=== PATIENT | male | born 1965 | race American Indian/Alaskan Native ===

== ENCOUNTER 2022-07-26 07:23 | Inpatient (IN) | payer MEDICARE ==
[2022-07-26 08:39] LABS: INR 1.25 (0.87-1.13)
[2022-07-26 08:41] LABS: Basophils % (Auto) 0.2 % (0.0-1.8); Eosinophils % (Auto) 0.1 % (0.0-4.3); Hematocrit 45.7 % (35.5-45.6); Hemoglobin 11.9 gm/dl (11.8-15.2); Lymphocytes # (Auto) 1.5 K/mm3 (1.2-5.4); Lymphocytes % (Auto) 11.2 % (13.4-35.0); Mean Corpuscular HGB Conc 26 % (32-34); Mean Corpuscular Volume 113 fl (84-94); Monocytes # (Auto) 1.2 K/mm3 (0.0-0.8); Monocytes % (Auto) 9.1 % (0.0-7.3); Platelet Count 353 K/mm3 (140-440); Red Blood Count 4.06 M/mm3 (3.65-5.03); Red Cell Distribution Width 16.5 % (13.2-15.2)
--- NOTE | 2022-07-26 08:42 | XRay Report ---
CHEST 1 VIEW 07/26/2022 8:07 AM INDICATION / CLINICAL INFORMATION: Altered Mental Status. COMPARISON: None available. FINDINGS: SUPPORT DEVICES: None. HEART / MEDIASTINUM: Heart is upper normal size for AP portable technique. Mild pulmonary venous rah estion. LUNGS / PLEURA: No significant pulmonary or pleural abnormality. No pneumothorax. ADDITIONAL FINDINGS: No significant additional findings. IMPRESSION: 1. Borderline cardiomegaly with mild pulmonary venous congestion. Signer Name: Marcie Giles MD Signed: 07/26/2022 8:38 AM Workstation Name: [id number]
[2022-07-26 08:50] LABS: Albumin 4.1 g/dL (3.9-5); Calcium 9.7 mg/dL (8.4-10.2)
[2022-07-26 08:57] LABS: ABG HCO3 1.5 mmol/L (20.0-26.0); ABG Methemoglobin 0.7 % (0.0-1.5); ABG Oxygen Saturation 98.5 % (95.0-99.0); ABG PCO2 8.7 mm Hg
[2022-07-26] MEDS ORDERED: SODIUM BICARB 8.4% 50 MEQ/50 ML SYRINGE IV ONE ×4 (08:58→17:00)
[2022-07-26] MEDS ORDERED: SODIUM CHLORIDE 0.9% 1000 ML 1,000 ML IV ONE (09:00)
[2022-07-26 09:05] LABS: ABG Base Excess > -30.0 mmol/L (-2.0-3.0); ABG PH 6.863 pH Units (7.350-7.450)
[2022-07-26] MEDS ORDERED: ETOMIDATE 20 MG/10 ML INJ IV ONE (09:38)
[2022-07-26] MEDS ORDERED: ROCURONIUM 50 MG/5 ML INJ IV ONE (09:38)
[2022-07-26] MEDS: INSULIN REGULAR, HUMAN 100 UNITS in SODIUM CHLORIDE 0.9% 99 ML IV SCH ×4 (09:49→20:32)
[2022-07-26] MEDS ORDERED: SODIUM BICARBONATE 150 MEQ in SODIUM CHLORIDE 0.9% 1000 ML 1,000 ML IV SCH (10:00)
[2022-07-26] MEDS ORDERED: cefTRIAXone/NS 1 GM/50 ML 1 GM/50 ML BAG IV ONE (11:25)
[2022-07-26] MEDS: NORepinephrine/NS 8 MG-250 ML 8 MG/250 ML INFUS..BTL IV SCH ×2 (11:52→23:18)
[2022-07-26 11:53] LABS: ABG Base Excess -28.7 mmol/L (-2.0-3.0); ABG HCO3 5.6 mmol/L (20.0-26.0); ABG Methemoglobin 0.6 % (0.0-1.5); ABG Oxygen Saturation 99.6 % (95.0-99.0); ABG PCO2 37.9 mm Hg
[2022-07-26] MEDS ORDERED: HYDROmorphone 0.5 MG/0.5 ML INJ IV PRN ×2 (11:59→12:04)
[2022-07-26] MEDS ORDERED: oxyCODONE /ACETAMINOPHEN 5-325MG TAB PO PRN (11:59)
[2022-07-26] MEDS ORDERED: ACETAMINOPHEN 325 MG TAB PO PRN ×2 (11:59→12:04)
[2022-07-26] MEDS ORDERED: NORepinephrine/NS 8 MG-250 ML 8 MG/250 ML INFUS..BTL IV SCH (12:00)
--- NOTE | 2022-07-26 12:01 | XRay Report ---
CHEST 1 VIEW 07/26/2022 11:23 AM INDICATION / CLINICAL INFORMATION: Dyspnea. COMPARISON: 07/26/22 8:12 AM FINDINGS: SUPPORT DEVICES: Endotracheal tube has been placed with the tip 6.7 cm above the chato. Right jugula r central line is in place with the tip projecting over the SVC. Esophagogastric tube has been placed with the distal tube doubled back on itself in the distal esophagus. HEART / MEDIASTINUM: No significant abnormality. LUNGS / PLEURA: No significant pulmonary or pleural abnormality. No pneumothorax. ADDITIONAL FINDINGS: No significant additional findings. IMPRESSION: 1. Endotracheal tube in expected position. 2. Esophagogastric tube doubled back on itself in the distal esophagus. Tube should be repositioned a nd advanced into the stomach for optimal positioning. 3. Central line in expected position. Signer Name: Marcie Giles MD Signed: 07/26/2022 11:56 AM Workstation Name: [id number]
[2022-07-26] MEDS ORDERED: VANCOMYCIN 0 MG in SODIUM CHLORIDE 0.9% 500 ML 500 ML IV ONE (12:04)
--- NOTE | 2022-07-26 12:06 | History and Physical Report ---
History of Present Illness Chief complaint: He is really sick History of present illness: 57 YO Male with HTN, DM, HLD, CHF, Metabolic Syndrome, Obesity Hypoventilation Syndrome, OA presents to ED for evaluation. Patient is intubated and on ventilatory support at the time my evaluation is unable to provide history. Patient history provided by who is at bedside during exam and interview. As per the patient was found to be unresponsive today. EMS was notified and upon arrival the patient was found to be in distress and subsequent transported to [facility] for further care and evaluation of the aforementioned symptoms. The patient was seen and evaluated in the emergency department. All lab and imaging studies reviewed. Patient was found to have a [place] Coma Score of 7 upon arrival, diabetic ketoacidosis complicated by acute hypoxemic respiratory failure, sepsis and acute kidney injury. Patient intubated urgently and placed on ventilatory support in the emergency department. Patient also initiated on sepsis and DKA protocols respectively. Patient found to have multiple organ system failure and poor prognosis. Patient informed of prognosis. No reports of fever, chills, chest pain, palpitation, productive cough, skin rash, recent contact, known exposure to COVID-19. No prior admiss ion for review. No medication listed at time of admission for reconciliation. Advanced care planning conducted in ED. Critical care team consulted, cardiology team consulted, nephrology team consulted. Past History Past Medical History: arthritis, diabetes, heart failure, hypertension, other (See HPI) Past Surgical History: Other (Reviewed) Social history: , lives with family Family history: diabetes, hypertension Medications and Allergies Allergies Allergy/AdvReac Type Severity Reaction Status Date / Time No Known Allergies Allergy Unverified 07/26/22 07:55 Active Meds: Active Medications Acetaminophen (Acetaminophen 325 Mg Tab) 650 mg PO Q6H PRN PRN Reason: Pain MILD(1-3)/Fever >100.5/CHAVEZ Hydromorphone HCl (Hydromorphone 0.5 Mg/0.5 Ml Inj) 0.5 mg IV Q23H PRN PRN Reason: Pain , Severe (7-10) Sodium Bicarbonate 150 meq/ (Sodium Chloride) 1,150 mls @ 100 mls/hr IV DIRECT MALDONADO Last Admin: 07/26/22 09:55 Dose: 100 mls/hr Insulin Human Regular 100 (units/ Sodium Chloride) 100 mls @ 1 mls/hr IV TITR MALDONADO; Protocol Last Admin: 07/26/22 09:49 Dose: 8 units/hr, 8 mls/hr NORepinephrine/NS 8 MG-250 ML (Norepinephrine/Ns 8 Mg-250 Ml (Double Conc)) 8 mg in 250 mls @ 3.75 mls/hr IV TITRATE MALDONADO; Protocol Last Titration: 07/26/22 11:55 Dose: 8 mcg/min, 15 mls/hr Oxycodone/Acetaminophen (Oxycodone /Acetaminophen 5-325mg Tab) 1 tab PO Q16H PRN PRN Reason: Pain, Moderate (4-6) Sodium Bicarbonate (Sodium Bicarb 8.4% 50 Meq/50 Ml Syringe) 50 meq IV ONCE ONE Stop: 07/26/22 14:04 Sodium Bicarbonate (Sodium Bicarb 8.4% 50 Meq/50 Ml Syringe) 50 meq IV ONCE ONE Stop: 07/26/22 17:01 Sodium Chloride (Sodium Chloride 0.9% 10 Ml Flush Syringe) 10 ml IV BID MALDONADO Sodium Chloride (Sodium Chloride 0.9% 10 Ml Flush Syringe) 10 ml IV PRN PRN PRN Reason: LINE FLUSH Review of Systems ROS unobtainable: due to endotracheal tube, due to mental status Exam - Constitutional Vitals: Temp Pulse Resp BP Pulse Ox 110 H 20 97/56 100 07/26/22 11:59 07/26/22 11:59 07/26/22 11:59 07/26/22 11:59 General appearance: Present: severe distress - EENT Eyes: Present: miosis ENT: hearing decreased - Neck Neck: Present: supple, normal ROM - Respiratory Respiratory effort: labored Respiratory: bilateral: diminished, rhonchi - Cardiovascular Heart Sounds: Present: S1 & S2. Absent: rub, click - Extremities Extremity abnormal: edema Peripheral Pulses: abnormal (Capillary refill greater than 3.5 seconds) - Abdominal General gastrointestinal: Present: soft, non-tender, non-distended - Integumentary Integumentary: Present: dry, clammy, decreased turgor - Musculoskeletal Musculoskeletal: generalized weakness - Psychiatric Psychiatric: no appropriate mood/affect, no intact judgment & insight, no memory intact - Neurologic Neurologic: CNII-XII intact, no focal deficits, moves all extremities, no gait normal HEART Score - HEART Score Troponin: Troponin T 0.027 ng/mL (0.00-0.029) 07/26/22 08:11 Results - Labs CBC & Chem 7: 07/26/22 08:11 07/26/22 11:36 Labs: Abnormal lab results 07/26/22 07/26/22 07/26/22 Range/Units 07:30 08:11 08:11 WBC 13.5 H (4.5-11.0) K/mm3 Hct 45.7 H (35.5-45.6) % MCV 113 H (84-94) fl MCHC 26 L (32-34) % RDW 16.5 H (13.2-15.2) % Lymph % (Auto) 11.2 L (13.4-35.0) % [place] % (Auto) 9.1 H (0.0-7.3) % [place] # (Auto) 1.2 H (0.0-0.8) K/mm3 Seg Neutrophils % 79.4 H (40.0-70.0) % Seg Neutrophils # 10.7 H (1.8-7.7) K/mm3 PT 17.2 H (12.2-14.9) Sec. INR 1.25 H (0.87-1.13) ABG pH (7.350-7.450) pH Units ABG pO2 (80.0-90.0) mm Hg ABG HCO3 (20.0-26.0) mmol/L ABG O2 Saturation (95.0-99.0) % ABG Base Excess (-2.0-3.0) mmol/L ABG Hemoglobin (14.0-18.0) gm/dl Sodium (137-145) mmol/L Potassium (3.6-5.0) mmol/L Chloride (98-107) mmol/L Carbon Dioxide (22-30) mmol/L BUN (9-20) mg/dL Creatinine (0.8-1.3) mg/dL Glucose (75-100) mg/dL POC Glucose > 600 H (70-105) mg/dL Lactic Acid (0.7-2.0) mmol/L Phosphorus (2.5-4.5) mg/dL Magnesium (1.7-2.3) mg/dL ALT (7-56) units/L Total Creatine Kinase (55-170) units/L Salicylates (2.8-20.0) mg/dL Acetaminophen (10.0-30.0) ug/mL 07/26/22 07/26/22 07/26/22 Range/Units 08:11 08:11 08:11 WBC (4.5-11.0) K/mm3 Hct (35.5-45.6) % MCV (84-94) fl MCHC (32-34) % RDW (13.2-15.2) % Lymph % (Auto) (13.4-35.0) % [place] % (Auto) (0.0-7.3) % [place] # (Auto) (0.0-0.8) K/mm3 Seg Neutrophils % (40.0-70.0) % Seg Neutrophils # (1.8-7.7) K/mm3 PT (12.2-14.9) Sec. INR (0.87-1.13) ABG pH (7.350-7.450) pH Units ABG pO2 (80.0-90.0) mm Hg ABG HCO3 (20.0-26.0) mmol/L ABG O2 Saturation (95.0-99.0) % ABG Base Excess (-2.0-3.0) mmol/L ABG Hemoglobin (14.0-18.0) gm/dl Sodium 136 L (137-145) mmol/L Potassium 7.6 H* (3.6-5.0) mmol/L Chloride 95.0 L (98-107) mmol/L Carbon Dioxide 2 L* (22-30) mmol/L BUN 33 H (9-20) mg/dL Creatinine 2.5 H (0.8-1.3) mg/dL Glucose 1037 H* (75-100) mg/dL POC Glucose (70-105) mg/dL Lactic Acid 4.00 H* (0.7-2.0) mmol/L Phosphorus (2.5-4.5) mg/dL Magnesium (1.7-2.3) mg/dL ALT 6 L (7-56) units/L Total Creatine Kinase 233 H (55-170) units/L Salicylates < 0.3 L (2.8-20.0) mg/dL Acetaminophen (10.0-30.0) ug/mL 07/26/22 07/26/22 07/26/22 Range/Units 08:11 08:11 08:48 WBC (4.5-11.0) K/mm3 Hct (35.5-45.6) % MCV (84-94) fl MCHC (32-34) % RDW (13.2-15.2) % Lymph % (Auto) (13.4-35.0) % [place] % (Auto) (0.0-7.3) % [place] # (Auto) (0.0-0.8) K/mm3 Seg Neutrophils % (40.0-70.0) % Seg Neutrophils # (1.8-7.7) K/mm3 PT (12.2-14.9) Sec. INR (0.87-1.13) ABG pH 6.863 L* (7.350-7.450) pH Units ABG pO2 179.0 H (80.0-90.0) mm Hg ABG HCO3 1.5 L (20.0-26.0) mmol/L ABG O2 Saturation (95.0-99.0) % ABG Base Excess > -30.0 L (-2.0-3.0) mmol/L ABG Hemoglobin 11.8 L (14.0-18.0) gm/dl Sodium (137-145) mmol/L Potassium (3.6-5.0) mmol/L Chloride (98-107) mmol/L Carbon Dioxide (22-30) mmol/L BUN (9-20) mg/dL Creatinine (0.8-1.3) mg/dL Glucose (75-100) mg/dL POC Glucose (70-105) mg/dL Lactic Acid (0.7-2.0) mmol/L Phosphorus (2.5-4.5) mg/dL Magnesium (1.7-2.3) mg/dL ALT (7-56) units/L Total Creatine Kinase 222 H (55-170) units/L Salicylates (2.8-20.0) mg/dL Acetaminophen 5.0 L (10.0-30.0) ug/mL 07/26/22 07/26/22 Range/Units 09:27 11:30 WBC (4.5-11.0) K/mm3 Hct (35.5-45.6) % MCV (84-94) fl MCHC (32-34) % RDW (13.2-15.2) % Lymph % (Auto) (13.4-35.0) % [place] % (Auto) (0.0-7.3) % [place] # (Auto) (0.0-0.8) K/mm3 Seg Neutrophils % (40.0-70.0) % Seg Neutrophils # (1.8-7.7) K/mm3 PT (12.2-14.9) Sec. INR (0.87-1.13) ABG pH (7.350-7.450) pH Units ABG pO2 (80.0-90.0) mm Hg ABG HCO3 5.6 L (20.0-26.0) mmol/L ABG O2 Saturation 99.6 H (95.0-99.0) % ABG Base Excess -28.7 L (-2.0-3.0) mmol/L ABG Hemoglobin 12.0 L (14.0-18.0) gm/dl Sodium (137-145) mmol/L Potassium (3.6-5.0) mmol/L Chloride (98-107) mmol/L Carbon Dioxide (22-30) mmol/L BUN (9-20) mg/dL Creatinine (0.8-1.3) mg/dL Glucose (75-100) mg/dL POC Glucose (70-105) mg/dL Lactic Acid (0.7-2.0) mmol/L Phosphorus 12.80 H (2.5-4.5) mg/dL Magnesium 2.80 H (1.7-2.3) mg/dL ALT (7-56) units/L Total Creatine Kinase (55-170) units/L Salicylates (2.8-20.0) mg/dL Acetaminophen (10.0-30.0) ug/mL Assessment and Plan - Patient Problems (1) Septic shock Current Visit: Yes Status: Acute Plan to address problem: Sepsis protocol: Chest x-ray, urinalysis, IV antibiotic therapy, IV fluid resuscitation therapy, maintain mean arterial pressure greater than equal to 65, IV pressor support, monitor urine output every shift, monitor fluid balance, blood culture, The high probability of a clinically significant, sudden or life threatening deterioration of the [cardiac, pulmonary, neuro, renal, infectious disease] system(s) required my full and direct attention, intervention and personal management. The aggregate critical care time was [95] minutes. This time is in addition to time spent performing reported procedures but includes the following: [x] Data Review and interpretation [x] Patient assessment and monitoring of vital signs [x] Documentation [x] Medication orders and management (2) DKA (diabetic ketoacidosis) Current Visit: Yes Status: Acute Qualifiers: Diabetes mellitus type: type 1 Plan to address problem: DKA protocol: IV fluid resuscitation therapy, insulin drip,'s serial BMP, monitor anion gap, potassium repletion as per protocol. (3) Acute hypoxemic respiratory failure Current Visit: Yes Status: Acute Plan to address problem: Patient intubated and ambulatory support, wean vent as tolerated, daily sedation holiday, daily spontaneous breathing trial, daily arterial blood gas, (4) Toxic metabolic encephalopathy Current Visit: Yes Status: Acute Plan to address problem: Treat sepsis, neuro check, IV fluid resuscitation therapy, continue medical management. (5) Metabolic acidosis Current Visit: Yes Status: Acute Plan to address problem: IV fluid resuscitation therapy, BMP, IV bicarbonate therapy, serial BMP, serial lactic acid level. (6) Acute kidney injury (MICK) with acute tubular necrosis (ATN) Current Visit: Yes Status: Acute Plan to address problem: IV fluid resuscitation therapy, monitoring output every shift, monitor fluid balance, BMP, repeat BMP in a.m. (7) Cardiorenal syndrome with renal failure Current Visit: Yes Status: Acute Plan to address problem: IV fluid resuscitation therapy, BMP, repeat BMP in a.m., monitor fluid balance, nephrology team consulted. (8) CHF (congestive heart failure) Current Visit: Yes Status: Acute Qualifiers: Heart failure chronicity: chronic Plan to address problem: Strict I's/O, monitor urine output every shift monitor daily weight, afterload reduction, continue current care. Cardiology team consulted. Echocardiogram ordered and pending at time of admission. (9) DVT prophylaxis Current Visit: Yes Status: Acute Plan to address problem: SCD to bilateral lower extremities while in bed, prophylactic anticoagulation (10) Advance care planning Current Visit: Yes Status: Acute Plan to address problem: Disease education data, care plan discussed, diagnoses discussed, prognosis discussed, patient is full code. Patient at bedside and acknowledges understanding and agreement with care plan. Patient visibly frustrated when given information regarding patient poor prognosis and diagnosis of multiple organ system failure. +30 minutes. (11) Preventative health care Current Visit: Yes Status: Acute Plan to address problem: Patient family counseled regarding patient prognosis, need for close outpatient follow-up and adherence with medication therapy, outpatient follow-up with primary care physician for all age and risk factor appropriate screening test. +30 minutes.
--- NOTE | 2022-07-26 12:22 | Emergency Department Report ---
ED General Adult HPI - General Chief complaint: Hyperglycemia Stated complaint: EVELVATED BS PUI?: No Time Seen by Provider: 07/26/22 07:40 Source: family, EMS Mode of arrival: Stretcher Limitations: Altered Mental Status - History of Present Illness Initial comments: Pt presents with AMS, hyperglycemia, tachycardia and tachypnea stated that they went to wedding yesterday and today he was breathing hard and not acting like himself -: unknown Severity scale (0 -10): 9 Improves with: none Worsens with: none Associated Symptoms: confusion, malaise, shortness of breath, weakness - Related Data Allergies Allergy/AdvReac Type Severity Reaction Status Date / Time No Known Allergies Allergy Unverified 07/26/22 07:55 ED Review of Systems ROS: Stated complaint: EVELVATED BS Other details as noted in HPI Comment: Unobtainable due to pts medical conditions ED Past Medical Hx - Past Medical History Hx Hypertension: Yes Hx Congestive Heart Failure: Yes Hx Diabetes: Yes ED Physical Exam - General Limitations: Altered Mental Status General appearance: obtunded - Head Head exam: Present: atraumatic, normocephalic - Eye Eye exam: Present: normal appearance - ENT ENT exam: Present: mucous membranes dry - Neck Neck exam: Present: normal inspection - Respiratory Respiratory exam: Present: accessory muscle use, decreased breath sounds. Absent: respiratory distress - Cardiovascular Cardiovascular Exam: Present: normal rhythm, tachycardia. Absent: systolic murmur, diastolic murmur, rubs, gallop - GI/Abdominal GI/Abdominal exam: Present: soft, normal bowel sounds - Rectal Rectal exam: Present: deferred - Extremities Exam Extremities exam: Present: normal inspection - Back Exam Back exam: Present: normal inspection - Expanded Neurological Exam Expanded Best Eye Response (Colby): (3) open to voice Best Motor Response ([place]): (3) flexion to pain Best Verbal Response (Shock): (1) no verbal response Colby Total: 7 - Skin Skin exam: Present: warm, dry, intact, normal color. Absent: rash ED Course Vital Signs 07/26/22 07/26/22 10:10 11:59 Pulse Rate 110 H Respiratory 20 Rate Blood Pressure 97/56 [Right] O2 Sat by Pulse 100 100 Oximetry - Central Line Placement Right IJ Consent Obtained: emergent situation Time Out Performed: Yes Patient Placed on Monitor/Pulse Ox: Yes MD Prep: mask, gown, gloves Central Line Prep: Chlorhexidine scrub Ultrasound Used for Placement: Yes Central Line Lumen Inserted: triple Reason for Insertion: Volume Resuscitation Central Line Position: good blood return, all ports aspirated, flus, sutured in place with 2-0 Dressing Applied: Tegaderm Post Procedure X-Ray: tip of catheter in good p Patient Tolerated Procedure: well, no complications - Intubation Time Out Performed: Yes Sedative: Etomidate Mg Given: 20 Paralytic: Rocuronium Mg Given: 40 Laryngoscope: fiberoptic video scope Size: 3 ET Tube Size: 7.5 Tube Secured Depth (cm): 22 Tube Secured Location: teeth Tube Placement Confirmation: visualized tube passing t, equal breath sounds bilat, no breath sounds over epi, confirmation by capnometr Patient Tolerated Procedure: well, no complications Intubation Complications: none ED Medical Decision Making - Lab Data Result diagrams: 07/26/22 08:11 07/26/22 11:36 - EKG Data -: EKG Interpreted by Nv EKG shows normal: sinus rhythm Rate: tachycardia - Radiology Data Radiology results: report reviewed, image reviewed - Medical Decision Making work up showed : - DKA : fluids given , insulin drip and insulin bolus - acidosis : bicarb drip - respiratory failure : intubated with high rate - Sepsis : most liekly seconday to DKA, but will start abx - cental line placed Critical Care Time: Yes Critical care attestation.: If time is entered above; I have spent that time in minutes in the direct care of this critically ill patient, excluding procedure time. Critical Care Time: 120 ED Disposition Clinical Impression: AMS (altered mental status), DKA (diabetic ketoacidosis), Respiratory failure Disposition: ADMITTED INPATIENT Is pt being admited?: Yes Does the pt Need Aspirin: No Condition: Critical Instructions: Diabetic Ketoacidosis (ED) Referrals: PRIMARY CARE, [Primary Care Provider] - 3-5 Days
[2022-07-26] MEDS ORDERED: SODIUM CHLORIDE 0.9% 1000 ML 3,000 ML ONE (12:23)
[2022-07-26 12:52] LABS: ABG PH TNR pH Units (7.350-7.450)
[2022-07-26] MEDS ORDERED: INSULIN REGULAR, HUMAN 100 UNITS/1 ML IV ONE (12:57)
[2022-07-26] MEDS ORDERED: VANCOMYCIN PHARMACY TO DOSE IV SCH (13:00)
[2022-07-26 13:07] LABS: Color,Urine Straw (Yellow); WBC,Urine < 1.0 /HPF (0.0-6.0)
[2022-07-26] MEDS ORDERED: SODIUM CHLORIDE 0.9% 1000 ML 1,000 ML ONE (13:15)
[2022-07-26 13:17] LABS: Amphetamine Screen,Urine Negative; Benzodiazepines Screen,Urine Negative; Cannabinoid Screen,Urine Negative; Cocaine Screen,Urine Negative; Methadone Screen,Urine Negative; Opiate Screen,Urine Negative
--- NOTE | 2022-07-26 13:34 | XRay Report ---
CHEST 1 VIEW 07/26/2022 12:49 PM INDICATION / CLINICAL INFORMATION: Dyspnea. COMPARISON: Earlier same day FINDINGS: SUPPORT DEVICES: Esophogastric tube side-port is in the distal esophagus. The distal portion of the t ube is not well seen. Right IJ central venous catheter and endotracheal tube are in similar position. HEART / MEDIASTINUM: No significant abnormality. LUNGS / PLEURA: No significant pulmonary or pleural abnormality. No pneumothorax. ADDITIONAL FINDINGS: No significant additional findings. IMPRESSION: 1. Esophogastric tube side-port appears to be in the distal esophagus with the tip not clearly seen. Abdominal radiograph may be helpful for better evaluation. 2. Remaining support devices in similar position. Signer Name: Justino Chow MD Signed: 07/26/2022 1:29 PM Workstation Name: [facility]
--- NOTE | 2022-07-26 13:42 | Procedure Note ---
Date of procedure: 07/26/22 Pre-op diagnosis: Septic shock, respiratory failure Post-op diagnosis: same Procedure: Right femoral artery catheter. After informed consent was obtained the patient was prepped and draped in usual sterile fashion. Local anesthesia obtained with 1% lidocaine. An ultrasound was utilized to localize the right femoral artery. The Seldinger technique was utilized to access the right femoral artery under ultrasound guidance with a seeker needle. A guidewire was then advanced into the right femoral artery and the seeker needle removed. A scalpel was used to incise the skin at the insertion site. A femoral artery catheter was advanced over the guidewire and gently into the right femoral artery and the guidewire subsequently removed. A pulsatile blood flow was observed from the right femoral arterial line. The arterial line was subsequently attached to the monitor with good waveform. 3-0 silk suture was utilized to suture the femoral arterial line in place. A sterile dressing was applied over the femoral artery catheter. Estimated blood loss minimal. Complications none. Specimens none. Anesthesia: local Lacquer Sizer: PASQUALE RODRÍGUEZ Estimated blood loss: minimal Condition: critical Disposition: ICU
[2022-07-26] MEDS ORDERED: VANCOMYCIN 2,000 MG in SODIUM CHLORIDE 0.9% 500 ML 500 ML IV ONE (14:00)
--- NOTE | 2022-07-26 15:03 | Cat Scan Report ---
CT HEAD WITHOUT CONTRAST INDICATION / CLINICAL INFORMATION: Altered Mental Status. TECHNIQUE: All CT scans at this location are performed using CT dose reduction for ALARA by means of automated exposure control. COMPARISON: None available. FINDINGS: HEMORRHAGE: None. EXTRA-AXIAL SPACES: Normal in size and morphology for the patient's age. VENTRICULAR SYSTEM: Normal in size and morphology for the patient's age. CEREBRAL PARENCHYMA: No significant abnormality. No acute territorial infarct. MIDLINE SHIFT / HERNIATION: None. CEREBELLUM / BRAINSTEM: No significant abnormality. ORBITS: Normal as visualized. SOFT TISSUES: No significant abnormality. SKULL: No significant abnormality. PARANASAL SINUSES / MASTOID AIR CELLS: Normal as visualized. ADDITIONAL FINDINGS: None. IMPRESSION: 1. No acute intracranial abnormality. Signer Name: Justino Chow MD Signed: 07/26/2022 2:58 PM Workstation Name: [email or web address]
--- NOTE | 2022-07-26 15:36 | XRay Report ---
ABDOMEN 1 VIEW 07/26/2022 3:08 PM INDICATION / CLINICAL INFORMATION: NG tube. COMPARISON: Chest radiograph earlier same day FINDINGS: TUBES / LINES: Esophogastric tube side-port is above the GE junction. BOWEL GAS PATTERN: No significant abnormality. FREE AIR / EXTRALUMINAL GAS: None. ADDITIONAL FINDINGS: No significant additional findings. IMPRESSION: 1. Esophagogastric tube is above the GE junction. Recommend further advancement by approximately 7 cm for more optimal positioning. Signer Name: Justino Chow MD Signed: 07/26/2022 3:32 PM Workstation Name: [employer]
--- NOTE | 2022-07-26 15:47 | Consultation ---
History of Present Illness Consult date: 07/26/22 Requesting physician: PASQUALE RODRÍGUEZ Reason for consult: other (Acute Hypoxemic Respiratory Failure) History of present illness: PULMONARY/CCM CONSULT NOTE (Full dictation # [id number]) Please see dictated notes for full details Past History Past Medical History: arthritis, diabetes, heart failure, hypertension, other (See HPI) Past Surgical History: Other (Reviewed) Social history: , lives with family Family history: diabetes, hypertension Medications and Allergies Allergies Allergy/AdvReac Type Severity Reaction Status Date / Time No Known Allergies Allergy Unverified 07/26/22 07:55 Active Meds: Active Medications Acetaminophen (Acetaminophen 325 Mg Tab) 650 mg PO Q6H PRN PRN Reason: Pain, Mild (1-3) Hydromorphone HCl (Hydromorphone 0.5 Mg/0.5 Ml Inj) 0.5 mg IV Q23H PRN PRN Reason: Pain , Severe (7-10) Hydromorphone HCl (Hydromorphone 0.5 Mg/0.5 Ml Inj) 0.25 mg IV Q4H PRN PRN Reason: Pain, Moderate (4-6) Sodium Bicarbonate 150 meq/ (Sodium Chloride) 1,150 mls @ 100 mls/hr IV DIRECT MALDONADO Last Admin: 07/26/22 09:55 Dose: 100 mls/hr Insulin Human Regular 100 (units/ Sodium Chloride) 100 mls @ 1 mls/hr IV TITR MALDONADO; Protocol Last Admin: 07/26/22 09:49 Dose: 8 units/hr, 8 mls/hr NORepinephrine/NS 8 MG-250 ML (Norepinephrine/Ns 8 Mg-250 Ml (Double Conc)) 8 mg in 250 mls @ 3.75 mls/hr IV TITRATE MALDONADO; Protocol Last Titration: 07/26/22 11:55 Dose: 8 mcg/min, 15 mls/hr Vancomycin HCl 2,000 mg/ (Sodium Chloride) 540 mls @ 250 mls/hr IV ONCE ONE Stop: 07/26/22 16:09 Levothyroxine Sodium (Levothyroxine 100 Mcg Inj) 100 mcg IV DAILY@0600 MALDONADO Oxycodone/Acetaminophen (Oxycodone /Acetaminophen 5-325mg Tab) 1 tab PO Q16H PRN PRN Reason: Pain, Moderate (4-6) Sodium Bicarbonate (Sodium Bicarb 8.4% 50 Meq/50 Ml Syringe) 50 meq IV ONCE ONE Stop: 07/26/22 17:01 Sodium Chloride (Sodium Chloride 0.9% 10 Ml Flush Syringe) 10 ml IV BID MALDONADO Sodium Chloride (Sodium Chloride 0.9% 10 Ml Flush Syringe) 10 ml IV PRN PRN PRN Reason: LINE FLUSH Physical Examination Vital signs: Vital Signs Pulse Resp Pulse Ox 100 H 24 100 07/26/22 10:10 07/26/22 10:10 07/26/22 10:10 Results - Laboratory Findings CBC and BMP: 07/26/22 08:11 07/26/22 11:36 ABG ABG pH TNR 07/26/22 11:30 ABG pCO2 37.9 mm Hg 07/26/22 11:30 ABG pO2 574.0 mm Hg (80.0-90.0) H 07/26/22 11:30 ABG O2 Saturation 99.6 % (95.0-99.0) H 07/26/22 11:30 PT/INR, D-dimer PT 17.2 Sec. (12.2-14.9) H 07/26/22 08:11 INR 1.25 (0.87-1.13) H 07/26/22 08:11 Abnormal lab findings: Abnormal Labs 07/26/22 07/26/22 07/26/22 07:30 08:11 08:11 WBC 13.5 H Hct 45.7 H MCV 113 H MCHC 26 L RDW 16.5 H Lymph % (Auto) 11.2 L Armstrong % (Auto) 9.1 H Armstrong # (Auto) 1.2 H Seg Neutrophils % 79.4 H Seg Neutrophils # 10.7 H PT 17.2 H INR 1.25 H ABG pH ABG pO2 ABG HCO3 ABG O2 Saturation ABG Base Excess ABG Hemoglobin Sodium Potassium Chloride Carbon Dioxide BUN Creatinine Glucose POC Glucose > 600 H Lactic Acid Phosphorus Magnesium ALT Total Creatine Kinase Salicylates Acetaminophen 07/26/22 07/26/22 07/26/22 08:11 08:11 08:11 WBC Hct MCV MCHC RDW Lymph % (Auto) Armstrong % (Auto) Armstrong # (Auto) Seg Neutrophils % Seg Neutrophils # PT INR ABG pH ABG pO2 ABG HCO3 ABG O2 Saturation ABG Base Excess ABG Hemoglobin Sodium 136 L Potassium 7.6 H* Chloride 95.0 L Carbon Dioxide 2 L* BUN 33 H Creatinine 2.5 H Glucose 1037 H* POC Glucose Lactic Acid 4.00 H* Phosphorus Magnesium ALT 6 L Total Creatine Kinase 233 H Salicylates < 0.3 L Acetaminophen 07/26/22 07/26/22 07/26/22 08:11 08:11 08:48 WBC Hct MCV MCHC RDW Lymph % (Auto) Armstrong % (Auto) Armstrong # (Auto) Seg Neutrophils % Seg Neutrophils # PT INR ABG pH 6.863 L* ABG pO2 179.0 H ABG HCO3 1.5 L ABG O2 Saturation ABG Base Excess > -30.0 L ABG Hemoglobin 11.8 L Sodium Potassium Chloride Carbon Dioxide BUN Creatinine Glucose POC Glucose Lactic Acid Phosphorus Magnesium ALT Total Creatine Kinase 222 H Salicylates Acetaminophen 5.0 L 07/26/22 07/26/22 07/26/22 09:27 11:30 11:36 WBC Hct MCV MCHC RDW Lymph % (Auto) Armstrong % (Auto) Armstrong # (Auto) Seg Neutrophils % Seg Neutrophils # PT INR ABG pH ABG pO2 574.0 H ABG HCO3 5.6 L ABG O2 Saturation 99.6 H ABG Base Excess -28.7 L ABG Hemoglobin 12.0 L Sodium Potassium Chloride Carbon Dioxide BUN Creatinine Glucose POC Glucose Lactic Acid 3.30 H* Phosphorus 12.80 H Magnesium 2.80 H ALT Total Creatine Kinase Salicylates Acetaminophen 07/26/22 11:36 WBC Hct MCV MCHC RDW Lymph % (Auto) Armstrong % (Auto) Armstrong # (Auto) Seg Neutrophils % Seg Neutrophils # PT INR ABG pH ABG pO2 ABG HCO3 ABG O2 Saturation ABG Base Excess ABG Hemoglobin Sodium Potassium 7.0 H* Chloride Carbon Dioxide 4 L* BUN 35 H Creatinine 2.8 H Glucose 977 H* POC Glucose Lactic Acid Phosphorus Magnesium ALT Total Creatine Kinase Salicylates Acetaminophen
[2022-07-26] MEDS ORDERED: LIP THERAPY VASELINE TP PRN (16:11)
[2022-07-26] MEDS ORDERED: fentaNYL 100 MCG/2 ML INJ IV PRN (16:11)
[2022-07-26] MEDS ORDERED: MINERAL OIL/PETROLATUM, WHITE OPHTH OINT 3.5 GM OU PRN (16:11)
[2022-07-26] MEDS ORDERED: fentaNYL DRIP Premix 2,000 MCG/100 ML BAG IV SCH (17:00)
--- NOTE | 2022-07-26 18:38 | Event Note ---
Date: 07/26/22 No labs so far. Spoke with nurse to do BMP.
[2022-07-26] MEDS ORDERED: VASOPRESSIN 20 UNIT in SODIUM CHLORIDE 0.9% 100 ML IV SCH (19:00)
[2022-07-26 19:21] LABS: Calcium 8.4 mg/dL (8.4-10.2)
[2022-07-26] MEDS: SENNOSIDES/DOCUSATE SODIUM 8.6/50 MG TAB FEEDTUBE SCH (21:09)
[2022-07-26 21:17] LABS: ABG Base Excess -15.1 mmol/L (-2.0-3.0); ABG HCO3 8.4 mmol/L (20.0-26.0); ABG Methemoglobin 0.5 % (0.0-1.5); ABG Oxygen Saturation 99.4 % (95.0-99.0); ABG PCO2 16.3 mm Hg; ABG PH 7.329 pH Units (7.350-7.450); ABG PO2 258.5 mm Hg (80.0-90.0)
[2022-07-26] MEDS ORDERED: ONDANSETRON 4 MG/2 ML INJ ONE (22:04)
[2022-07-26] MEDS: ONDANSETRON 4 MG/2 ML INJ IV PRN (22:12)
[2022-07-26] MEDS ORDERED: SODIUM BICARBONATE 150 MEQ in DEXTROSE 5% IN WATER 1,000 ML IV SCH (23:45)
[2022-07-27] MEDS: INSULIN REGULAR, HUMAN 100 UNITS in SODIUM CHLORIDE 0.9% 99 ML IV SCH (00:08)
--- NOTE | 2022-07-27 01:02 | Consultation ---
DATE OF CONSULTATION: 07/26/2022 PULMONARY CRITICAL CARE CONSULT NOTE CONSULTING PHYSICIAN: Dr. Hernandez. REASON FOR CONSULTATION: Acute hypoxemic respiratory failure, on mechanical ventilatory support, diabetic ketoacidosis. CHIEF COMPLAINT AND HISTORY OF PRESENT ILLNESS: As follows: The patient is a now 57-year-old male with a past medical history significant amongst other things for a diagnosis of congestive heart failure and diabetes as well as obesity hypoventilation syndrome, who presented to the Emergency Room after he was found unresponsive. Emergency Medical Services were called by the and they brought him to the Emergency Room. His GCS was 7 on arrival. He was diagnosed with diabetic ketoacidosis. He was complicated with an acute hypoxemic respiratory failure, sepsis and acute kidney injury. He was not maintaining his airway oxygenation, so he was emergently intubated in the Emergency Room and ultimately confirmed with multiple organ system failure. ICU admission was requested and offered. When I stopped by to see him in intensive care unit, he had just came from the Emergency Room. He was on the mechanical ventilator with settings of assist control, PRVC mode of ventilation, tidal volumes 500, rate of 18 and PEEP of 5 and 50% FiO2. He was not responsive. The above is as much of the history of presentation as I have. The patient's tobacco use/abuse history is unknown. The history is also according to the records that he was at a green party, a wedding, last night and it is unclear if he was taking his medications as prescribed. PAST MEDICAL HISTORY: Diabetes, congestive heart failure, hypertension, hyperlipidemia, obesity hypoventilation syndrome, osteoarthritis. PAST SURGICAL HISTORY: Unknown. MEDICATIONS: He was on at the time I stopped by to see him, according to the medication administration record included the following: Tylenol 650 mg p.o. q. 6 hours p.r.n. mild pain or fevers, Dilaudid 0.5 mg IV q. 23 hours as well as 0.25 mg IV q. 4 hours p.r.n. moderate pain, insulin drip was going at 8 units per hour, Synthroid 100 mg IV daily, Levophed had been ordered at 2 mcg per minute, Percocet 5/325 one tablet p.o. q. 16 hours p.r.n. moderate pain, bicarbonate drip 150 mEq per liter was going at 100 mL per hour. Vancomycin, he received a 2 gram dose x1. He also received Rocephin earlier in the Emergency Room. ALLERGIES: No known drug allergies. DIET: Obese gentleman. Family denies acute weight loss or gain in the preceding few weeks to months. FAMILY AND SOCIAL HISTORY: Lives in the community. He is . Alcohol, tobacco or illicit drug use or abuse history unknown. Family history otherwise unknown. REVIEW OF SYSTEMS: Unobtainable secondary to the patient's medical and mental condition. Since he has been here, no gross hematochezia or melena, no gross hematuria, no hematemesis, no bloody tracheal secretions, no witnessed seizures. Review of systems otherwise unobtainable or as in the body of history above. PHYSICAL EXAMINATION: VITAL SIGNS: Temperature in the ER according to the RN was 96.2 Fahrenheit, pulse was 100, respiratory rate was 24 and irregular, blood pressure was 96/52 and O2 sats were 100%, inspired oxygen concentration at that time was not recorded. GENERAL: He is a middle-aged, morbidly obese male. Normocephalic, atraumatic, on the mechanical ventilator without significant patient ventilator dyssynchrony. HEAD, EYES, EARS, NOSE AND THROAT: Anicteric. No conjunctival erythema. Oropharynx was moist. Endotracheal tube was taped around 24 cm at the lips. No gross jugular venous distention, no thyromegaly. He does have a large neck circumference. He also has a right internal jugular central line in place without significant bleeding around the stoma. Grossly, there were no palpable lymph nodes in the supraclavicular or submandibular lymph node chains. LUNGS: Auscultation of both lung duron, apart from distant breath sounds, likely due to obesity, revealed scant basilar rhonchi, no active wheezing. HEART: Sounds 1 and 2 are heard at the time of my evaluation, regular rate and rhythm without overt rubs or murmurs. ABDOMEN: Soft, full, bowel sounds are positive. It was protuberant. No palpable hepatosplenomegaly. EXTREMITIES: Without overt digital clubbing or cyanosis. He did have a trace to 1+ pedal edema. Pedal pulses are 2+ bilaterally. NEUROLOGIC: Pupils are equal, round, about 2 mm, sluggishly reactive to light. Extraocular muscle movements could not be assessed. He did have spontaneous movements to his extremities. SKIN: Normal turgor in the areas I examined without overt cellulitis or rash. Please see the wound care nurses' notes for full description of his skin. PSYCHIATRIC: Mood and affect could not be assessed. He was sedated. LABORATORY DATA: From my review are as follows: Admission white cell count 13,500, hemoglobin 11.9, hematocrit 45.7, platelet count was 353. No manual differential. INR was 1.25. Arterial blood gas pre-intubation showed a pH of 6.86, pCO2 was 9, pO2 was 179 on 4 liters nasal cannula. Post-intubation, I do not have the pH, the pCO2 is up to 38, the pO2 was 574 on the 100% FiO2. Serum sodium was 143, potassium 7.0, chloride 101, bicarbonate was 4, BUN was 35, creatinine was 2.8, glucose 977. Lactic acid level was 3.3. Phosphorus and mag were elevated. Troponin within normal limits. Liver function test within normal limits. Urinalysis negative for nitrites and leukocyte esterase, really bland. Urine drug screen was presumptive negative. Aspirin, Tylenol, alcohol levels were within expected limits. Coronavirus PCR test is pending. I do not see any microbiology studies here that have been reported. Chest x-ray shows an endotracheal tube in good position, right IJ central line tip in the distal SVC lumen. No gross pneumothorax. He does have cardiomegaly. No gross bony fracture. Mild interstitial edema at worst. ASSESSMENT: 1. Acute hypoxemic respiratory failure, on mechanical ventilatory support. 2. Acute toxic metabolic encephalopathy due to diabetic ketoacidosis. 3. Diabetic ketoacidosis. 4. Sepsis, etiology unknown, unspecified. 5. Acute hypoxemic respiratory failure, on mechanical ventilatory support if not already mentioned above. 6. Acute kidney injury. 7. History of congestive heart failure. 8. Leukocytosis. 9. Lactic acidosis. 10. Hyperkalemia. PLAN: We are going to keep him on full mechanical ventilator support in the short time. We are going to repeat the arterial blood gas at 9:00 p.m. day[place] and make adjustments from that point, I will see if we can get the pH on the current gas. For now, we will leave the rate at 18. He is breathing a little bit above the rate. I will actually increase that rate to 24 until we know exactly what the pH is and ensure that we were able to compensate for any possible metabolic acidosis, if necessary. Ventilator-associated pneumonia bundle has been introduced. Oxygen will be weaned to keep sats greater than or equal to about 90%. Bronchodilators, routine pulmonary hygiene will be per the respiratory therapist. He has been started on the DKA protocol. He is on IV insulin. Electrolytes are going to be monitored closely and corrected as necessary. Nephrology evaluation will be at the behest of the attending physician. Most likely, a prerenal issue at this point. Volume resuscitation is ongoing. In the short term, there will be replenishment of the serum bicarbonate. Enteral nutrition will be the feeding modality of choice once he is cleared to resume oral meal. Medications, we will continue the empiric vancomycin. I do not see any evidence of the pneumonia or UTI at this point. Random vancomycin level will be followed. Infectious disease consultation will be at the behest of the attending physician. I am going to put him on GI prophylaxis with Pepcid. He is also going to be placed on DVT prophylaxis with heparin. Flu and pneumonia vaccination will be addressed per protocol. Thank you very much for the consult. I should mention vasopressors will be weaned to keep mean arterial pressures greater than or equal to about 65 mmHg. We will follow along and make further recommendations as picture progresses/becomes clearer. I will also be getting a CT scan of his brain actually that has been done thankfully and has been read as negative CT of the brain. He remains critically ill on life-sustaining interventions including the vasopressors, the IV insulin therapy and mechanical ventilation at very high risk of from cardiopulmonary system decompensation and renal system decompensation and endocrine system decompensation. At this time, I spent about 35-40 minutes of critical care time without overlap and excluding any procedural time that may be necessary. TID: [id number] RECEIPT: [id number] GHASSAN/ELISABET/MORENA
[2022-07-27 01:26] LABS: Calcium 8.4 mg/dL (8.4-10.2)
[2022-07-27] MEDS: POTASSIUM CHLORIDE 20 MEQ 20 MEQ/100 ML BAG IV SCH ×2 (02:05→03:08)
--- NOTE | 2022-07-27 02:34 | XRay Report ---
CHEST 1 VIEW 07/27/2022 1:42 AM INDICATION / CLINICAL INFORMATION: follow up respiratory failure. COMPARISON: One view of the chest from 07/26/2022. FINDINGS: SUPPORT DEVICES: Satisfactory positioning of ET tube and right internal jugular CVL. The esophagogast rashard tube is similarly positioned as visualized. HEART / MEDIASTINUM: No significant abnormality. LUNGS / PLEURA: No significant pulmonary abnormality. No significant pleural effusion. No pneumothora x. ADDITIONAL FINDINGS: No significant additional findings. IMPRESSION: 1. No acute abnormality of the chest. No significant interval changes. Signer Name: Randall Quarles MD Signed: 07/27/2022 2:30 AM Workstation Name: [id number]
[2022-07-27] MEDS: LEVOTHYROXINE 100 MCG INJ IV SCH (05:06)
[2022-07-27] MEDS ORDERED: POTASSIUM CHLORIDE 20 MEQ PACKET FEEDTUBE SCH (08:30)
--- NOTE | 2022-07-27 09:13 | Progress Note ---
Assessment and Plan Acute hypoxemic respiratory failure on MVS Acute toxic metabolic encephalopathy Diabetic ketoacidosis Sepsis unspecified Acute kidney injury H/O CHF Leukocytosis Lactic acidosis Hyperkalemia - placed on SBT via PSV with p-supp @ 6 cm H2O and pulling good volumes - repeat ABG after 2 hours - still with lethargy and will tentatively plan to extubate tomorrow if continues to tolerate and passes SBT - hold sedatives - correct electrolytes aggressively re: optimizing respiratory dot - continue to wean supplemental oxygen for target O2 sat's > 90% acutely - continue Daily SAT and SBT assessment as tolerated - VAP bundle addressed - continue lung protective strategies - continue bronchodilators with pulmonary hygiene per RT - wean per pulmonary driven protocols otherwise - avoid nephrotoxins, renally dose all medications - continue accuchecks with glycemic control per SSI (While critically ill target blood glucose of 140-180 mg/dL; avoid hypoglycemia) - sedation prn for target RASS 0 to -1 - continue to avoid benzodiazepine's, reduce the possibility of delirium - complete empiric CAP AB's - prn analgesia per CPOT score - Maintenance of sleep-wake cycle, avoid delirium - continue enteral nutritional support at goal rate as tolerated - G.I. & VTE prophylaxis - PT/OT/ROM exercises - continue mobility protocols for pressure ulcer prophylaxis - Monitor hemodynamics closely - continue other care per attending / other consultants - discharge planning ongoing concurrently COVID SPECIFIC INTERVENTIONS - COVID-19 PCR negative .... Re-evaluate in am & prn CONDITION: CRITICAL PROGNOSIS: GUARDED CODE STATUS: FULL CODE The high probability of a clinically significant, sudden or life-threatening deterioration of the [respiratory, cardiovascular, renal & neurologic] system(s) required my full and direct attention, intervention and personal management. The aggregate critical care time was [36] minutes without overlap. Time includes spent on; [x] Data Review and interpretation [x] Patient assessment and monitoring of vital signs [x] Documentation [x] Medication orders and management Subjective Date of service: 07/27/22 Principal diagnosis: Acute hypoxemic respiratory failure; AMS; DKA; Sepsis; MICK; CHF; Obesity Interval history: Patient is seen today for: Acute hypoxemic respiratory failure on MVS; AMS; DKA; Sepsis; MICK; H/O CHF; Lactic acidosis; Obesity Seen and examined at bedside; 24hour events reviewed; nursing and respiratory care staff consulted; no adverse overnight events reported to me; resting peacefully in bed; remains on MVS but ventilation much better; follows simple commands; remains on IV insulin; no N/V/F/C; tolerated bedside SBT well; azotemia Objective Vital Signs - 12hr 07/26/22 07/26/22 07/26/22 21:11 21:21 21:30 Temperature Pulse Rate 108 H 106 H 106 H Respiratory 26 H 22 25 H Rate Blood Pressure 92/59 105/60 109/59 O2 Sat by Pulse 100 100 100 Oximetry 07/26/22 07/26/22 07/26/22 21:41 21:51 21:56 Temperature Pulse Rate 107 H 104 H Respiratory 22 21 Rate Blood Pressure 109/59 98/60 O2 Sat by Pulse 100 100 100 Oximetry 07/26/22 07/26/22 07/26/22 22:00 22:11 22:14 Temperature 98.4 F Pulse Rate 107 H 111 H 112 H Respiratory 25 H 21 Rate Blood Pressure 96/57 96/57 O2 Sat by Pulse 100 100 Oximetry 07/26/22 07/26/22 07/26/22 22:21 22:30 22:41 Temperature Pulse Rate 112 H 111 H 111 H Respiratory 21 24 21 Rate Blood Pressure 116/56 110/60 110/60 O2 Sat by Pulse 100 100 100 Oximetry 07/26/22 07/26/22 07/26/22 22:51 23:00 23:08 Temperature Pulse Rate 110 H 138 H 109 H Respiratory 22 25 H 25 H Rate Blood Pressure 96/57 102/50 O2 Sat by Pulse 100 100 100 Oximetry 07/26/22 07/26/22 07/26/22 23:10 23:20 23:30 Temperature Pulse Rate 110 H 110 H 107 H Respiratory 22 25 H 24 Rate Blood Pressure 102/50 115/56 117/59 O2 Sat by Pulse 100 100 100 Oximetry 07/26/22 07/26/22 07/26/22 23:36 23:37 23:41 Temperature 99 F Pulse Rate 108 H 108 H Respiratory 23 25 H Rate Blood Pressure 117/59 115/56 O2 Sat by Pulse 100 100 Oximetry 07/26/22 07/26/22 07/27/22 23:49 23:51 00:00 Temperature Pulse Rate 106 H 105 H 104 H Respiratory 25 H 22 Rate Blood Pressure 115/55 126/61 120/60 O2 Sat by Pulse 100 100 100 Oximetry 07/27/22 07/27/22 07/27/22 00:11 00:21 00:30 Temperature Pulse Rate 105 H 105 H 106 H Respiratory 23 21 25 H Rate Blood Pressure 120/60 120/62 122/63 O2 Sat by Pulse 100 100 Oximetry 07/27/22 07/27/22 07/27/22 00:41 00:51 01:00 Temperature Pulse Rate 105 H 102 H 103 H Respiratory 21 25 H 25 H Rate Blood Pressure 122/63 129/61 125/60 O2 Sat by Pulse 100 100 Oximetry 07/27/22 07/27/22 07/27/22 01:11 01:20 01:30 Temperature Pulse Rate 104 H 106 H 105 H Respiratory 25 H 23 23 Rate Blood Pressure 125/60 126/64 126/60 O2 Sat by Pulse 100 100 100 Oximetry 07/27/22 07/27/22 07/27/22 01:40 01:43 01:50 Temperature 98.9 F Pulse Rate 108 H 107 H Respiratory 16 25 H Rate Blood Pressure 126/60 118/59 O2 Sat by Pulse 100 100 Oximetry 07/27/22 07/27/22 07/27/22 02:00 02:11 02:21 Temperature Pulse Rate 109 H 107 H 107 H Respiratory 20 22 18 Rate Blood Pressure 115/62 115/62 124/62 O2 Sat by Pulse 100 100 Oximetry 07/27/22 07/27/22 07/27/22 02:30 02:41 02:51 Temperature Pulse Rate 106 H 110 H 107 H Respiratory 15 19 18 Rate Blood Pressure 126/61 126/61 129/63 O2 Sat by Pulse 100 100 Oximetry 07/27/22 07/27/22 07/27/22 03:00 03:10 03:16 Temperature Pulse Rate 111 H 109 H Respiratory 18 18 Rate Blood Pressure 119/64 119/64 O2 Sat by Pulse 100 100 100 Oximetry 07/27/22 07/27/22 07/27/22 03:20 03:30 03:41 Temperature Pulse Rate 108 H 106 H 104 H Respiratory 15 11 L 10 L Rate Blood Pressure 117/60 124/63 124/63 O2 Sat by Pulse 100 100 100 Oximetry 07/27/22 07/27/22 07/27/22 03:51 04:00 04:07 Temperature Pulse Rate 111 H 104 H 106 H Respiratory 16 24 Rate Blood Pressure 124/63 136/61 121/60 O2 Sat by Pulse 100 100 100 Oximetry 07/27/22 07/27/22 07/27/22 04:10 04:20 04:29 Temperature 98.5 F Pulse Rate 109 H 105 H Respiratory 24 16 Rate Blood Pressure 136/61 133/62 O2 Sat by Pulse 100 100 Oximetry 07/27/22 07/27/22 07/27/22 04:30 04:41 04:51 Temperature Pulse Rate 104 H 108 H 107 H Respiratory 12 25 H 25 H Rate Blood Pressure 130/65 130/65 130/65 O2 Sat by Pulse 100 100 100 Oximetry 07/27/22 07/27/22 07/27/22 05:00 05:10 05:20 Temperature Pulse Rate 101 H 104 H 106 H Respiratory 11 L 25 H 23 Rate Blood Pressure 132/70 132/70 136/66 O2 Sat by Pulse 100 100 100 Oximetry 07/27/22 07/27/22 07/27/22 05:30 05:41 05:51 Temperature Pulse Rate 106 H 106 H 104 H Respiratory 20 11 L 18 Rate Blood Pressure 131/66 131/66 131/66 O2 Sat by Pulse 100 100 100 Oximetry 07/27/22 07/27/22 07/27/22 06:00 07:03 08:11 Temperature 98.8 F Pulse Rate 105 H 105 H Respiratory 16 Rate Blood Pressure 139/68 139/68 O2 Sat by Pulse 100 100 Oximetry Constitutional: no acute distress, other (middle aged obese male with mildly increased respiratory effort at rest on MVS) Eyes: non-icteric ENT: oropharynx moist, other (ETT 24 cm AMANDA) Neck: supple, no lymphadenopathy, no JVD Effort: mildly labored Ascultation: Bilateral: diminished breath sounds, rhonchi (scant) Percussion: Bilateral: not dull Cardiovascular: regular rate and rhythm Gastrointestinal: normoactive bowel sounds, soft, non-tender, non-distended (protuberant) Integumentary: normal Extremities: no cyanosis, no edema, pulses normal, no ischemia or petechiae Neurologic: non-focal exam (grossly), pupils equal and round, CN II-XII normal Psychiatric: mood appropriate, affect normal CBC and BMP: 07/27/22 09:15 07/27/22 09:45 ABG, PT/INR, D-dimer: ABG ABG pH 7.329 pH Units (7.350-7.450) L 07/26/22 21:00 ABG pCO2 16.3 mm Hg 07/26/22 21:00 ABG pO2 258.5 mm Hg (80.0-90.0) H 07/26/22 21:00 ABG O2 Saturation 99.4 % (95.0-99.0) H 07/26/22 21:00 PT/INR, D-dimer PT 17.2 Sec. (12.2-14.9) H 07/26/22 08:11 INR 1.25 (0.87-1.13) H 07/26/22 08:11 Abnormal lab findings: Abnormal Labs 07/26/22 07/26/22 07/26/22 07:30 08:11 08:11 WBC 13.5 H Hct 45.7 H MCV 113 H MCHC 26 L RDW 16.5 H Lymph % (Auto) 11.2 L [place] % (Auto) 9.1 H [place] # (Auto) 1.2 H Seg Neutrophils % 79.4 H Seg Neutrophils # 10.7 H PT 17.2 H INR 1.25 H ABG pH ABG pO2 ABG HCO3 ABG O2 Saturation ABG Base Excess ABG Hemoglobin Sodium Potassium Chloride Carbon Dioxide BUN Creatinine Glucose POC Glucose > 600 H Lactic Acid Phosphorus Magnesium ALT Total Creatine Kinase Salicylates Acetaminophen 07/26/22 07/26/22 07/26/22 08:11 08:11 08:11 WBC Hct MCV MCHC RDW Lymph % (Auto) [place] % (Auto) [place] # (Auto) Seg Neutrophils % Seg Neutrophils # PT INR ABG pH ABG pO2 ABG HCO3 ABG O2 Saturation ABG Base Excess ABG Hemoglobin Sodium 136 L Potassium 7.6 H* Chloride 95.0 L Carbon Dioxide 2 L* BUN 33 H Creatinine 2.5 H Glucose 1037 H* POC Glucose Lactic Acid 4.00 H* Phosphorus Magnesium ALT 6 L Total Creatine Kinase 233 H Salicylates < 0.3 L Acetaminophen 07/26/22 07/26/22 07/26/22 08:11 08:11 08:48 WBC Hct MCV MCHC RDW Lymph % (Auto) [place] % (Auto) [place] # (Auto) Seg Neutrophils % Seg Neutrophils # PT INR ABG pH 6.863 L* ABG pO2 179.0 H ABG HCO3 1.5 L ABG O2 Saturation ABG Base Excess > -30.0 L ABG Hemoglobin 11.8 L Sodium Potassium Chloride Carbon Dioxide BUN Creatinine Glucose POC Glucose Lactic Acid Phosphorus Magnesium ALT Total Creatine Kinase 222 H Salicylates Acetaminophen 5.0 L 07/26/22 07/26/22 07/26/22 09:27 11:13 11:30 WBC Hct MCV MCHC RDW Lymph % (Auto) [place] % (Auto) [place] # (Auto) Seg Neutrophils % Seg Neutrophils # PT INR ABG pH ABG pO2 574.0 H ABG HCO3 5.6 L ABG O2 Saturation 99.6 H ABG Base Excess -28.7 L ABG Hemoglobin 12.0 L Sodium Potassium Chloride Carbon Dioxide BUN Creatinine Glucose POC Glucose > 600 H Lactic Acid Phosphorus 12.80 H Magnesium 2.80 H ALT Total Creatine Kinase Salicylates Acetaminophen 07/26/22 07/26/22 07/26/22 11:36 11:36 12:02 WBC Hct MCV MCHC RDW Lymph % (Auto) [place] % (Auto) [place] # (Auto) Seg Neutrophils % Seg Neutrophils # PT INR ABG pH ABG pO2 ABG HCO3 ABG O2 Saturation ABG Base Excess ABG Hemoglobin Sodium Potassium 7.0 H* Chloride Carbon Dioxide 4 L* BUN 35 H Creatinine 2.8 H Glucose 977 H* POC Glucose > 600 H Lactic Acid 3.30 H* Phosphorus Magnesium ALT Total Creatine Kinase Salicylates Acetaminophen 07/26/22 07/26/22 07/26/22 14:06 14:52 15:54 WBC Hct MCV MCHC RDW Lymph % (Auto) [place] % (Auto) [place] # (Auto) Seg Neutrophils % Seg Neutrophils # PT INR ABG pH ABG pO2 ABG HCO3 ABG O2 Saturation ABG Base Excess ABG Hemoglobin Sodium Potassium Chloride Carbon Dioxide BUN Creatinine Glucose POC Glucose > 600 H > 600 H 573 H Lactic Acid Phosphorus Magnesium ALT Total Creatine Kinase Salicylates Acetaminophen 07/26/22 07/26/22 07/26/22 16:55 16:55 17:11 WBC Hct MCV MCHC RDW Lymph % (Auto) [place] % (Auto) [place] # (Auto) Seg Neutrophils % Seg Neutrophils # PT INR ABG pH ABG pO2 ABG HCO3 ABG O2 Saturation ABG Base Excess ABG Hemoglobin Sodium 148 H Potassium Chloride 110.5 H Carbon Dioxide 6 L* BUN 35 H Creatinine 2.6 H Glucose 623 H* POC Glucose 538 H Lactic Acid 2.30 H* Phosphorus Magnesium ALT Total Creatine Kinase Salicylates Acetaminophen 07/26/22 07/26/22 07/26/22 17:54 19:04 20:02 WBC Hct MCV MCHC RDW Lymph % (Auto) [place] % (Auto) [place] # (Auto) Seg Neutrophils % Seg Neutrophils # PT INR ABG pH ABG pO2 ABG HCO3 ABG O2 Saturation ABG Base Excess ABG Hemoglobin Sodium Potassium Chloride Carbon Dioxide BUN Creatinine Glucose POC Glucose 538 H 471 H 486 H Lactic Acid Phosphorus Magnesium ALT Total Creatine Kinase Salicylates Acetaminophen 07/26/22 07/26/22 07/26/22 20:57 21:00 22:07 WBC Hct MCV MCHC RDW Lymph % (Auto) [place] % (Auto) [place] # (Auto) Seg Neutrophils % Seg Neutrophils # PT INR ABG pH 7.329 L ABG pO2 258.5 H ABG HCO3 8.4 L ABG O2 Saturation 99.4 H ABG Base Excess -15.1 L ABG Hemoglobin 12.1 L Sodium Potassium Chloride Carbon Dioxide BUN Creatinine Glucose POC Glucose 316 H 264 H Lactic Acid Phosphorus Magnesium ALT Total Creatine Kinase Salicylates Acetaminophen 07/26/22 07/27/22 23:01 00:55 WBC Hct MCV MCHC RDW Lymph % (Auto) [place] % (Auto) [place] # (Auto) Seg Neutrophils % Seg Neutrophils # PT INR ABG pH ABG pO2 ABG HCO3 ABG O2 Saturation ABG Base Excess ABG Hemoglobin Sodium 156 H D Potassium 3.0 L D Chloride 122.8 H Carbon Dioxide 17 L D BUN 31 H Creatinine 1.7 H Glucose 196 H POC Glucose 218 H Lactic Acid Phosphorus Magnesium ALT Total Creatine Kinase Salicylates Acetaminophen Chest x-ray: image reviewed (no acute process) Allied health notes reviewed: nursing
--- NOTE | 2022-07-27 09:15 | Consultation ---
History of Present Illness - Reason for Consult Consult date: 07/27/22 acute renal failure, hypernatremia, hyperkalemia - History of Present Illness The patient is a 57 YO male with history of Obesity, HTN, DM, HLD, CHF, Metabolic Syndrome and OA who presented to [facility] ED 07/26/22 with AMS. Patient is intubated and on ventilatory support at the time my evaluation is unable to provide history and there was no family member at the bedside. Patient was found unresponsive by his . In the ED patient was found to have a Merkel Coma Score of 7 upon arrival, in diabetic ketoacidosis complicated by acute hypoxemic respiratory failure, sepsis and acute kidney injury. Patient intubated urgently and placed on ventilatory support in the ED. Patient initiated on sepsis and DKA protocols. Patient admitted to ICU. Labs and imaging noted. Nephrology consulted for further evaluation and treatment of MICK. Past History Past Medical History: arthritis, diabetes, heart failure, hypertension, other (See HPI) Past Surgical History: Other (Reviewed) Social history: , lives with family Family history: diabetes, hypertension Medications and Allergies Allergies Allergy/AdvReac Type Severity Reaction Status Date / Time No Known Allergies Allergy Unverified 07/26/22 07:55 Home Medications Medication Instructions Recorded Confirmed Last Taken Type AtorvaSTATin [Lipitor] 10 mg PO QHS 07/26/22 07/26/22 Unknown History Entresto 49-51 mg 49 - 51 mg PO BID 07/26/22 07/26/22 Unknown History Insulin Aspart (Nf) [NovoLOG 0 units SQ ACHS 07/26/22 07/26/22 Unknown History Flexpen] Insulin Glargine,Hum.rec.anlog 35 unit SQ QHS 07/26/22 07/26/22 Unknown History [Lantus Solostar] Levothyroxine [Synthroid] 88 mcg PO DAILY 07/26/22 07/26/22 Unknown History Metoprolol Xl [Metoprolol 50 mg PO QDAY 07/26/22 07/26/22 Unknown History SUCCINATE ER TAB] Active Meds: Active Medications Acetaminophen (Acetaminophen 325 Mg Tab) 650 mg PO Q6H PRN PRN Reason: Pain, Mild (1-3) Famotidine (Famotidine 20 Mg/2 Ml Inj) 20 mg IV DAILY MALDONADO Fentanyl (Fentanyl 100 Mcg/2 Ml Inj) 50 mcg IV Q10MIN PRN PRN Reason: ANALGESIA Hydromorphone HCl (Hydromorphone 0.5 Mg/0.5 Ml Inj) 0.5 mg IV Q23H PRN PRN Reason: Pain , Severe (7-10) Hydromorphone HCl (Hydromorphone 0.5 Mg/0.5 Ml Inj) 0.25 mg IV Q4H PRN PRN Reason: Pain, Moderate (4-6) Hydrophilic Ointment (Lip Therapy Vaseline) 1 applic TP Q2HR PRN PRN Reason: Dry Lips Insulin Human Regular 100 (units/ Sodium Chloride) 100 mls @ 1 mls/hr IV TITR MALDONADO; Protocol Last Titration: 07/27/22 08:00 Dose: 4.5 units/hr, 4.5 mls/hr NORepinephrine/NS 8 MG-250 ML (Norepinephrine/Ns 8 Mg-250 Ml (Double Conc)) 8 mg in 250 mls @ 3.75 mls/hr IV TITRATE MALDONADO; Protocol Last Titration: 07/27/22 06:46 Dose: 0 mcg/min, 0 mls/hr Fentanyl Citrate (Fentanyl Drip Premix) 2,000 mcg in 100 mls @ 4.99 mls/hr IV TITR MALDONADO; Protocol Vancomycin HCl 1,500 mg/ (Sodium Chloride) 530 mls @ 333.333 mls/hr IV Q24H MALDONADO Vasopressin 20 unit/ Sodium (Chloride) 101 mls @ 9.09 mls/hr IV TITR MALDONADO; Protocol Sodium Bicarbonate 150 meq/ (Dextrose) 1,150 mls @ 100 mls/hr IV DIRECT MALDONADO Last Admin: 07/26/22 23:30 Dose: 100 mls/hr Ceftriaxone Sodium (Rocephin/Ns 2 Gm/100 Ml) 2 gm in 100 mls @ 200 mls/hr IV Q24H MALDONADO; Protocol Levothyroxine Sodium (Levothyroxine 100 Mcg Inj) 100 mcg IV DAILY@0600 [facility] Last Admin: 07/27/22 05:06 Dose: 100 mcg Multi-Ingred Cream/Lotion/Oil/Oint (Mineral Oil/Petrolatum, White Ophth Oint 3.5 Gm) 1 applic OU Q4HR PRN PRN Reason: Dry Eye(s) Ondansetron HCl (Ondansetron 4 Mg/2 Ml Inj) 4 mg IV Q4H PRN PRN Reason: Nausea And Vomiting Last Admin: 07/26/22 22:12 Dose: 4 mg Oxycodone/Acetaminophen (Oxycodone /Acetaminophen 5-325mg Tab) 1 tab PO Q16H PRN PRN Reason: Pain, Moderate (4-6) Potassium Chloride (Potassium Chloride 20 Meq Packet) 40 meq FEEDTUBE ONCE@0830 [facility] Stop: 07/27/22 12:30 Last Admin: 07/27/22 08:42 Dose: 40 meq Senna/Docusate Sodium (Sennosides/Docusate Sodium 8.6/50 Mg Tab) 1 tab FEEDTUBE BID [facility] Last Admin: 07/26/22 21:09 Dose: 1 tab Sodium Chloride (Sodium Chloride 0.9% 10 Ml Flush Syringe) 10 ml IV BID [facility] Last Admin: 07/26/22 21:09 Dose: 10 ml Sodium Chloride (Sodium Chloride 0.9% 10 Ml Flush Syringe) 10 ml IV PRN PRN PRN Reason: LINE FLUSH Review of Systems ROS unobtainable: due to endotracheal tube, due to mental status Exam - Vital Signs Vital signs: Vital Signs Pulse Resp Pulse Ox 100 H 24 100 07/26/22 10:10 07/26/22 10:10 07/26/22 10:10 Results - Lab Results 07/27/22 09:15 07/27/22 09:45 Most recent lab results ABG pH 7.329 pH Units (7.350-7.450) L 07/26/22 21:00 ABG pCO2 16.3 mm Hg 07/26/22 21:00 ABG pO2 258.5 mm Hg (80.0-90.0) H 07/26/22 21:00 ABG HCO3 8.4 mmol/L (20.0-26.0) L 07/26/22 21:00 ABG O2 Saturation 99.4 % (95.0-99.0) H 07/26/22 21:00 Calcium 8.4 mg/dL (8.4-10.2) 07/27/22 00:55 Phosphorus 12.80 mg/dL (2.5-4.5) H 07/26/22 09:27 Magnesium 2.80 mg/dL (1.7-2.3) H 07/26/22 09:27 Assessment and Plan 1. Acute kidney injury: Vasomotor MICK in the setting of DKA. Urine studies and Renal US ordered. Monitor renal function. Creatinine level improving. Avoid nephrotoxic agents. Meds dosage based on GFR. 2. FEN: Anion-gap metabolic acidosis, on Sod bicarb drip, improving, monitor. Hypernatremia, hypotonic IV fluids, monitor. Replete lytes appropriately. Monitor lytes and volume status. 3. DKA: Per protocol. 4. Acute hypoxic resp failure, POA: Intubated on MV. Followed by Pulmonary. 5. H/o Hypertension: Monitor BP. 6. H/o CHF: Echo with normal EF. Monitor. Subjective: Patient was seen and examined at the bedside. Nurse at the bedside. Examination: General appearance: well-developed, appears stated age, no distress, intubated, on vent HEENT: atraumatic Neck: trachea midline Respiratory: coarse breath sounds Heart: S1S2, regular, no murmur Abdomen: soft, bowel sounds heard, NT Integumentary: no obvious rash Neurologic: barely opens eyes Ext: no edema : hook catheter
[2022-07-27] MEDS: cefTRIAXone/NS 2 GM/100 ML 2 GM/100 ML BAG IV SCH (09:19)
[2022-07-27] MEDS: SENNOSIDES/DOCUSATE SODIUM 8.6/50 MG TAB FEEDTUBE SCH ×2 (09:19→21:02)
[2022-07-27] MEDS ORDERED: FAMOTIDINE 20 MG/2 ML INJ IV SCH ×2 (10:00→22:00)
[2022-07-27 10:05] LABS: Basophils % (Auto) 0.1 % (0.0-1.8); Hematocrit 33.9 % (35.5-45.6); Hemoglobin 11.6 gm/dl (11.8-15.2); Lymphocytes # (Auto) 0.7 K/mm3 (1.2-5.4); Lymphocytes % (Auto) 8.9 % (13.4-35.0); Mean Corpuscular HGB Conc 34 % (32-34); Mean Corpuscular Volume 89 fl (84-94); Monocytes # (Auto) 0.9 K/mm3 (0.0-0.8); Monocytes % (Auto) 12.9 % (0.0-7.3); Platelet Count 188 K/mm3 (140-440); Red Cell Distribution Width 14.1 % (13.2-15.2)
[2022-07-27 10:20] LABS: ABG Base Excess -2.6 mmol/L (-2.0-3.0); ABG HCO3 20.3 mmol/L (20.0-26.0); ABG Methemoglobin 0.5 % (0.0-1.5); ABG Oxygen Saturation 98.5 % (95.0-99.0); ABG PH 7.448 pH Units (7.350-7.450); ABG PO2 123.7 mm Hg (80.0-90.0)
[2022-07-27 10:24] LABS: C-Reactive Protein 13.7 mg/dL (0.00-1.30); Calcium 8.7 mg/dL (8.4-10.2)
--- NOTE | 2022-07-27 11:18 | Progress Note ---
<ROYAL REYNOSO - Last Filed: 07/27/22 16:22> Assessment and Plan Assessment and plan: This is a 57-year-old male with known past medical history of HTN, DM, HLD, CHF, OA, and obesity admitted for possible septic shock, DKA, MICK, and acute hypoxic respiratory failure requiring ventilatory support. Hospital Course to Date: 07/27: Remains on the vent, awake and following commands. Remains on DKA protocol and sodium bicabr gtt. Metabolic acidosis and leukocytosis improved. Hypothermia resolved, patient is off pressors this am, VSS. Cultures and Procal pending. Continue current empiric IV abx for now. 2D echo pending and cardiology is following. Elevated D-Dimer noted, BLE swelling noted, will check D-Dimer to r/o DVT. VTE heparin SubQ initiated. Renal function continue to improved, continue IVF resuscitation per DKA protocol. Nephrology is also following. Plan for PSV trial today per [facility] , plan for possible extubation tomorrow. Will transition patient to subQ insulin once anion gap is closed. Assessment and Plan #DKA (Diabetic Ketoacidosis) #Type 2 Diabetes Mellitus #Anion Gap Metabolic Acidosis - Presented with high BG, high anion gap, severe metabolic acidosis, +ketone in UA - On DKA protocol - [id number] pending - Anion gap still elevated this am - Continue insulin gtt and IVF resuscitation per protocol - Monitor and replace electrolytes as needed - Monitor anion gap, serial Labs ordered - Will transition patient to subQ insulin once anion gap is closed. #Acute Hypoxic Respiratory Failure - Was found unresponsive at home, probably due to DKA - was intubated by EMS in the field on 07/26 for airway protection - Initial CXR with mild pulmonary venous congestion, repeat CXR is unremarkable - COVID PCR negative - Vent setting: PRVC-30%,6,25,475 - AM ABG noted - CCM consulted, appreciate recommendations - VAP bundle addressed - Aspiration precaution HOB above 30 - Daily SBT trials as tolerated - Daily ABG and CXR - Continue SPO2 monitoring for SPO2 goal above 92% #Shock- Probable Septic Shock - Unknown source, probably reactive. R/o sepsis - Presented with severe metabolic acidosis, hypothermic, and hypotensive requiring pressors and bcarb gtt - Initial CXR with mild pulmonary venous congestion, repeat CXR is unremarkable - COVID PCR negative; UA +ketones-otherwise unremarkable; Sputum Culture and blood cultures pending - Temp and WBCs normalized, off pressors this am, and VSS - CRP and procal pending - Continue current empiric IV abx for now - Maintain adequate perfusion - Continue blood pressure monitor per protocol - Maintain MAP above 65 - F/U on cultures - Daily CBC monitor - Consider ID consult if febrile or/and if leukocytosis reoccur #H/o Congestive Heart Failure- Unknown EF #Cardiomegaly - Cardiology consulted, appreciate recommendations - 2D echo pending - Patient is off pressors this am, VSS - Patient is currently on DKA protocol - Strick I&Os and daily weight #Acute Metabolic Encephalopathy-improved - Probably secondary to DKA - Awake and following commands this am. Not on any sedation - Avoid benzodiazepine to reduce the possibility of delirium - Frequent reorientation - PRN Analgesia for CPOT greater than 3 - Maintenance of sleep-wake cycle #Acute kidney injury (MICK) with acute tubular necrosis (ATN) #Hypernatremia #Hypokalemia #Metabolic Acidosis - 2/2 DKA vs infectious process - Baseline renal function is unknown, presented with Scr. as high as 2.8 - On DKA protocol and sodium bcarb gtt - Renal function improved this am - Nephrology on consult, appreciated recommendation - Strict intake and output - Avoid nephrotoxic medications; Renally dose medications - Sheriff in place - Continue IVF hydration - Monitor and replace electrolytes as needed #Elevated D-Dimer - BLE doppler to r/o DVT - Heparin SubQ Q8hr #GI/DVT Prophylaxis - PPI- Pepcid - Heparin SubQ #Advance Care Planning - Disease education data, care plan, diagnoses, and prognosis were discussed wi th patient's via phone. Patient is a FULL code. Patient's acknowledged understanding and agreed with current care plan. The high probability of a clinically significant, sudden or life threatening deterioration of the [multiple] system(s) required my full and direct attention, intervention and personal management. The aggregate critical care time was [60] minutes. This time is in addition to time spent performing reported procedures but includes the following: [x] Data Review and interpretation [x] Patient assessment and monitoring of vital signs [x] Documentation [x] Medication orders and management Disposition Plan: ICU Total Time Spent with Patient (Minutes): 60 History Interval history: Patient seen and examined at the bedside. Intubated, not on any sedations. Awake and following simple commands. of pressors this am, VSS. Remains on insulin gtt per DKA protocol and sodium bcarb gtt is running. VON overnight Hospitalist Physical - Constitutional Vitals: Temp Pulse Resp BP Pulse Ox 98.2 F 111 H 25 H 129/65 100 07/27/22 08:00 07/27/22 10:00 07/27/22 10:00 07/27/22 10:00 07/27/22 10:00 General appearance: Present: no acute distress, well-nourished, obese, other (On the vent) - EENT Eyes: Present: PERRL ENT: hearing intact - Neck Neck: Present: normal ROM - Respiratory Respiratory effort: normal Respiratory: bilateral: rhonchi - Cardiovascular Rhythm: regular Heart Sounds: Present: S1 & S2 - Extremities Extremities: no ischemia, pulses intact, pulses symmetrical Extremity abnormal: edema - Peripheral Assessment Bilateral Lower Extremity Edema Type: Pitting Edema Degree: 2+ Capillary Refill: < 3 seconds Skin Temperature: Warm Generalized Edema Type: Non-pitting Edema Degree: 2+ Capillary Refill: < 3 seconds Skin Temperature: Warm Peripheral Pulses: within normal limits - Abdominal General gastrointestinal: soft, non-distended, normal bowel sounds - Integumentary Integumentary: Present: warm, dry - Psychiatric Psychiatric: appropriate mood/affect, cooperative, other (Intubated) - Neurologic Neurologic: moves all extremities, other (Intubated. Awake and following commands) - Allied Health Allied health notes reviewed: nursing, case management HEART Score - HEART Score Troponin: Troponin T 0.027 ng/mL (0.00-0.029) 07/26/22 08:11 Results - Labs CBC & Chem 7: 07/27/22 09:15 07/27/22 09:45 Labs: Laboratory Last Values WBC 7.4 K/mm3 (4.5-11.0) 07/27/22 09:15 RBC 3.80 M/mm3 (3.65-5.03) 07/27/22 09:15 Hgb 11.6 gm/dl (11.8-15.2) L 07/27/22 09:15 Hct 33.9 % (35.5-45.6) L D 07/27/22 09:15 MCV 89 fl (84-94) 07/27/22 09:15 MCH 30 pg (28-32) 07/27/22 09:15 MCHC 34 % (32-34) 07/27/22 09:15 RDW 14.1 % (13.2-15.2) 07/27/22 09:15 Plt Count 188 K/mm3 (140-440) 07/27/22 09:15 Lymph % (Auto) 8.9 % (13.4-35.0) L 07/27/22 09:15 [place] % (Auto) 12.9 % (0.0-7.3) H 07/27/22 09:15 Eos % (Auto) 0.0 % (0.0-4.3) 07/27/22 09:15 Baso % (Auto) 0.1 % (0.0-1.8) 07/27/22 09:15 Lymph # (Auto) 0.7 K/mm3 (1.2-5.4) L 07/27/22 09:15 [place] # (Auto) 0.9 K/mm3 (0.0-0.8) H 07/27/22 09:15 Eos # (Auto) 0.0 K/mm3 (0.0-0.4) 07/27/22 09:15 Baso # (Auto) 0.0 K/mm3 (0.0-0.1) 07/27/22 09:15 Seg Neutrophils % 78.1 % (40.0-70.0) H 07/27/22 09:15 Seg Neutrophils # 5.8 K/mm3 (1.8-7.7) 07/27/22 09:15 PT 17.2 Sec. (12.2-14.9) H 07/26/22 08:11 INR 1.25 (0.87-1.13) H 07/26/22 08:11 D-Dimer 1818.59 ng/mlDDU (0-234) H 07/27/22 09:45 ABG pH 7.448 pH Units (7.350-7.450) 07/27/22 09:00 ABG pCO2 30.0 mm Hg 07/27/22 09:00 ABG pO2 123.7 mm Hg (80.0-90.0) H 07/27/22 09:00 ABG HCO3 20.3 mmol/L (20.0-26.0) 07/27/22 09:00 ABG O2 Saturation 98.5 % (95.0-99.0) 07/27/22 09:00 ABG O2 Content 19.1 (0.0-44) 07/27/22 09:00 ABG Base Excess -2.6 mmol/L (-2.0-3.0) L 07/27/22 09:00 ABG Hemoglobin 13.9 gm/dl (14.0-18.0) L 07/27/22 09:00 ABG Carboxyhemoglobin 1.1 % (0.0-5.0) 07/27/22 09:00 ABG Methemoglobin 0.5 % (0.0-1.5) 07/27/22 09:00 Oxyhemoglobin 96.9 % (95.0-99.0) 07/27/22 09:00 FiO2 30 % 07/27/22 09:00 Sodium 157 mmol/L (137-145) H 07/27/22 09:45 Potassium 3.3 mmol/L (3.6-5.0) L 07/27/22 09:45 Chloride 122.9 mmol/L (98-107) H 07/27/22 09:45 Carbon Dioxide 23 mmol/L (22-30) 07/27/22 09:45 Anion Gap 14 mmol/L 07/27/22 09:45 BUN 28 mg/dL (9-20) H 07/27/22 09:45 Creatinine 1.6 mg/dL (0.8-1.3) H 07/27/22 09:45 Estimated GFR 55 ml/min 07/27/22 09:45 BUN/Creatinine Ratio 18 % 07/27/22 09:45 Glucose 109 mg/dL (75-100) H 07/27/22 09:45 POC Glucose 218 mg/dL (70-105) H 07/26/22 23:01 Ketones Quantitative Moderate (Negative) 07/26/22 08:11 Lactic Acid 1.60 mmol/L (0.7-2.0) 07/27/22 00:55 Calcium 8.7 mg/dL (8.4-10.2) 07/27/22 09:45 Phosphorus 1.30 mg/dL (2.5-4.5) L D 07/27/22 09:45 Magnesium 1.70 mg/dL (1.7-2.3) 07/27/22 09:45 Ferritin 533.6 ng/mL (30.0-300.0) H 07/27/22 09:45 Total Bilirubin 0.20 mg/dL (0.1-1.2) 07/26/22 08:11 AST 11 units/L (5-40) 07/26/22 08:11 ALT 6 units/L (7-56) L 07/26/22 08:11 Alkaline Phosphatase 111 units/L (35-129) 07/26/22 08:11 Lactate Dehydrogenase 220 units/L (91-180) H 07/27/22 09:45 Total Creatine Kinase 222 units/L (55-170) H 07/26/22 08:11 Total Creatine Kinase 233 units/L (55-170) H 07/26/22 08:11 Troponin T 0.027 ng/mL (0.00-0.029) 07/26/22 08:11 C-Reactive Protein 13.70 mg/dL (0.00-1.30) H 07/27/22 09:45 NT-Pro-B Natriuret Pep 545.3 pg/mL (0-900) 07/26/22 08:11 Total Protein 7.7 g/dL (6.3-8.2) 07/26/22 08:11 Albumin 4.1 g/dL (3.9-5) 07/26/22 08:11 Albumin/Globulin Ratio 1.1 % 07/26/22 08:11 Urine Color Straw (Yellow) 07/26/22 12:53 Urine Turbidity Clear (Clear) 07/26/22 12:53 Specific [place] (Man) 1.017 (1.003-1.030) 07/26/22 12:53 Ur Protein (Man) 1+ mg/dL (Negative) 07/26/22 12:53 Ur Ketones (Man) 3+ (Negative) 07/26/22 12:53 Ur Nitrite (Man) Negative (Negative) 07/26/22 12:53 Urine Bilirubin (Man) Negative (Negative) 07/26/22 12:53 Urine Ictotest Not Reportable 07/26/22 12:53 Leukocyte Esterase (Man) Negative (Negative) 07/26/22 12:53 Urine WBC (Auto) < 1.0 /HPF (0.0-6.0) 07/26/22 12:53 Urine RBC (Auto) 1.0 /HPF (0.0-6.0) 07/26/22 12:53 U Epithel Cells (Auto) < 1.0 /HPF (0-13.0) 07/26/22 12:53 Urine RBC (Manual) 3+ (Negative) 07/26/22 12:53 Salicylates < 0.3 mg/dL (2.8-20.0) L 07/26/22 08:11 Urine Opiates Screen Negative 07/26/22 12:53 Urine Methadone Screen Negative 07/26/22 12:53 Acetaminophen 5.0 ug/mL (10.0-30.0) L 07/26/22 08:11 Ur Barbiturates Screen Negative 07/26/22 12:53 Ur Phencyclidine Scrn Negative 07/26/22 12:53 Ur Amphetamines Screen Negative 07/26/22 12:53 U Benzodiazepines Scrn Negative 07/26/22 12:53 Urine Cocaine Screen Negative 07/26/22 12:53 U Marijuana (THC) Screen Negative 07/26/22 12:53 Drugs of Abuse Note Disclamer 07/26/22 12:53 Plasma/Serum Alcohol < 0.01 % (0-0.07) 07/26/22 08:11 SARS-CoV-2 (PCR) Negative (Negative) 07/27/22 09:45 Microbiology: Microbiology 07/26/22 15:07 Peripheral/Venous Blood Culture - Preliminary Culture in Progress 07/26/22 15:07 Peripheral/Venous Blood Culture - Preliminary Culture in Progress Sheriff/IV: Voiding Method Indwelling Catheter Active Medications - Current Medications Current Medications: Generic Name Dose Route Start Last Admin Trade Name Freq PRN Reason Stop Dose Admin Acetaminophen 650 mg 07/26/22 12:04 Acetaminophen 325 Mg Tab PO Q6H PRN Pain, Mild (1-3) Famotidine 20 mg 07/27/22 22:00 Famotidine 20 Mg/2 Ml Inj IV BID MALDONADO Fentanyl 50 mcg 07/26/22 16:11 Fentanyl 100 Mcg/2 Ml Inj IV Q10MIN PRN ANALGESIA Heparin Sodium (Porcine) 5,000 unit 07/27/22 14:00 Heparin 5,000 Unit/1 Ml Vial SUB-Q Q8HR MALDONADO Hydromorphone HCl 0.5 mg 07/26/22 11:59 Hydromorphone 0.5 Mg/0.5 Ml Inj IV Q23H PRN Pain , Severe (7-10) Hydromorphone HCl 0.25 mg 07/26/22 12:04 Hydromorphone 0.5 Mg/0.5 Ml Inj IV Q4H PRN Pain, Moderate (4-6) Hydrophilic Ointment 1 applic 07/26/22 16:11 Lip Therapy Vaseline TP Q2HR PRN Dry Lips Insulin Human Regular 100 100 mls @ 1 mls/hr 07/26/22 10:00 07/27/22 09:58 units/ Sodium Chloride IV 3.5 units/hr TITR MALDONADO 3.5 mls/hr Titration Protocol 1 UNITS/HR NORepinephrine/NS 8 MG-250 ML 8 mg in 250 mls @ 3.75 mls/hr 07/26/22 11:50 07/27/22 06:46 Norepinephrine/Ns 8 Mg-250 Ml (Double Conc) IV 0 mcg/min TITRATE MALDONADO 0 mls/hr Titration Protocol 2 MCG/MIN Fentanyl Citrate 2,000 mcg in 100 mls @ 4.99 mls/hr 07/26/22 17:00 Fentanyl Drip Premix IV TITR MALDONADO Protocol 1 MCG/KG/HR Vancomycin HCl 1,500 mg/ 530 mls @ 333.333 mls/hr 07/27/22 18:00 Sodium Chloride IV Q24H MALDONADO Vasopressin 20 unit/ Sodium 101 mls @ 9.09 mls/hr 07/26/22 19:00 Chloride IV TITR MALDONADO Protocol 0.03 UNITS/MIN Ceftriaxone Sodium 2 gm in 100 mls @ 200 mls/hr 07/27/22 10:00 07/27/22 09:19 Rocephin/Ns 2 Gm/100 Ml IV 200 mls/hr Q24H MALDONADO Administration Protocol Potassium Chloride/Dextrose/Sod Cl 20 meq in 1,000 mls @ 125 mls/hr 07/27/22 12:00 D5w/0.45% Nacl/Kcl 20 Meq IV DIRECT MALDONADO Magnesium Sulfate 2 gm in 50 mls @ 25 mls/hr 07/27/22 11:30 Magnesium Sulfate 2gm/50ml IV 07/27/22 15:30 ONCE@1130 MALDONADO Potassium Phosphate 30 mmol/ 510 mls @ 85 mls/hr 07/27/22 12:00 Sodium Chloride IV 07/27/22 18:00 ONCE@1200 MALDONADO Levothyroxine Sodium 100 mcg 07/27/22 06:00 07/27/22 05:06 Levothyroxine 100 Mcg Inj IV 100 mcg DAILY@0600 MALDONADO Administration Multi-Ingred Cream/Lotion/Oil/Oint 1 applic 07/26/22 16:11 Mineral Oil/Petrolatum, White Ophth Oint 3.5 Gm OU Q4HR PRN Dry Eye(s) Ondansetron HCl 4 mg 07/26/22 22:06 07/26/22 22:12 Ondansetron 4 Mg/2 Ml Inj IV 4 mg Q4H PRN Administration Nausea And Vomiting Oxycodone/Acetaminophen 1 tab 07/26/22 11:59 Oxycodone /Acetaminophen 5-325mg Tab PO Q16H PRN Pain, Moderate (4-6) Potassium Chloride 40 meq 07/27/22 08:30 07/27/22 08:42 Potassium Chloride 20 Meq Packet FEEDTUBE 07/27/22 12:30 40 meq ONCE@0830 MALDONADO Administration Senna/Docusate Sodium 1 tab 07/26/22 22:00 07/27/22 09:19 Sennosides/Docusate Sodium 8.6/50 Mg Tab FEEDTUBE 1 tab BID MALDONADO Administration Sodium Chloride 10 ml 07/26/22 22:00 07/27/22 09:20 Sodium Chloride 0.9% 10 Ml Flush Syringe IV 10 ml BID MALDONADO Administration Sodium Chloride 10 ml 07/26/22 11:59 Sodium Chloride 0.9% 10 Ml Flush Syringe IV PRN PRN LINE FLUSH Nutrition/Malnutrition Assess - Dietary Evaluation Nutrition/Malnutrition Findings: Nutrition Notes Start: 07/27/22 09:28 Freq: Status: Active Protocol: Document 07/27/22 09:28 ANGELLA (Rec: 07/27/22 10:13 ANGELLA [id number]) Nutrition Notes Need for Assessment generated from: MD Order Initial or Follow up Assessment Current Diagnosis Acute Kidney Injury,Coronary Artery Disease,Diabetes,Sepsis ,Hypertension,Respiratory Failure,Hyperlipidemia Other Pertinent Diagnosis Metabolic Acidosis, OHS, DKA, Metabolic Encephalopathy, Cardiorenal syndrom Current Diet NPO (07/26 12:02), TF - Vital AF 1.2 monica @ 75mL/hr from L Labs/Tests 07/27: Na 156 K 3.0 Cl 122.8 CO2 17 BUN 31 Cr 1.7 Glu 196 Pertinent Medications 07/27 KCl - 40mEq Insulin - 100 units Levothyroxine Medications Reviewed Height 6 ft Weight 113.7 kg [place] Body Weight (kg) 80.90 BMI 34.0 Weight change and time frame None provided at admission. Weight Status Obese Subjective/Other Information RD consult for write/manage TF assessment. Pt is currently NPO. Pt is on mechanical ventilation O2 @ 100% and missing teeth according to physical assessment history notes. I will prescribe tube feeding to provide pt with energy/ protein needs during LOS. Percent of energy/protein needs met: Prescribed TF - Vital AF 1.2 monica @ 75mL/hr - provides for energy/protein needs (2160 Kcal/135 g) during LOS, 100% Kcal / 100% AA Burn Absent Trauma Absent GI Symptoms None Food Allergy No Skin Integrity/Comment Assessment WNL Current % PO Other Minimum of two criteria No Fluid Accumulation N/A Reduced [employer] Strength N/A (non-severe) Protein-Calorie Malnutrition N\A #1 Nutrition Diagnosis Inadequate oral intake Etiology Mechanical Ventilation As Evidenced by Signs and Symptoms Current diet order NPO Is patient on ventilator? Yes Is Patient Ambulatory and/or Out of Bed No REE-([facility]-confined to bed) 2415.912 Kcal/Kg value to use for calculation 19 Approximate Energy Requirements Using 2160 kcal/Kg Calculation Used for Recommendations Kcal/kg Additional Notes 1.2-2.0g/kg AdjBW PRO - 116- 194g q day 1mL/kcal or per MD Nutrition Intervention Nutrition Support: Initiate TF - Vital AF 1.2 monica @ 75mL/hr Flush with 120mL water or per MD. Kcal 2,160 Protein (gm) 135 Carbohydrates (gm) 199 Fat (gm) 97 Fluid (mL) 1,460 Fiber (gm) 9 % RDI: 100% Kcal; 100% AA. Goal #1 Provide at least 75% of energy /protein needs through Enteral Feeding during LOS. Goal #2 Adjust the dietary intervention to better serve Pt's needs and clinical conditions during LOS. Follow-Up By: 07/29/22 Additional Comments Start monitoring tube feeding tolerance, ventilation status, and BM. <ROXANA ANDERSEN - Last Filed: 07/29/22 07:46> Assessment and Plan Assessment and plan: I saw and evaluated the patient. I agree with the findings and the plan of care as documented in the Nurse Practitioner's~note, with the following corrections and additions. Hospitalist Physical - Constitutional Vitals: Temp Pulse Resp BP Pulse Ox 97.1 F L 98 H 20 139/77 98 07/29/22 05:41 07/29/22 05:41 07/29/22 05:41 07/29/22 05:41 07/28/22 22:08 HEART Score - HEART Score Troponin: Troponin T 0.027 ng/mL (0.00-0.029) 07/26/22 08:11 Results - Labs CBC & Chem 7: 07/28/22 05:20 07/28/22 05:20 Labs: Laboratory Last Values WBC 7.5 K/mm3 (4.5-11.0) 07/28/22 05:20 RBC 3.82 M/mm3 (3.65-5.03) 07/28/22 05:20 Hgb 11.3 gm/dl (11.8-15.2) L 07/28/22 05:20 Hct 34.8 % (35.5-45.6) L 07/28/22 05:20 MCV 91 fl (84-94) 07/28/22 05:20 MCH 30 pg (28-32) 07/28/22 05:20 MCHC 33 % (32-34) 07/28/22 05:20 RDW 14.7 % (13.2-15.2) 07/28/22 05:20 Plt Count 177 K/mm3 (140-440) 07/28/22 05:20 Lymph % (Auto) 8.9 % (13.4-35.0) L 07/27/22 09:15 [place] % (Auto) 12.9 % (0.0-7.3) H 07/27/22 09:15 Eos % (Auto) 0.0 % (0.0-4.3) 07/27/22 09:15 Baso % (Auto) 0.1 % (0.0-1.8) 07/27/22 09:15 Lymph # (Auto) 0.7 K/mm3 (1.2-5.4) L 07/27/22 09:15 [place] # (Auto) 0.9 K/mm3 (0.0-0.8) H 07/27/22 09:15 Eos # (Auto) 0.0 K/mm3 (0.0-0.4) 07/27/22 09:15 Baso # (Auto) 0.0 K/mm3 (0.0-0.1) 07/27/22 09:15 Seg Neutrophils % 78.1 % (40.0-70.0) H 07/27/22 09:15 Seg Neutrophils # 5.8 K/mm3 (1.8-7.7) 07/27/22 09:15 PT 17.2 Sec. (12.2-14.9) H 07/26/22 08:11 INR 1.25 (0.87-1.13) H 07/26/22 08:11 D-Dimer 1818.59 ng/mlDDU (0-234) H 07/27/22 09:45 ABG pH 7.383 pH Units (7.350-7.450) 07/28/22 10:26 ABG pCO2 30.6 mm Hg 07/28/22 10:26 ABG pO2 130.8 mm Hg (80.0-90.0) H 07/28/22 10:26 ABG HCO3 17.8 mmol/L (20.0-26.0) L 07/28/22 10:26 ABG O2 Saturation 98.6 % (95.0-99.0) 07/28/22 10:26 ABG O2 Content 15.9 (0.0-44) 07/28/22 10:26 ABG Base Excess -6.2 mmol/L (-2.0-3.0) L 07/28/22 10:26 ABG Hemoglobin 11.5 gm/dl (14.0-18.0) L 07/28/22 10:26 ABG Carboxyhemoglobin 1.0 % (0.0-5.0) 07/28/22 10: ABG Methemoglobin 0.5 % (0.0-1.5) 07/28/22 10: Oxyhemoglobin 97.0 % (95.0-99.0) 07/28/22 10:26 FiO2 30 % 07/28/22 10:26 Sodium 154 mmol/L (137-145) H 07/28/22 05:20 Potassium 3.8 mmol/L (3.6-5.0) 07/28/22 05:20 Chloride 120.2 mmol/L (98-107) H 07/28/22 05:20 Carbon Dioxide 22 mmol/L (22-30) 07/28/22 05:20 Anion Gap 16 mmol/L 07/28/22 05:20 BUN 21 mg/dL (9-20) H 07/28/22 05:20 Creatinine 1.1 mg/dL (0.8-1.3) 07/28/22 05:20 Estimated GFR > 60 ml/min 07/28/22 05:20 BUN/Creatinine Ratio 19 % 07/28/22 05:20 Glucose 318 mg/dL (75-100) H 07/28/22 05:20 POC Glucose 342 mg/dL (70-105) H 07/28/22 21:25 Hemoglobin A1c 11.0 % (4-6) H 07/28/22 05:20 Ketones Quantitative Moderate (Negative) 07/26/22 08:11 Lactic Acid 1.60 mmol/L (0.7-2.0) 07/27/22 00:55 Calcium 8.2 mg/dL (8.4-10.2) L 07/28/22 05:20 Phosphorus 2.50 mg/dL (2.5-4.5) 07/28/22 05:20 Magnesium 2.10 mg/dL (1.7-2.3) 07/28/22 05:20 Ferritin 533.6 ng/mL (30.0-300.0) H 07/27/22 09:45 Total Bilirubin 0.20 mg/dL (0.1-1.2) 07/28/22 05:20 AST 12 units/L (5-40) 07/28/22 05:20 ALT < 5 units/L (7-56) L 07/28/22 05:20 Alkaline Phosphatase 79 units/L (35-129) 07/28/22 05:20 Lactate Dehydrogenase 220 units/L (91-180) H 07/27/22 09:45 Total Creatine Kinase 222 units/L (55-170) H 07/26/22 08:11 Total Creatine Kinase 233 units/L (55-170) H 07/26/22 08:11 Troponin T 0.027 ng/mL (0.00-0.029) 07/26/22 08:11 C-Reactive Protein 13.70 mg/dL (0.00-1.30) H 07/27/22 09:45 NT-Pro-B Natriuret Pep 545.3 pg/mL (0-900) 07/26/22 08:11 Total Protein 5.9 g/dL (6.3-8.2) L D 07/28/22 05:20 Albumin 2.9 g/dL (3.9-5) L 07/28/22 05:20 Albumin/Globulin Ratio 1.0 % 07/28/22 05:20 Procalcitonin 3.63 ng/mL (<0.15) 07/27/22 09:45 Urine Color Straw (Yellow) 07/26/22 12:53 Urine Turbidity Clear (Clear) 07/26/22 12:53 Specific [place] (Man) 1.017 (1.003-1.030) 07/26/22 12:53 Ur Protein (Man) 1+ mg/dL (Negative) 07/26/22 12:53 Ur Ketones (Man) 3+ (Negative) 07/26/22 12:53 Ur Nitrite (Man) Negative (Negative) 07/26/22 12:53 Urine Bilirubin (Man) Negative (Negative) 07/26/22 12:53 Urine Ictotest Not Reportable 07/26/22 12:53 Leukocyte Esterase (Man) Negative (Negative) 07/26/22 12:53 Urine WBC (Auto) < 1.0 /HPF (0.0-6.0) 07/26/22 12:53 Urine RBC (Auto) 1.0 /HPF (0.0-6.0) 07/26/22 12:53 U Epithel Cells (Auto) < 1.0 /HPF (0-13.0) 07/26/22 12:53 Urine RBC (Manual) 3+ (Negative) 07/26/22 12:53 Urine Creatinine 184.6 mg/dL (0.1-20.0) H 07/27/22 17:37 Urine Sodium 154 mmol/L 07/27/22 17:37 Salicylates < 0.3 mg/dL (2.8-20.0) L 07/26/22 08:11 Urine Opiates Screen Negative 07/26/22 12:53 Urine Methadone Screen Negative 07/26/22 12:53 Acetaminophen 5.0 ug/mL (10.0-30.0) L 07/26/22 08:11 Ur Barbiturates Screen Negative 07/26/22 12:53 Ur Phencyclidine Scrn Negative 07/26/22 12:53 Ur Amphetamines Screen Negative 07/26/22 12:53 U Benzodiazepines Scrn Negative 07/26/22 12:53 Urine Cocaine Screen Negative 07/26/22 12:53 U Marijuana (THC) Screen Negative 07/26/22 12:53 Drugs of Abuse Note Disclamer 07/26/22 12:53 Plasma/Serum Alcohol < 0.01 % (0-0.07) 07/26/22 08:11 SARS-CoV-2 (PCR) Negative (Negative) 07/27/22 09:45 Microbiology: Microbiology 07/26/22 15:07 Peripheral/Venous Blood Culture - Preliminary NO GROWTH AFTER 48 HOURS 07/26/22 15:07 Peripheral/Venous Blood Culture - Preliminary NO GROWTH AFTER 48 HOURS Sheriff/IV: Voiding Method Urinal Active Medications - Current Medications Current Medications: Generic Name Dose Route Start Last Admin Trade Name Freq PRN Reason Stop Dose Admin Acetaminophen 650 mg 07/26/22 12:04 Acetaminophen 325 Mg Tab PO Q6H PRN Pain, Mild (1-3) Atorvastatin Calcium 10 mg 07/28/22 22:00 07/28/22 21:38 Atorvastatin 10 Mg Tab PO 10 mg QHS MALDONADO Administration Dextrose 50 ml 07/27/22 18:25 Dextrose 50% In Water (25gm) 50 Ml Syringe IV Q30MIN PRN Hypoglycemia Protocol Famotidine 20 mg 07/28/22 22:00 07/28/22 21:38 Famotidine 20 Mg Tab PO 20 mg BID MALDONADO Administration Heparin Sodium (Porcine) 5,000 unit 07/27/22 14:00 07/29/22 05:34 Heparin 5,000 Unit/1 Ml Vial SUB-Q 5,000 unit Q8HR MALDONADO Administration Hydrophilic Ointment 1 applic 07/26/22 16:11 Lip Therapy Vaseline TP Q2HR PRN Dry Lips Ceftriaxone Sodium 2 gm in 100 mls @ 200 mls/hr 07/27/22 10:00 07/28/22 09:13 Rocephin/Ns 2 Gm/100 Ml IV 07/31/22 10:29 200 mls/hr Q24H MALDONADO Administration Protocol Insulin Glargine 25 units 07/28/22 22:00 07/28/22 22:27 Insulin Glargine 100 Units/Ml SUB-Q 25 units QHS MALDONADO Administration Insulin Human Lispro 0 unit 07/28/22 16:30 07/28/22 23:11 Insulin Lispro 100 Unit/Ml SUB-Q 6 unit ACHS MALDONADO Administration Protocol Levothyroxine Sodium 88 mcg 07/29/22 06:00 07/29/22 05:34 Levothyroxine 88 Mcg Tab PO 88 mcg DAILY@0600 MALDONADO Administration Multi-Ingred Cream/Lotion/Oil/Oint 1 applic 07/26/22 16:11 Mineral Oil/Petrolatum, White Ophth Oint 3.5 Gm OU Q4HR PRN Dry Eye(s) Ondansetron HCl 4 mg 07/26/22 22:06 07/29/22 02:29 Ondansetron 4 Mg/2 Ml Inj IV 4 mg Q4H PRN Administration Nausea And Vomiting Oxycodone/Acetaminophen 1 tab 07/26/22 11:59 Oxycodone /Acetaminophen 5-325mg Tab PO Q16H PRN Pain, Moderate (4-6) Senna/Docusate Sodium 1 tab 07/28/22 22:00 07/28/22 21:38 Sennosides/Docusate Sodium 8.6/50 Mg Tab PO 1 tab QHS MALDONADO Administration Sodium Chloride 10 ml 07/26/22 22:00 07/28/22 21:40 Sodium Chloride 0.9% 10 Ml Flush Syringe IV 10 ml BID MALDONADO Administration Sodium Chloride 10 ml 07/26/22 11:59 Sodium Chloride 0.9% 10 Ml Flush Syringe IV PRN PRN LINE FLUSH Nutrition/Malnutrition Assess - Dietary Evaluation Nutrition/Malnutrition Findings: Nutrition Notes Start: 07/27/22 09:28 Freq: Status: Active Protocol: Document 07/28/22 15:07 ANGELLA (Rec: 07/28/22 15:15 ANGELLA [id number]) Nutrition Notes Need for Assessment generated from: stitchdown thread laster Initial or Follow up Assessment Current Diagnosis Acute Kidney Injury,Diabetes, Sepsis,Hypertension, Respiratory Failure Other Pertinent Diagnosis CHF, OHS, DKA, Metabolic Encephalopathy, Metabolic acidosis, CardiorenalSyn Current Diet TF: Vital AF @ 75mL/hr Labs/Tests 07/28: Na 154 Cl 120.2 BUN 21 Glu 318 Pertinent Medications 07/28: Humalog 4U Other medications reviewed and are nutritionally unremarkable. 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 Integumentary system not WNL, no elaboration as to reason per physical assessment. Spoke with RN who noted that skin integrity is intact and WNL. TF up to 35mL/hr this AM until diet order changed to NPO per RN. Pt is currently on mechanical ventilation @ Saturation O2 100%. Plans for extubation today per RN. Percent of energy/protein needs met: Prescribed TF - Vital AF 1.2 monica @ 75mL/hr - provides for energy/protein needs (2160 Kcal/135 g) during LOS, 100% Kcal / 100% AA Burn Absent Trauma Absent GI Symptoms None Food Allergy Yes Skin Integrity/Comment WNL per RN Current % PO Other Minimum of two criteria No Fluid Accumulation N/A Reduced [employer] Strength N/A (non-severe) Protein-Calorie Malnutrition N\A #1 Diagnosis Progress(for reassessment Continues documentation) Is patient on ventilator? Yes Is Patient Ambulatory and/or Out of Bed No REE-([facility]-confined to bed) 2415.912 Kcal/Kg value to use for calculation 19 Approximate Energy Requirements Using 2160 kcal/Kg Calculation Used for Recommendations Kcal/kg Additional Notes 1.2-2.0g/kg AdjBW PRO - 116- 194g q day 1mL/kcal or per MD Nutrition Intervention Nutrition Support: Continue TF - Vital AF 1.2 monica @ 75mL/hr Flush with 120mL water or per MD. Kcal 2,160 Protein (gm) 135 Carbohydrates (gm) 199 Fat (gm) 97 Fluid (mL) 1,460 Fiber (gm) 9 % RDI: 100% Kcal; 100% AA Goal #1 Provide at least 75% of energy /protein needs through Enteral Feeding during LOS. Goal #2 Adjust the dietary intervention to better serve Pt's needs and clinical conditions during LOS. Follow-Up By: 08/03/22 Additional Comments Continue monitoring tube feeding tolerance, ventilation status, and BM.
[2022-07-27] MEDS ORDERED: MAGNESIUM SULFATE 2 GM/50 ML BAG IV SCH (11:30)
--- NOTE | 2022-07-27 11:34 | Consultation ---
History of Present Illness Consult date: 07/27/22 Requesting physician: ROXANA ANDERSEN Consult reason: shortness of breath History of present illness: 57-year-old male history of diabetes is from out of town was brought in by his for unresponsiveness. EMS arrived patient had respiratory failure. Patient was intubated for acute hypoxemia. Patient found to have DKA along with acute renal failure. And metabolic acidosis. Questionable history of CHF. Echocardiogram shows normal LV function with mild LVH without significant regurgitation. Patient is intubated unable to give further history and being treated for sepsis also. As per the chart review no recent history of fever chills is COVID-negative. Past History Past Medical History: arthritis, diabetes, heart failure, hypertension, other (See HPI) Past Surgical History: Other (Reviewed) Social history: , lives with family Family history: diabetes, hypertension Medications and Allergies Allergies Allergy/AdvReac Type Severity Reaction Status Date / Time No Known Allergies Allergy Unverified 07/26/22 07:55 Home Medications Medication Instructions Recorded Confirmed Last Taken Type AtorvaSTATin [Lipitor] 10 mg PO QHS 07/26/22 07/26/22 Unknown History Entresto 49-51 mg 49 - 51 mg PO BID 07/26/22 07/26/22 Unknown History Insulin Aspart (Nf) [NovoLOG 0 units SQ ACHS 07/26/22 07/26/22 Unknown History Flexpen] Insulin Glargine,Hum.rec.anlog 35 unit SQ QHS 07/26/22 07/26/22 Unknown History [Lantus Solostar] Levothyroxine [Synthroid] 88 mcg PO DAILY 07/26/22 07/26/22 Unknown History Metoprolol Xl [Metoprolol 50 mg PO QDAY 07/26/22 07/26/22 Unknown History SUCCINATE ER TAB] Active Meds: Active Medications Acetaminophen (Acetaminophen 325 Mg Tab) 650 mg PO Q6H PRN PRN Reason: Pain, Mild (1-3) Famotidine (Famotidine 20 Mg/2 Ml Inj) 20 mg IV BID MALDONADO Fentanyl (Fentanyl 100 Mcg/2 Ml Inj) 50 mcg IV Q10MIN PRN PRN Reason: ANALGESIA Heparin Sodium (Porcine) (Heparin 5,000 Unit/1 Ml Vial) 5,000 unit SUB-Q Q8HR MALDONADO Hydromorphone HCl (Hydromorphone 0.5 Mg/0.5 Ml Inj) 0.5 mg IV Q23H PRN PRN Reason: Pain , Severe (7-10) Hydromorphone HCl (Hydromorphone 0.5 Mg/0.5 Ml Inj) 0.25 mg IV Q4H PRN PRN Reason: Pain, Moderate (4-6) Hydrophilic Ointment (Lip Therapy Vaseline) 1 applic TP Q2HR PRN PRN Reason: Dry Lips Insulin Human Regular 100 (units/ Sodium Chloride) 100 mls @ 1 mls/hr IV TITR MALDONADO; Protocol Last Titration: 07/27/22 09:58 Dose: 3.5 units/hr, 3.5 mls/hr NORepinephrine/NS 8 MG-250 ML (Norepinephrine/Ns 8 Mg-250 Ml (Double Conc)) 8 mg in 250 mls @ 3.75 mls/hr IV TITRATE MALDONADO; Protocol Last Titration: 07/27/22 06:46 Dose: 0 mcg/min, 0 mls/hr Fentanyl Citrate (Fentanyl Drip Premix) 2,000 mcg in 100 mls @ 4.99 mls/hr IV TITR MALDONADO; Protocol Vancomycin HCl 1,500 mg/ (Sodium Chloride) 530 mls @ 333.333 mls/hr IV Q24H MALDONADO Vasopressin 20 unit/ Sodium (Chloride) 101 mls @ 9.09 mls/hr IV TITR MALDONADO; Pro tocol Ceftriaxone Sodium (Rocephin/Ns 2 Gm/100 Ml) 2 gm in 100 mls @ 200 mls/hr IV Q24H MALDONADO; Protocol Last Admin: 07/27/22 09:19 Dose: 200 mls/hr Potassium Chloride/Dextrose/Sod Cl (D5w/0.45% Nacl/Kcl 20 Meq) 20 meq in 1,000 mls @ 125 mls/hr IV DIRECT MALDONADO Magnesium Sulfate (Magnesium Sulfate 2gm/50ml) 2 gm in 50 mls @ 25 mls/hr IV ONCE@1130 MALDONADO Stop: 07/27/22 15:30 Potassium Phosphate 30 mmol/ (Sodium Chloride) 510 mls @ 85 mls/hr IV ONCE@1200 MALDONADO Stop: 07/27/22 18:00 Levothyroxine Sodium (Levothyroxine 100 Mcg Inj) 100 mcg IV DAILY@0600 [facility] Last Admin: 07/27/22 05:06 Dose: 100 mcg Multi-Ingred Cream/Lotion/Oil/Oint (Mineral Oil/Petrolatum, White Ophth Oint 3.5 Gm) 1 applic OU Q4HR PRN PRN Reason: Dry Eye(s) Ondansetron HCl (Ondansetron 4 Mg/2 Ml Inj) 4 mg IV Q4H PRN PRN Reason: Nausea And Vomiting Last Admin: 07/26/22 22:12 Dose: 4 mg Oxycodone/Acetaminophen (Oxycodone /Acetaminophen 5-325mg Tab) 1 tab PO Q16H PRN PRN Reason: Pain, Moderate (4-6) Potassium Chloride (Potassium Chloride 20 Meq Packet) 40 meq FEEDTUBE ONCE@0830 [facility] Stop: 07/27/22 12:30 Last Admin: 07/27/22 08:42 Dose: 40 meq Senna/Docusate Sodium (Sennosides/Docusate Sodium 8.6/50 Mg Tab) 1 tab FEEDTUBE BID [facility] Last Admin: 07/27/22 09:19 Dose: 1 tab Sodium Chloride (Sodium Chloride 0.9% 10 Ml Flush Syringe) 10 ml IV BID [facility] Last Admin: 07/27/22 09:20 Dose: 10 ml Sodium Chloride (Sodium Chloride 0.9% 10 Ml Flush Syringe) 10 ml IV PRN PRN PRN Reason: LINE FLUSH Review of Systems ROS unobtainable: due to endotracheal tube Physical Examination Vital Signs Pulse Resp Pulse Ox 100 H 24 100 07/26/22 10:10 07/26/22 10:10 07/26/22 10:10 General appearance: no acute distress HEENT: Positive: PERRL Neck: Positive: neck supple Cardiac: Positive: Reg Rate and Rhythm Lungs: Positive: clear to auscultation Neuro: Positive: Other (Sedated but arousable) Abdomen: Positive: Soft Male genitourinary: Positive: deferred Extremities: Present: normal. Absent: edema Results 07/27/22 09:15 07/27/22 09:45 Cardiac Enzymes 07/27/22 Range/Units 09:45 Lactate Dehydrogenase 220 H (91-180) units/L CBC 07/27/22 Range/Units 09:15 WBC 7.4 (4.5-11.0) K/mm3 RBC 3.80 (3.65-5.03) M/mm3 Hgb 11.6 L (11.8-15.2) gm/dl Hct 33.9 L D (35.5-45.6) % Plt Count 188 (140-440) K/mm3 Lymph # (Auto) 0.7 L (1.2-5.4) K/mm3 [place] # (Auto) 0.9 H (0.0-0.8) K/mm3 Eos # (Auto) 0.0 (0.0-0.4) K/mm3 Baso # (Auto) 0.0 (0.0-0.1) K/mm3 Comprehensive Metabolic Panel 07/26/22 07/26/22 07/27/22 Range/Units 11:36 16:55 00:55 Sodium 143 D 148 H 156 H D (137-145) mmol/L Potassium 7.0 H* 4.3 D 3.0 L D (3.6-5.0) mmol/L Chloride 101.3 110.5 H 122.8 H (98-107) mmol/L Carbon Dioxide 4 L* 6 L* 17 L D (22-30) mmol/L BUN 35 H 35 H 31 H (9-20) mg/dL Creatinine 2.8 H 2.6 H 1.7 H (0.8-1.3) mg/dL Glucose 977 H* 623 H* 196 H (75-100) mg/dL Calcium 9.0 8.4 8.4 (8.4-10.2) mg/dL 07/27/22 Range/Units 09:45 Sodium 157 H (137-145) mmol/L Potassium 3.3 L (3.6-5.0) mmol/L Chloride 122.9 H (98-107) mmol/L Carbon Dioxide 23 (22-30) mmol/L BUN 28 H (9-20) mg/dL Creatinine 1.6 H (0.8-1.3) mg/dL Glucose 109 H (75-100) mg/dL Calcium 8.7 (8.4-10.2) mg/dL - Imaging and Cardiology Echo: report reviewed (Normal LV function EF 55 to 60% normal RV size and function no significant regurgitation) EKG interpretations - Telemetry EKG Rhythm: Sinus Tachycardia (Sinus tachycardia nonspecific ST-T's) Assessment and Plan 57-year-old male with acute renal failure DKA acute respiratory failure intubated is arousable with altered mental status. Patient does take Entresto but has normal LV function. Hold Entresto. Continue IV fluids. Monitor kidney function. Treatment of DKA and sepsis by the primary team - Patient Problems (1) AMS (altered mental status) Current Visit: Yes Status: Acute (2) Acute hypoxemic respiratory failure Current Visit: Yes Status: Acute (3) Acute kidney injury (MICK) with acute tubular necrosis (ATN) Current Visit: Yes Status: Acute (4) DKA (diabetic ketoacidosis) Current Visit: Yes Status: Acute Qualifiers: Diabetes mellitus type: type 1 (5) Respiratory failure Current Visit: Yes Status: Acute (6) Septic shock Current Visit: Yes Status: Acute (7) Toxic metabolic encephalopathy Current Visit: Yes Status: Acute
[2022-07-27] MEDS ORDERED: POTASSIUM PHOSPHATE 30 MMOL in SODIUM CHLORIDE 0.9% 500 ML 500 ML IV SCH (12:00)
[2022-07-27] MEDS ORDERED: D5W/0.45% NACL/KCL 20 MEQ 20 MEQ/1,000 ML BAG IV SCH (12:00)
[2022-07-27] MEDS: HEPARIN 5,000 UNIT/1 ML VIAL SUB-Q SCH ×2 (13:47→21:02)
[2022-07-27 13:49] LABS: ABG Base Excess -1.8 mmol/L (-2.0-3.0); ABG HCO3 22.3 mmol/L (20.0-26.0); ABG Methemoglobin 0.5 % (0.0-1.5); ABG Oxygen Saturation 98.5 % (95.0-99.0); ABG PCO2 35.5 mm Hg; ABG PH 7.415 pH Units (7.350-7.450)
[2022-07-27 17:56] LABS: Creatinine,Urine 184.6 mg/dL (0.1-20.0)
[2022-07-27] MEDS ORDERED: VANCOMYCIN 1,500 MG in SODIUM CHLORIDE 0.9% 500 ML 500 ML IV SCH (18:00)
[2022-07-27 18:16] LABS: BUN/Creatinine Ratio 21; Blood Urea Nitrogen 25 mg/dL (9-20); Calcium 8.4 mg/dL (8.4-10.2); Hemolysis Index 2
[2022-07-27] MEDS ORDERED: DEXTROSE 50% IN WATER (25GM) 50 ML SYRINGE IV PRN (18:25)
[2022-07-27] MEDS: INSULIN LISPRO 100 UNIT/ML SUB-Q SCH ×2 (19:44→21:40)
[2022-07-27] MEDS: FREE WATER PO SCH ×2 (20:57→21:02)
[2022-07-27] MEDS: INSULIN GLARGINE 100 UNITS/ML SUB-Q SCH ×2 (21:13→21:37)
[2022-07-28] MEDS: INSULIN LISPRO 100 UNIT/ML SUB-Q SCH ×6 (02:02→23:11)
[2022-07-28] MEDS: FREE WATER PO SCH ×4 (02:02→14:26)
--- NOTE | 2022-07-28 03:19 | XRay Report ---
CHEST 1 VIEW INDICATION / CLINICAL INFORMATION: follow up respiratory failure STUDY TIME: 245 COMPARISON: 07/27/2022 FINDINGS: SUPPORT DEVICES: Stable HEART / MEDIASTINUM: Stable LUNGS / PLEURA: Right basilar atelectatic changes and minimal infiltrate appear improved. No pneumoth orax. ADDITIONAL FINDINGS: No significant additional findings. Signer Name: Alejandro Rodríguez MD Signed: 07/28/2022 3:15 AM Workstation Name: [id number]
[2022-07-28] MEDS: HEPARIN 5,000 UNIT/1 ML VIAL SUB-Q SCH ×3 (04:59→22:26)
[2022-07-28] MEDS: LEVOTHYROXINE 100 MCG INJ IV SCH (05:00)
[2022-07-28 05:31] LABS: Hematocrit 34.8 % (35.5-45.6); Hemoglobin 11.3 gm/dl (11.8-15.2); Mean Corpuscular HGB Conc 33 % (32-34); Mean Corpuscular Volume 91 fl (84-94); Platelet Count 177 K/mm3 (140-440); Red Blood Count 3.82 M/mm3 (3.65-5.03); Red Cell Distribution Width 14.7 % (13.2-15.2)
[2022-07-28 05:41] LABS: ABG Base Excess -4.6 mmol/L (-2.0-3.0); ABG HCO3 20.2 mmol/L (20.0-26.0); ABG Methemoglobin 0.5 % (0.0-1.5); ABG Oxygen Saturation 98.8 % (95.0-99.0); ABG PCO2 36.6 mm Hg; ABG PH 7.36 pH Units (7.350-7.450); ABG PO2 148.2 mm Hg (80.0-90.0)
[2022-07-28 06:15] LABS: Albumin 2.9 g/dL (3.9-5); BUN/Creatinine Ratio 19; Blood Urea Nitrogen 21 mg/dL (9-20); Calcium 8.2 mg/dL (8.4-10.2); Hemolysis Index 2
[2022-07-28 06:17] LABS: Alanine Aminotransferase < 5 units/L (7-56)
--- NOTE | 2022-07-28 07:51 | Progress Note ---
Assessment and Plan 1. Acute kidney injury: Vasomotor MICK in the setting of DKA. Urine studies and Renal US ordered. Monitor renal function. Creatinine level improving. Avoid nephrotoxic agents. Meds dosage based on GFR. 2. FEN: Anion-gap metabolic acidosis, on Sod bicarb drip, improved, monitor. Hypernatremia, hypotonic IV fluids, monitor. Replete lytes appropriately. Monitor lytes and volume status. 3. DKA: Per protocol. 4. Acute hypoxic resp failure, POA: Intubated on MV. Followed by Pulmonary. 5. H/o Hypertension: Monitor BP. 6. H/o CHF: Echo with normal EF. Monitor. Subjective: Patient was seen and examined at the bedside. Examination: General appearance: well-developed, appears stated age, no distress, intubated, on vent HEENT: atraumatic Neck: trachea midline Respiratory: coarse breath sounds Heart: S1S2, regular, no murmur Abdomen: soft, bowel sounds heard, NT Integumentary: no obvious rash Neurologic: lethargic, able to move extremities Ext: no edema : hook catheter Subjective Date of service: 07/28/22 Principal diagnosis: Acute hypoxemic respiratory failure; AMS; DKA; Sepsis; MICK; CHF; Obesity Objective - Vital Signs Vital signs: Vital Signs - 12hr 07/27/22 07/27/22 07/27/22 20:00 20:15 20:31 Temperature Pulse Rate 114 H 116 H 117 H Respiratory 16 15 16 Rate Blood Pressure 131/72 131/72 131/72 O2 Sat by Pulse 100 100 100 Oximetry 07/27/22 07/27/22 07/27/22 20:45 21:00 21:15 Temperature Pulse Rate 116 H 116 H 116 H Respiratory 17 18 19 Rate Blood Pressure 131/72 137/63 137/63 O2 Sat by Pulse 100 100 100 Oximetry 07/27/22 07/27/22 07/27/22 21:31 21:45 22:00 Temperature Pulse Rate 117 H 118 H 117 H Respiratory 16 16 17 Rate Blood Pressure 137/63 137/63 117/67 O2 Sat by Pulse 100 100 100 Oximetry 07/27/22 07/27/22 07/27/22 22:15 22:31 22:45 Temperature Pulse Rate 116 H 117 H 118 H Respiratory 17 15 15 Rate Blood Pressure 117/67 117/67 117/67 O2 Sat by Pulse 100 100 100 Oximetry 07/27/22 07/27/22 07/27/22 23:00 23:03 23:15 Temperature Pulse Rate 119 H 120 H 121 H Respiratory 16 16 15 Rate Blood Pressure 114/71 114/71 117/67 O2 Sat by Pulse 100 100 100 Oximetry 07/27/22 07/27/22 07/27/22 23:21 23:22 23:30 Temperature Pulse Rate 121 H 123 H Respiratory 16 Rate Blood Pressure 117/67 114/71 O2 Sat by Pulse 100 100 100 Oximetry 07/27/22 07/27/22 07/28/22 23:31 23:45 00:00 Temperature Pulse Rate 120 H 121 H 122 H Respiratory 14 15 17 Rate Blood Pressure 117/67 114/71 117/73 O2 Sat by Pulse 100 100 100 Oximetry 07/28/22 07/28/22 07/28/22 00:15 00:26 00:31 Temperature 98.8 F Pulse Rate 120 H 117 H Respiratory 17 15 Rate Blood Pressure 117/73 117/73 O2 Sat by Pulse 100 100 Oximetry 07/28/22 07/28/22 07/28/22 00:45 01:00 01:15 Temperature Pulse Rate 119 H 117 H 123 H Respiratory 14 19 14 Rate Blood Pressure 117/73 121/70 121/70 O2 Sat by Pulse 100 100 100 Oximetry 07/28/22 07/28/22 07/28/22 01:31 01:45 02:00 Temperature Pulse Rate 119 H 125 H 122 H Respiratory 16 17 16 Rate Blood Pressure 121/70 121/70 120/61 O2 Sat by Pulse 100 100 100 Oximetry 07/28/22 07/28/22 07/28/22 02:02 02:15 02:31 Temperature 99.1 F Pulse Rate 119 H 121 H Respiratory 16 17 Rate Blood Pressure 120/61 120/61 O2 Sat by Pulse 100 100 Oximetry 07/28/22 07/28/22 07/28/22 02:46 03:00 03:16 Temperature Pulse Rate 120 H 114 H 116 H Respiratory 14 16 17 Rate Blood Pressure 120/61 107/74 120/61 O2 Sat by Pulse 100 100 100 Oximetry 07/28/22 07/28/22 07/28/22 03:30 03:38 03:46 Temperature Pulse Rate 117 H 120 H 119 H Respiratory 15 18 Rate Blood Pressure 120/61 107/74 120/61 O2 Sat by Pulse 100 100 100 Oximetry 07/28/22 07/28/22 07/28/22 04:00 04:16 04:30 Temperature Pulse Rate 117 H 117 H 112 H Respiratory 21 15 11 L Rate Blood Pressure 115/75 115/75 115/75 O2 Sat by Pulse 100 100 100 Oximetry 07/28/22 07/28/22 07/28/22 04:44 04:46 05:00 Temperature 99 F Pulse Rate 115 H 114 H Respiratory 11 L 12 Rate Blood Pressure 115/75 115/75 O2 Sat by Pulse 100 100 Oximetry 07/28/22 07:09 Temperature 98.8 F Pulse Rate Respiratory Rate Blood Pressure O2 Sat by Pulse Oximetry - Lab 07/28/22 05:20 07/28/22 05:20 Most recent lab results ABG pH 7.360 pH Units (7.350-7.450) 07/28/22 05:05 ABG pCO2 36.6 mm Hg 07/28/22 05:05 ABG pO2 148.2 mm Hg (80.0-90.0) H 07/28/22 05:05 ABG HCO3 20.2 mmol/L (20.0-26.0) 07/28/22 05:05 ABG O2 Saturation 98.8 % (95.0-99.0) 07/28/22 05:05 Calcium 8.2 mg/dL (8.4-10.2) L 07/28/22 05:20 Phosphorus 2.50 mg/dL (2.5-4.5) 07/28/22 05:20 Magnesium 2.10 mg/dL (1.7-2.3) 07/28/22 05:20 Urine Creatinine 184.6 mg/dL (0.1-20.0) H 07/27/22 17:37 Urine Sodium 154 mmol/L 07/27/22 17:37 Medications & Allergies - Medications Allergies/Adverse Reactions: Allergies liraglutide [From Victoza] Allergy (Verified 07/28/22 08:26) Vomiting shellfish derived Allergy (Verified 07/28/22 08:25) Swelling Home Medications: Home Medications Medication Instructions Recorded Confirmed Last Taken Type AtorvaSTATin [Lipitor] 10 mg PO QHS 07/26/22 07/26/22 Unknown History Entresto 49-51 mg 49 - 51 mg PO BID 07/26/22 07/26/22 Unknown History Insulin Aspart (Nf) [NovoLOG 0 units SQ ACHS 07/26/22 07/26/22 Unknown History Flexpen] Insulin Glargine,Hum.rec.anlog 35 unit SQ QHS 07/26/22 07/26/22 Unknown History [Lantus Solostar] Levothyroxine [Synthroid] 88 mcg PO DAILY 07/26/22 07/26/22 Unknown History Metoprolol Xl [Metoprolol 50 mg PO QDAY 07/26/22 07/26/22 Unknown History SUCCINATE ER TAB] Active Medications: Generic Name Dose Route Start Last Admin Trade Name Freq PRN Reason Stop Dose Admin Acetaminophen 650 mg 07/26/22 12:04 Acetaminophen 325 Mg Tab PO Q6H PRN Pain, Mild (1-3) Dextrose 50 ml 07/27/22 18:25 Dextrose 50% In Water (25gm) 50 Ml Syringe IV Q30MIN PRN Hypoglycemia Protocol Famotidine 20 mg 07/27/22 22:00 07/27/22 21:02 Famotidine 20 Mg/2 Ml Inj IV 20 mg BID MALDONADO Administration Fentanyl 50 mcg 07/26/22 16:11 Fentanyl 100 Mcg/2 Ml Inj IV Q10MIN PRN ANALGESIA Heparin Sodium (Porcine) 5,000 unit 07/27/22 14:00 07/28/22 04:59 Heparin 5,000 Unit/1 Ml Vial SUB-Q 5,000 unit Q8HR MALDONADO Administration Hydrophilic Ointment 1 applic 07/26/22 16:11 Lip Therapy Vaseline TP Q2HR PRN Dry Lips NORepinephrine/NS 8 MG-250 ML 8 mg in 250 mls @ 3.75 mls/hr 07/26/22 11:50 07/27/22 06:46 Norepinephrine/Ns 8 Mg-250 Ml (Double Conc) IV 0 mcg/min TITRATE MALDONADO 0 mls/hr Titration Protocol 2 MCG/MIN Fentanyl Citrate 2,000 mcg in 100 mls @ 4.99 mls/hr 07/26/22 17:00 Fentanyl Drip Premix IV TITR MALDONADO Protocol 1 MCG/KG/HR Vancomycin HCl 1,500 mg/ 530 mls @ 333.333 mls/hr 07/27/22 18:00 07/27/22 18:19 Sodium Chloride IV 333.333 mls/hr Q24H MALDONADO Administration Vasopressin 20 unit/ Sodium 101 mls @ 9.09 mls/hr 07/26/22 19:00 Chloride IV TITR MALDONADO Protocol 0.03 UNITS/MIN Ceftriaxone Sodium 2 gm in 100 mls @ 200 mls/hr 07/27/22 10:00 07/27/22 09:19 Rocephin/Ns 2 Gm/100 Ml IV 200 mls/hr Q24H MALDONADO Administration Protocol Insulin Glargine 10 units 07/27/22 21:00 07/27/22 21:37 Insulin Glargine 100 Units/Ml SUB-Q 10 units QHS MALDONADO Administration Insulin Human Lispro 0 unit 07/27/22 20:00 07/28/22 06:10 Insulin Lispro 100 Unit/Ml SUB-Q 4 unit Q4HR MALDONADO Administration Protocol Levothyroxine Sodium 100 mcg 07/27/22 06:00 07/28/22 05:00 Levothyroxine 100 Mcg Inj IV 100 mcg DAILY@0600 MALDONADO Administration Multi-Ingred Cream/Lotion/Oil/Oint 1 applic 07/26/22 16:11 Mineral Oil/Petrolatum, White Ophth Oint 3.5 Gm OU Q4HR PRN Dry Eye(s) Ondansetron HCl 4 mg 07/26/22 22:06 07/26/22 22:12 Ondansetron 4 Mg/2 Ml Inj IV 4 mg Q4H PRN Administration Nausea And Vomiting Oxycodone/Acetaminophen 1 tab 07/26/22 11:59 Oxycodone /Acetaminophen 5-325mg Tab PO Q16H PRN Pain, Moderate (4-6) Senna/Docusate Sodium 1 tab 07/26/22 22:00 07/27/22 21:02 Sennosides/Docusate Sodium 8.6/50 Mg Tab FEEDTUBE 1 tab BID MALDONADO Administration Sodium Chloride 10 ml 07/26/22 22:00 07/27/22 21:02 Sodium Chloride 0.9% 10 Ml Flush Syringe IV 10 ml BID MALDONADO Administration Sodium Chloride 10 ml 07/26/22 11:59 Sodium Chloride 0.9% 10 Ml Flush Syringe IV PRN PRN LINE FLUSH
[2022-07-28] MEDS: cefTRIAXone/NS 2 GM/100 ML 2 GM/100 ML BAG IV SCH (09:13)
[2022-07-28] MEDS: SENNOSIDES/DOCUSATE SODIUM 8.6/50 MG TAB FEEDTUBE SCH (09:13)
--- NOTE | 2022-07-28 09:24 | Electrocardiograph Report ---
[facility] Test Date: 2022-07-27 Test Time: 11:10:09 Pat Name: JOVITA KNOX Department: Room: A255 1 Gender: M [employer] Deckhand: STEPHANIE : 1965 Requested By: CHIQUITA FARMER Order Number: [id number] Reading MD: Juan Gonzalez Measurements Intervals Pride Rate: 117 P: 66 [place]: 128 QRS: 25 QRSD: 74 T: 221 QT: 329 QTc: 458 Interpretive Statements Sinus tachycardia Nonspecific T abnormalities, diffuse leads No previous ECG available for comparison Electronically Signed On 07-28-2022 9:24:24 EDT by Juan Gonzalez
[2022-07-28] MEDS ORDERED: FAMOTIDINE 20 MG TAB FEEDTUBE SCH (10:00)
[2022-07-28 10:49] LABS: ABG Base Excess -6.2 mmol/L (-2.0-3.0); ABG HCO3 17.8 mmol/L (20.0-26.0); ABG Methemoglobin 0.5 % (0.0-1.5); ABG Oxygen Saturation 98.6 % (95.0-99.0); ABG PCO2 30.6 mm Hg; ABG PH 7.383 pH Units (7.350-7.450); ABG PO2 130.8 mm Hg (80.0-90.0)
--- NOTE | 2022-07-28 11:13 | Progress Note ---
Assessment and Plan Assessment and plan: This is a 57-year-old male with HTN, DM, HLD, CHF, OA, and obesity admitted for r/o septic shock, DKA, MICK, and acute hypoxic respiratory failure requiring ventilatory support. Neuro: Acute metabolic encephalopathy (resolving) -Reorientation as needed -Maintain sleep-wake cycle -As needed analgesia -CT head with no acute intracranial abnormality Cardiac: h/o HTN, CHF, HLD -Cardiology consulted, appreciate recommendations -Blood pressure monitoring per protocol -Resume home lipitor -Echocardiogram shows LVEF of 55 to 60%, Respiratory: Acute hypoxic respiratory failure -CCM consulted, appreciate recommendations -Intubated on 07/26 by EMS with 7.5 OETT at 22 at the lips -A.m. vent settings: PSV 08/27 -See RT notes for titration -Extubated 07/28 -A.m. ABG and CXR noted -VAP bundle -SPO2 monitoring GI: Moderate protein calorie malnutrition -24 hours -1080 mL -PPI -NTR consulted for tube feedings -BR: Senokot S : Acute kidney injury secondary to vasomotor nephropathy (improving), Hypernatremia -Nephrology consulted, appreciate recommendations -Strict intake and output -Renally dose medications -Avoid nephrotoxic medications -07/27 FeNa 0.65% suggestive of prerenal -Renal ultrasound pending -Trend BMP ID: r/o Sepsis, lactic acidosis (resolved) -Presented with severe metabolic acidosis, hypothermia, hypotension requiring vasopressor use and bicarbonate drip -Initial CXR showed mild pulmonary venous congestion -COVID-19 PCR negative -CRP 13.70 and procalcitonin 3.63 -Antibiotic therapy with cefepime and vancomycin -MRSA pending -f/u blood culture -Monitor WBC and temperature curve Endo: s/p DKA, h/o Type 2 DM, hypothyroidism -S/p insulin drip -Presented with hyperglycemia, high anion gap, severe metabolic acidosis, ketones in urinalysis -Hbg A1C 11 -SSI -Accu-Cheks q. every 6 -Long-acting insulin, titrate as needed -Resume home Synthroid -Avoid hypoglycemia Heme: Elevated D-dimer -D-dimer 1818 -Bilateral lower extremity Ultrasound pending -Trend CBC -Transfuse hemoglobin less than 7 -SCDs to BLE while in bed The high probability of a clinically significant, sudden or life threatening deterioration of the [multiple] system(s) required my full and direct attention, intervention and personal management. The aggregate critical care time was [60] minutes. This time is in addition to time spent performing reported procedures but includes the following: [x] Data Review and interpretation [x] Patient assessment and monitoring of vital signs [x] Documentation [x] Medication orders and management Disposition Plan: icu Total Time Spent with Patient (Minutes): 60 History Interval history: This is a 57 year old male with HTN, DM, HLD, CHF, metabolic syndrome, OHS and OA who presented to the emergency department via EMS after being found unresponsive by his . On arrival to the emergency department patient was GCS of 7, level consistent with DKA complicated by Acute respiratory failure, sepsis and acute kidney injury. Patient was intubated in the emergency depa rtment and initiated on sepsis and DKA protocol. Patient was noted to have acute kidney injury, leukocytosis, tachycardia and hypotension along with lactic acidosis. Hospital Course to Date: 07/27: Remains on the vent, awake and following commands. Remains on DKA protocol and sodium bicabr gtt. Metabolic acidosis and leukocytosis improved. Hypothermia resolved, patient is off pressors this am, VSS. Cultures and Procal pending. Continue current empiric IV abx for now. 2D echo pending and cardiology is following. Elevated D-Dimer noted, BLE swelling noted, will check D-Dimer to r/o DVT. VTE heparin SubQ initiated. Renal function continue to improved, continue IVF resuscitation per DKA protocol. Nephrology is also following. Plan for PSV trial today per [facility] , plan for possible extubation tomorrow. Will transition patient to subQ insulin once anion gap is closed. 07/28: This morning patient was placed on CPAP trial and he is tolerating that well, does follow commands. Increasing Lantus due to hypoglycemia, Lipitor and levothyroxine home dose started. MRSA pending. Vancomycin stopped. We will repeat procalcitonin and CRP. Patient was extubated today. RN to perform bedside swallow evaluation. Sheriff catheter and CVL to be removed today. Hospitalist Physical - Constitutional Vitals: Temp Pulse Resp BP Pulse Ox 98.8 F 112 H 9 L 129/75 100 07/28/22 08:00 07/28/22 09:00 07/28/22 09:00 07/28/22 09:00 07/28/22 09:00 General appearance: Present: no acute distress, well-nourished, obese, other (On the vent) - EENT Eyes: Present: PERRL, EOM intact ENT: hearing intact, clear oral mucosa - Neck Neck: Present: normal ROM - Respiratory Respiratory effort: normal Respiratory: bilateral: CTA, diminished - Cardiovascular Rhythm: regular Heart Sounds: Present: S1 & S2. Absent: systolic murmur, diastolic murmur - Extremities Extremities: no ischemia, pulses intact, pulses symmetrical, No edema, normal temperature, normal color Extremity abnormal: edema - Peripheral Assessment Right Lower Extremity Edema Type: Non-pitting Capillary Refill: < 3 seconds Skin Temperature: Warm Peripheral Pulses: within normal limits - Abdominal General gastrointestinal: soft, non-tender, non-distended, normal bowel sounds - Integumentary Integumentary: Present: warm, dry - Psychiatric Psychiatric: cooperative - Neurologic Neurologic: CNII-XII intact, no focal deficits, moves all extremities - Allied Health Allied health notes reviewed: nursing, RT, social work HEART Score - HEART Score Troponin: Troponin T 0.027 ng/mL (0.00-0.029) 07/26/22 08:11 Results - Labs CBC & Chem 7: 07/28/22 05:20 07/28/22 05:20 Labs: Laboratory Last Values WBC 7.5 K/mm3 (4.5-11.0) 07/28/22 05:20 RBC 3.82 M/mm3 (3.65-5.03) 07/28/22 05:20 Hgb 11.3 gm/dl (11.8-15.2) L 07/28/22 05:20 Hct 34.8 % (35.5-45.6) L 07/28/22 05:20 MCV 91 fl (84-94) 07/28/22 05:20 MCH 30 pg (28-32) 07/28/22 05:20 MCHC 33 % (32-34) 07/28/22 05:20 RDW 14.7 % (13.2-15.2) 07/28/22 05:20 Plt Count 177 K/mm3 (140-440) 07/28/22 05:20 Lymph % (Auto) 8.9 % (13.4-35.0) L 07/27/22 09:15 [place]ay % (Auto) 12.9 % (0.0-7.3) H 07/27/22 09:15 Eos % (Auto) 0.0 % (0.0-4.3) 07/27/22 09:15 Baso % (Auto) 0.1 % (0.0-1.8) 07/27/22 09:15 Lymph # (Auto) 0.7 K/mm3 (1.2-5.4) L 07/27/22 09:15 Quay # (Auto) 0.9 K/mm3 (0.0-0.8) H 07/27/22 09:15 Eos # (Auto) 0.0 K/mm3 (0.0-0.4) 07/27/22 09:15 Baso # (Auto) 0.0 K/mm3 (0.0-0.1) 07/27/22 09:15 Seg Neutrophils % 78.1 % (40.0-70.0) H 07/27/22 09:15 Seg Neutrophils # 5.8 K/mm3 (1.8-7.7) 07/27/22 09:15 PT 17.2 Sec. (12.2-14.9) H 07/26/22 08:11 INR 1.25 (0.87-1.13) H 07/26/22 08:11 D-Dimer 1818.59 ng/mlDDU (0-234) H 07/27/22 09:45 ABG pH 7.383 pH Units (7.350-7.450) 07/28/22 10:26 ABG pCO2 30.6 mm Hg 07/28/22 10:26 ABG pO2 130.8 mm Hg (80.0-90.0) H 07/28/22 10:26 ABG HCO3 17.8 mmol/L (20.0-26.0) L 07/28/22 10:26 ABG O2 Saturation 98.6 % (95.0-99.0) 07/28/22 10:26 ABG O2 Content 15.9 (0.0-44) 07/28/22 10:26 ABG Base Excess -6.2 mmol/L (-2.0-3.0) L 07/28/22 10:26 ABG Hemoglobin 11.5 gm/dl (14.0-18.0) L 07/28/22 10:26 ABG Carboxyhemoglobin 1.0 % (0.0-5.0) 07/28/22 10:26 ABG Methemoglobin 0.5 % (0.0-1.5) 07/28/22 10:26 Oxyhemoglobin 97.0 % (95.0-99.0) 07/28/22 10:26 FiO2 30 % 07/28/22 10:26 Sodium 154 mmol/L (137-145) H 07/28/22 05:20 Potassium 3.8 mmol/L (3.6-5.0) 07/28/22 05:20 Chloride 120.2 mmol/L (98-107) H 07/28/22 05:20 Carbon Dioxide 22 mmol/L (22-30) 07/28/22 05:20 Anion Gap 16 mmol/L 07/28/22 05:20 BUN 21 mg/dL (9-20) H 07/28/22 05:20 Creatinine 1.1 mg/dL (0.8-1.3) 07/28/22 05:20 Estimated GFR > 60 ml/min 07/28/22 05:20 BUN/Creatinine Ratio 19 % 07/28/22 05:20 Glucose 318 mg/dL (75-100) H 07/28/22 05:20 POC Glucose 297 mg/dL (70-105) H 07/28/22 07:58 Hemoglobin A1c 11.0 % (4-6) H 07/28/22 05:20 Ketones Quantitative Moderate (Negative) 07/26/22 08:11 Lactic Acid 1.60 mmol/L (0.7-2.0) 07/27/22 00:55 Calcium 8.2 mg/dL (8.4-10.2) L 07/28/22 05:20 Phosphorus 2.50 mg/dL (2.5-4.5) 07/28/22 05:20 Magnesium 2.10 mg/dL (1.7-2.3) 07/28/22 05:20 Ferritin 533.6 ng/mL (30.0-300.0) H 07/27/22 09:45 Total Bilirubin 0.20 mg/dL (0.1-1.2) 07/28/22 05:20 AST 12 units/L (5-40) 07/28/22 05:20 ALT < 5 units/L (7-56) L 07/28/22 05:20 Alkaline Phosphatase 79 units/L (35-129) 07/28/22 05:20 Lactate Dehydrogenase 220 units/L (91-180) H 07/27/22 09:45 Total Creatine Kinase 222 units/L (55-170) H 07/26/22 08:11 Total Creatine Kinase 233 units/L (55-170) H 07/26/22 08:11 Troponin T 0.027 ng/mL (0.00-0.029) 07/26/22 08:11 C-Reactive Protein 13.70 mg/dL (0.00-1.30) H 07/27/22 09:45 NT-Pro-B Natriuret Pep 545.3 pg/mL (0-900) 07/26/22 08:11 Total Protein 5.9 g/dL (6.3-8.2) L D 07/28/22 05:20 Albumin 2.9 g/dL (3.9-5) L 07/28/22 05:20 Albumin/Globulin Ratio 1.0 % 07/28/22 05:20 Procalcitonin 3.63 ng/mL (<0.15) 07/27/22 09:45 Urine Color Straw (Yellow) 07/26/22 12:53 Urine Turbidity Clear (Clear) 07/26/22 12:53 Specific [place] (Man) 1.017 (1.003-1.030) 07/26/22 12:53 Ur Protein (Man) 1+ mg/dL (Negative) 07/26/22 12:53 Ur Ketones (Man) 3+ (Negative) 07/26/22 12:53 Ur Nitrite (Man) Negative (Negative) 07/26/22 12:53 Urine Bilirubin (Man) Negative (Negative) 07/26/22 12:53 Urine Ictotest Not Reportable 07/26/22 12:53 Leukocyte Esterase (Man) Negative (Negative) 07/26/22 12:53 Urine WBC (Auto) < 1.0 /HPF (0.0-6.0) 07/26/22 12:53 Urine RBC (Auto) 1.0 /HPF (0.0-6.0) 07/26/22 12:53 U Epithel Cells (Auto) < 1.0 /HPF (0-13.0) 07/26/22 12:53 Urine RBC (Manual) 3+ (Negative) 07/26/22 12:53 Urine Creatinine 184.6 mg/dL (0.1-20.0) H 07/27/22 17:37 Urine Sodium 154 mmol/L 07/27/22 17:37 Salicylates < 0.3 mg/dL (2.8-20.0) L 07/26/22 08:11 Urine Opiates Screen Negative 07/26/22 12:53 Urine Methadone Screen Negative 07/26/22 12:53 Acetaminophen 5.0 ug/mL (10.0-30.0) L 07/26/22 08:11 Ur Barbiturates Screen Negative 07/26/22 12:53 Ur Phencyclidine Scrn Negative 07/26/22 12:53 Ur Amphetamines Screen Negative 07/26/22 12:53 U Benzodiazepines Scrn Negative 07/26/22 12:53 Urine Cocaine Screen Negative 07/26/22 12:53 U Marijuana (THC) Screen Negative 07/26/22 12:53 Drugs of Abuse Note Disclamer 07/26/22 12:53 Plasma/Serum Alcohol < 0.01 % (0-0.07) 07/26/22 08:11 SARS-CoV-2 (PCR) Negative (Negative) 07/27/22 09:45 Microbiology: Microbiology 07/26/22 15:07 Peripheral/Venous Blood Culture - Preliminary NO GROWTH AFTER 24 HOURS 07/26/22 15:07 Peripheral/Venous Blood Culture - Preliminary NO GROWTH AFTER 24 HOURS Sheriff/IV: Voiding Method Indwelling Catheter Active Medications - Current Medications Current Medications: Generic Name Dose Route Start Last Admin Trade Name Freq PRN Reason Stop Dose Admin Acetaminophen 650 mg 07/26/22 12:04 Acetaminophen 325 Mg Tab PO Q6H PRN Pain, Mild (1-3) Atorvastatin Calcium 10 mg 07/28/22 22:00 Atorvastatin 10 Mg Tab FEEDTUBE QHS MALDONADO Dextrose 50 ml 07/27/22 18:25 Dextrose 50% In Water (25gm) 50 Ml Syringe IV Q30MIN PRN Hypoglycemia Protocol Famotidine 20 mg 07/28/22 10:00 07/28/22 09:22 Famotidine 20 Mg Tab FEEDTUBE 20 mg BID MALDONADO Administration Fentanyl 50 mcg 07/26/22 16:11 Fentanyl 100 Mcg/2 Ml Inj IV Q10MIN PRN ANALGESIA Heparin Sodium (Porcine) 5,000 unit 07/27/22 14:00 07/28/22 04:59 Heparin 5,000 Unit/1 Ml Vial SUB-Q 5,000 unit Q8HR [facility] Administration Hydrophilic Ointment 1 applic 07/26/22 16:11 Lip Therapy Vaseline TP Q2HR PRN Dry Lips NORepinephrine/NS 8 MG-250 ML 8 mg in 250 mls @ 3.75 mls/hr 07/26/22 11:50 07/27/22 06:46 Norepinephrine/Ns 8 Mg-250 Ml (Double Conc) IV 0 mcg/min TITRATE MALDONADO 0 mls/hr Titration Protocol 2 MCG/MIN Fentanyl Citrate 2,000 mcg in 100 mls @ 4.99 mls/hr 07/26/22 17:00 Fentanyl Drip Premix IV TITR [facility] Protocol 1 MCG/KG/HR Vancomycin HCl 1,500 mg/ 530 mls @ 333.333 mls/hr 07/27/22 18:00 07/27/22 18:19 Sodium Chloride IV 333.333 mls/hr Q24H [facility] Administration Vasopressin 20 unit/ Sodium 101 mls @ 9.09 mls/hr 07/26/22 19:00 Chloride IV TITR [facility] Protocol 0.03 UNITS/MIN Ceftriaxone Sodium 2 gm in 100 mls @ 200 mls/hr 07/27/22 10:00 07/28/22 09:13 Rocephin/Ns 2 Gm/100 Ml IV 200 mls/hr Q24H [facility] Administration Protocol Insulin Glargine 15 units 07/28/22 22:00 Insulin Glargine 100 Units/Ml SUB-Q QHS [facility] Insulin Human Lispro 0 unit 07/27/22 20:00 07/28/22 09:13 Insulin Lispro 100 Unit/Ml SUB-Q 4 unit Q4HR [facility] Administration Protocol Levothyroxine Sodium 88 mcg 07/29/22 06:00 Levothyroxine 88 Mcg Tab FEEDTUBE DAILY@0600 [facility] Multi-Ingred Cream/Lotion/Oil/Oint 1 applic 07/26/22 16:11 Mineral Oil/Petrolatum, White Ophth Oint 3.5 Gm OU Q4HR PRN Dry Eye(s) Ondansetron HCl 4 mg 07/26/22 22:06 07/26/22 22:12 Ondansetron 4 Mg/2 Ml Inj IV 4 mg Q4H PRN Administration Nausea And Vomiting Oxycodone/Acetaminophen 1 tab 07/26/22 11:59 Oxycodone /Acetaminophen 5-325mg Tab PO Q16H PRN Pain, Moderate (4-6) Senna/Docusate Sodium 1 tab 07/26/22 22:00 07/28/22 09:13 Sennosides/Docusate Sodium 8.6/50 Mg Tab FEEDTUBE 1 tab BID MALDONADO Administration Sodium Chloride 10 ml 07/26/22 22:00 07/28/22 09:15 Sodium Chloride 0.9% 10 Ml Flush Syringe IV 10 ml BID MALDONADO Administration Sodium Chloride 10 ml 07/26/22 11:59 Sodium Chloride 0.9% 10 Ml Flush Syringe IV PRN PRN LINE FLUSH Nutrition/Malnutrition Assess - Dietary Evaluation Nutrition/Malnutrition Findings: Nutrition Notes Start: 07/27/22 09:28 Freq: Status: Active Protocol: Document 07/27/22 09:28 ANGELLA (Rec: 07/27/22 10:13 ANGELLA [id number]) Nutrition Notes Need for Assessment generated from: MD Order Initial or Follow up Assessment Current Diagnosis Acute Kidney Injury,Coronary Artery Disease,Diabetes,Sepsis ,Hypertension,Respiratory Failure,Hyperlipidemia Other Pertinent Diagnosis Metabolic Acidosis, OHS, DKA, Metabolic Encephalopathy, Cardiorenal syndrom Current Diet NPO (07/26 12:02), TF - Vital AF 1.2 monica @ 75mL/hr from L Labs/Tests 07/27: Na 156 K 3.0 Cl 122.8 CO2 17 BUN 31 Cr 1.7 Glu 196 Pertinent Medications 07/27 KCl - 40mEq Insulin - 100 units Levothyroxine Medications Reviewed Height 6 ft Weight 113.7 kg [place] Body Weight (kg) 80.90 BMI 34.0 Weight change and time frame None provided at admission. Weight Status Obese Subjective/Other Information RD consult for write/manage TF assessment. Pt is currently NPO. Pt is on mechanical ventilation O2 @ 100% and missing teeth according to physical assessment history notes. I will prescribe tube feeding to provide pt with energy/ protein needs during LOS. 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 Yes Is Patient Ambulatory and/or Out of Bed No REE-([facility]-confined to bed) 2415.912 Kcal/Kg value to use for calculation 19 Approximate Energy Requirements Using 2160 kcal/Kg Calculation Used for Recommendations Kcal/kg Additional Notes 1.2-2.0g/kg AdjBW PRO - 116- 194g q day 1mL/kcal or per MD Nutrition Intervention Nutrition Support: Initiate TF - Vital AF 1.2 monica @ 75mL/hr Flush with 120mL water or per MD. Kcal 2,160 Protein (gm) 135 Carbohydrates (gm) 199 Fat (gm) 97 Fluid (mL) 1,460 Fiber (gm) 9 % RDI: 100% Kcal; 100% AA. Goal #1 Provide at least 75% of energy /protein needs through Enteral Feeding during LOS. Goal #2 Adjust the dietary intervention to better serve Pt's needs and clinical conditions during LOS. Follow-Up By: 07/29/22 Additional Comments Start monitoring tube feeding tolerance, ventilation status, and BM.
--- NOTE | 2022-07-28 11:48 | Progress Note ---
Assessment and Plan 57-year-old male history of diabetes is from out of town was brought in by his for unresponsiveness. EMS arrived patient had respiratory failure. Patient was intubated for acute hypoxemia. Patient found to have DKA along with acute renal failure AMS Acute hypoxic respiratory failure MICK DKA Echo 07/26/2022-EF 55 to 60%. Posterior wall thickness is moderately increased. Septal thickness is moderately increased. Left ventricular diastolic function is indeterminate. Right ventricle systolic function is normal. Mild tricuspid regurgitation. No apparent pulmonary hypertension Plan: EKG shows sinus tach with nonspecific T abnormal Telemetry reviewed patient remains in sinus tach Continue to hold Entresto as patient does have normal LV function Management of sepsis and DKA per primary team Patient seen in conjunction with Dr. Gonzalez who agrees with this plan of care - Patient Problems (1) AMS (altered mental status) Current Visit: Yes Status: Acute (2) Acute hypoxemic respiratory failure Current Visit: Yes Status: Acute (3) Acute kidney injury (MICK) with acute tubular necrosis (ATN) Current Visit: Yes Status: Acute (4) DKA (diabetic ketoacidosis) Current Visit: Yes Status: Acute (5) Metabolic acidosis Current Visit: Yes Status: Acute (6) Septic shock Current Visit: Yes Status: Acute Subjective Date of service: 07/28/22 Principal diagnosis: Acute hypoxemic respiratory failure; AMS; DKA; Sepsis; MICK; CHF; Obesity Interval history: Patient patient remains intubated however patient alert Sinus tach 110s to 120s Objective Vital Signs Temp Pulse Pulse Resp BP Pulse Ox 07/28/22 11:45 99.0 F 07/28/22 11:41 114 H 10 L 135/79 100 07/28/22 11:16 118 H 12 135/79 100 07/28/22 11:00 119 H 11 L 135/79 100 07/28/22 10:46 120 H 11 L 122/75 100 07/28/22 10:30 121 H 11 L 122/75 100 07/28/22 10:16 117 H 8 L 122/75 100 07/28/22 10:00 117 H 8 L 122/75 07/28/22 09:46 113 H 10 L 129/75 100 07/28/22 09:30 112 H 11 L 129/75 100 07/28/22 09:16 113 H 11 L 129/75 100 07/28/22 09:00 112 H 9 L 129/75 100 07/28/22 08:46 117 H 11 L 114/75 100 07/28/22 08:30 118 H 9 L 114/75 100 07/28/22 08:16 118 H 13 131/74 100 07/28/22 08:11 118 H 10 L 131/74 100 07/28/22 08:07 112 H 131/74 100 07/28/22 08:00 98.8 F 118 H 112 H 22 131/74 100 07/28/22 07:46 115 H 16 114/75 100 07/28/22 07:30 114 H 14 114/75 100 07/28/22 07:16 112 H 22 114/75 100 07/28/22 07:09 98.8 F 07/28/22 07:00 110 H 19 114/75 100 07/28/22 06:46 111 H 20 125/69 100 07/28/22 06:30 115 H 25 H 125/69 100 07/28/22 06:16 114 H 15 125/69 100 07/28/22 06:00 115 H 16 131/74 100 07/28/22 05:46 113 H 14 131/74 100 07/28/22 05:30 115 H 16 131/74 100 07/28/22 05:16 122 H 14 131/74 100 07/28/22 05:00 114 H 12 115/75 100 07/28/22 04:46 115 H 11 L 115/75 100 07/28/22 04:44 99 F 07/28/22 04:30 112 H 11 L 115/75 100 07/28/22 04:16 117 H 15 115/75 100 07/28/22 04:00 117 H 21 115/75 100 07/28/22 03:46 119 H 18 120/61 100 07/28/22 03:38 120 H 107/74 100 07/28/22 03:30 117 H 15 120/61 100 07/28/22 03:16 116 H 17 120/61 100 07/28/22 03:00 114 H 16 107/74 100 07/28/22 02:46 120 H 14 120/61 100 07/28/22 02:31 121 H 17 120/61 100 07/28/22 02:15 119 H 16 120/61 100 07/28/22 02:02 99.1 F 09/06/22 02:00 122 H 16 120/61 100 07/28/22 01:45 125 H 17 121/70 100 07/28/22 01:31 119 H 16 121/70 100 07/28/22 01:15 123 H 14 121/70 100 07/28/22 01:00 117 H 19 121/70 100 07/28/22 00:45 119 H 14 117/73 100 07/28/22 00:31 117 H 15 117/73 100 07/28/22 00:26 98.8 F 07/28/22 00:15 120 H 17 117/73 100 07/28/22 00:00 122 H 17 117/73 07/27/22 23:45 121 H 15 114/71 07/27/22 23:31 120 H 14 117/67 07/27/22 23:30 123 H 114/71 07/27/22 23:22 07/27/22 23:21 121 H 16 117/67 07/27/22 23:15 121 H 15 117/67 07/27/22 23:03 120 H 16 114/71 07/27/22 23:00 119 H 16 114/71 07/27/22 22:45 118 H 15 117/67 07/27/22 22:31 117 H 15 117/67 07/27/22 22:15 116 H 17 117/67 07/27/22 22:00 117 H 17 117/67 07/27/22 21:45 118 H 16 137/63 07/27/22 21:31 117 H 16 137/63 07/27/22 21:15 116 H 19 137/63 07/27/22 21:00 116 H 18 137/63 07/27/22 20:45 116 H 17 131/72 07/27/22 20:31 117 H 16 131/72 07/27/22 20:15 116 H 15 131/72 07/27/22 20:00 114 H 16 131/72 07/27/22 19:51 98.6 F 07/27/22 19:45 119 H 16 138/68 07/27/22 19:41 100 07/27/22 19:31 113 H 14 138/68 07/27/22 19:23 111 H 138/68 07/27/22 19:15 110 H 13 138/68 07/27/22 19:00 111 H 17 138/68 07/27/22 18:45 116 H 14 122/67 07/27/22 18:31 113 H 22 123/64 07/27/22 18:15 116 H 19 123/64 07/27/22 18:00 115 H 25 H 123/64 07/27/22 17:45 116 H 20 124/67 07/27/22 17:31 112 H 13 124/67 07/27/22 17:15 109 H 22 124/67 07/27/22 17:00 111 H 17 122/67 07/27/22 16:46 98.1 F 07/27/22 16:45 112 H 15 124/67 07/27/22 16:31 109 H 15 124/67 07/27/22 16:15 111 H 20 124/67 07/27/22 16:00 111 H 109 H 20 124/67 07/27/22 15:45 112 H 23 137/67 07/27/22 15:31 114 H 11 L 137/67 07/27/22 15:17 113 H 148/73 07/27/22 15:15 113 H 12 148/73 07/27/22 15:12 112 H 18 139/67 07/27/22 14:46 121 H 13 148/73 07/27/22 14:30 148/73 07/27/22 14:16 108 H 14 148/73 07/27/22 14:00 107 H 15 131/73 07/27/22 13:46 111 H 14 131/73 07/27/22 13:30 110 H 16 131/73 07/27/22 13:16 109 H 14 131/73 07/27/22 13:00 112 H 14 146/73 07/27/22 12:46 115 H 14 146/73 07/27/22 12:30 123 H 20 146/73 07/27/22 12:27 111 H 129/65 07/27/22 12:16 107 H 12 146/73 07/27/22 12:00 98.6 F 108 H 113 H 15 139/67 100 - Physical Examination General: No Apparent Distress HEENT: Positive: PERRL Neck: Positive: neck supple Cardiac: Positive: Regular Rhythm, Tachycardia Lungs: Positive: Ventilated Respirations Neuro: Positive: Other (Sedated but arousable) Abdomen: Positive: Soft Extremities: Present: normal. Absent: edema - Labs and Meds Cardiac Enzymes 07/28/22 Range/Units 05:20 AST 12 (5-40) units/L CBC 07/28/22 Range/Units 05:20 WBC 7.5 (4.5-11.0) K/mm3 RBC 3.82 (3.65-5.03) M/mm3 Hgb 11.3 L (11.8-15.2) gm/dl Hct 34.8 L (35.5-45.6) % Plt Count 177 (140-440) K/mm3 Comprehensive Metabolic Panel 07/27/22 07/28/22 Range/Units 17:25 05:20 Sodium 155 H 154 H (137-145) mmol/L Potassium 3.6 3.8 (3.6-5.0) mmol/L Chloride 120.6 H 120.2 H (98-107) mmol/L Carbon Dioxide 23 22 (22-30) mmol/L BUN 25 H 21 H (9-20) mg/dL Creatinine 1.2 1.1 (0.8-1.3) mg/dL Glucose 124 H 318 H (75-100) mg/dL Calcium 8.4 8.2 L (8.4-10.2) mg/dL AST 12 (5-40) units/L ALT < 5 L (7-56) units/L Alkaline Phosphatase 79 (35-129) units/L Total Protein 5.9 L D (6.3-8.2) g/dL Albumin 2.9 L (3.9-5) g/dL - Imaging and Cardiology Echo: report reviewed (Normal LV function EF 55 to 60% normal RV size and function no significant regurgitation) - Telemetry EKG Rhythm: Sinus Tachycardia - EKG Sinus rhythms and dysrhythmias: sinus tachycardia - Allied health notes Allied health notes reviewed: nursing
--- NOTE | 2022-07-28 12:31 | Progress Note ---
Assessment and Plan Acute hypoxemic respiratory failure on MVS Acute toxic metabolic encephalopathy Diabetic ketoacidosis Sepsis unspecified Acute kidney injury H/O CHF Leukocytosis Lactic acidosis Hyperkalemia - extubate - prn BIPAP - continue care as below otherwise for now; - continue to wean supplemental oxygen for target O2 sat's > 90% acutely - continue Daily SAT and SBT assessment as tolerated - VAP bundle addressed - continue lung protective strategies - continue bronchodilators with pulmonary hygiene per RT - wean per pulmonary driven protocols otherwise - avoid nephrotoxins, renally dose all medications - continue accuchecks with glycemic control per SSI (While critically ill target blood glucose of 140-180 mg/dL; avoid hypoglycemia) - sedation prn for target RASS 0 to -1 - continue to avoid benzodiazepine's, reduce the possibility of delirium - complete empiric CAP AB's - prn analgesia per CPOT score - Maintenance of sleep-wake cycle, avoid delirium - continue enteral nutritional support at goal rate as tolerated - G.I. & VTE prophylaxis - PT/OT/ROM exercises - continue mobility protocols for pressure ulcer prophylaxis - Monitor hemodynamics closely - continue other care per attending / other consultants - discharge planning ongoing concurrently COVID SPECIFIC INTERVENTIONS - COVID-19 PCR negative .... Re-evaluate in am & prn CONDITION: CRITICAL PROGNOSIS: GUARDED CODE STATUS: FULL CODE The high probability of a clinically significant, sudden or life-threatening deterioration of the [respiratory, cardiovascular, renal & neurologic] system(s) required my full and direct attention, intervention and personal management. The aggregate critical care time was [32] minutes without overlap. Time includes spent on; [x] Data Review and interpretation [x] Patient assessment and monitoring of vital signs [x] Documentation [x] Medication orders and management Subjective Date of service: 07/28/22 Principal diagnosis: Acute hypoxemic respiratory failure; AMS; DKA; Sepsis; MICK; CHF; Obesity Interval history: Patient is seen today for: Acute hypoxemic respiratory failure on MVS; AMS; DKA; Sepsis; MICK; H/O CHF; Lactic acidosis; Obesity Seen and examined at bedside; 24hour events reviewed; nursing and respiratory care staff consulted; no adverse overnight events reported to me; resting peacefully in bed; remains on MVS but tolerating SBT very well; ABG looks good on PSV 10/6; denies acute chest pains or palpitations; afebrile; denies N/V/F/C; off IV insulin Objective Vital Signs - 12hr 07/28/22 07/28/22 07/28/22 00:31 00:45 01:00 Temperature Pulse Rate 117 H 119 H 117 H Pulse Rate [ From Monitor] Respiratory 15 14 19 Rate Blood Pressure 117/73 117/73 121/70 O2 Sat by Pulse 100 100 100 Oximetry 07/28/22 07/28/22 07/28/22 01:15 01:31 01:45 Temperature Pulse Rate 123 H 119 H 125 H Pulse Rate [ From Monitor] Respiratory 14 16 17 Rate Blood Pressure 121/70 121/70 121/70 O2 Sat by Pulse 100 100 100 Oximetry 07/28/22 07/28/22 07/28/22 02:00 02:02 02:15 Temperature 99.1 F Pulse Rate 122 H 119 H Pulse Rate [ From Monitor] Respiratory 16 16 Rate Blood Pressure 120/61 120/61 O2 Sat by Pulse 100 100 Oximetry 07/28/22 07/28/22 07/28/22 02:31 02:46 03:00 Temperature Pulse Rate 121 H 120 H 114 H Pulse Rate [ From Monitor] Respiratory 17 14 16 Rate Blood Pressure 120/61 120/61 107/74 O2 Sat by Pulse 100 100 100 Oximetry 07/28/22 07/28/22 07/28/22 03:16 03:30 03:38 Temperature Pulse Rate 116 H 117 H 120 H Pulse Rate [ From Monitor] Respiratory 17 15 Rate Blood Pressure 120/61 120/61 107/74 O2 Sat by Pulse 100 100 100 Oximetry 07/28/22 07/28/22 07/28/22 03:46 04:00 04:16 Temperature Pulse Rate 119 H 117 H 117 H Pulse Rate [ From Monitor] Respiratory 18 21 15 Rate Blood Pressure 120/61 115/75 115/75 O2 Sat by Pulse 100 100 100 Oximetry 07/28/22 07/28/22 07/28/22 04:30 04:44 04:46 Temperature 99 F Pulse Rate 112 H 115 H Pulse Rate [ From Monitor] Respiratory 11 L 11 L Rate Blood Pressure 115/75 115/75 O2 Sat by Pulse 100 100 Oximetry 07/28/22 07/28/22 07/28/22 05:00 05:16 05:30 Temperature Pulse Rate 114 H 122 H 115 H Pulse Rate [ From Monitor] Respiratory 12 14 16 Rate Blood Pressure 115/75 131/74 131/74 O2 Sat by Pulse 100 100 100 Oximetry 07/28/22 07/28/22 07/28/22 05:46 06:00 06:16 Temperature Pulse Rate 113 H 115 H 114 H Pulse Rate [ From Monitor] Respiratory 14 16 15 Rate Blood Pressure 131/74 131/74 125/69 O2 Sat by Pulse 100 100 100 Oximetry 07/28/22 07/28/22 07/28/22 06:30 06:46 07:00 Temperature Pulse Rate 115 H 111 H 110 H Pulse Rate [ From Monitor] Respiratory 25 H 20 19 Rate Blood Pressure 125/69 125/69 114/75 O2 Sat by Pulse 100 100 100 Oximetry 07/28/22 07/28/22 07/28/22 07:09 07:16 07:30 Temperature 98.8 F Pulse Rate 112 H 114 H Pulse Rate [ From Monitor] Respiratory 22 14 Rate Blood Pressure 114/75 114/75 O2 Sat by Pulse 100 100 Oximetry 07/28/22 07/28/22 07/28/22 07:46 08:00 08:07 Temperature 98.8 F Pulse Rate 115 H 118 H 112 H Pulse Rate [ 112 H From Monitor] Respiratory 16 22 Rate Blood Pressure 114/75 131/74 131/74 O2 Sat by Pulse 100 100 100 Oximetry 07/28/22 07/28/22 07/28/22 08:11 08:16 08:30 Temperature Pulse Rate 118 H 118 H 118 H Pulse Rate [ From Monitor] Respiratory 10 L 13 9 L Rate Blood Pressure 131/74 131/74 114/75 O2 Sat by Pulse 100 100 100 Oximetry 07/28/22 07/28/22 07/28/22 08:46 09:00 09:16 Temperature Pulse Rate 117 H 112 H 113 H Pulse Rate [ From Monitor] Respiratory 11 L 9 L 11 L Rate Blood Pressure 114/75 129/75 129/75 O2 Sat by Pulse 100 100 100 Oximetry 07/28/22 07/28/22 07/28/22 09:30 09:46 10:00 Temperature Pulse Rate 112 H 113 H 117 H Pulse Rate [ From Monitor] Respiratory 11 L 10 L 8 L Rate Blood Pressure 129/75 129/75 122/75 O2 Sat by Pulse 100 100 Oximetry 07/28/22 07/28/22 07/28/22 10:16 10:30 10:46 Temperature Pulse Rate 117 H 121 H 120 H Pulse Rate [ From Monitor] Respiratory 8 L 11 L 11 L Rate Blood Pressure 122/75 122/75 122/75 O2 Sat by Pulse 100 100 100 Oximetry 07/28/22 07/28/22 07/28/22 11:00 11:16 11:41 Temperature Pulse Rate 119 H 118 H 114 H Pulse Rate [ From Monitor] Respiratory 11 L 12 10 L Rate Blood Pressure 135/79 135/79 135/79 O2 Sat by Pulse 100 100 100 Oximetry 07/28/22 11:45 Temperature 99.0 F Pulse Rate Pulse Rate [ From Monitor] Respiratory Rate Blood Pressure O2 Sat by Pulse Oximetry Constitutional: no acute distress, other (middle aged obese male with normal respiratory effort at rest on MVS) Eyes: non-icteric ENT: oropharynx moist, other (ETT 24 cm AMANDA) Neck: supple, no lymphadenopathy, no JVD Effort: mildly labored Ascultation: Bilateral: clear, diminished breath sounds Percussion: Bilateral: not dull Cardiovascular: regular rate and rhythm Gastrointestinal: normoactive bowel sounds, soft, non-tender, non-distended (protuberant) Integumentary: normal Extremities: no cyanosis, no edema, pulses normal, no ischemia or petechiae Neurologic: non-focal exam (grossly), pupils equal and round, CN II-XII normal, motor strength normal and Psychiatric: mood appropriate, affect normal CBC and BMP: 07/28/22 05:20 07/28/22 05:20 ABG, PT/INR, D-dimer: ABG ABG pH 7.383 pH Units (7.350-7.450) 07/28/22 10:26 ABG pCO2 30.6 mm Hg 07/28/22 10:26 ABG pO2 130.8 mm Hg (80.0-90.0) H 07/28/22 10:26 ABG O2 Saturation 98.6 % (95.0-99.0) 07/28/22 10:26 PT/INR, D-dimer PT 17.2 Sec. (12.2-14.9) H 07/26/22 08:11 INR 1.25 (0.87-1.13) H 07/26/22 08:11 D-Dimer 1818.59 ng/mlDDU (0-234) H 07/27/22 09:45 Abnormal lab findings: Abnormal Labs 07/26/22 07/26/22 07/26/22 07:30 08:11 08:11 WBC 13.5 H Hgb Hct 45.7 H MCV 113 H MCHC 26 L RDW 16.5 H Lymph % (Auto) 11.2 L [place] % (Auto) 9.1 H Lymph # (Auto) [place] # (Auto) 1.2 H Seg Neutrophils % 79.4 H Seg Neutrophils # 10.7 H PT 17.2 H INR 1.25 H D-Dimer ABG pH ABG pO2 ABG HCO3 ABG O2 Saturation ABG Base Excess ABG Hemoglobin Sodium Potassium Chloride Carbon Dioxide BUN Creatinine Glucose POC Glucose > 600 H Hemoglobin A1c Lactic Acid Calcium Phosphorus Magnesium Ferritin ALT Lactate Dehydrogenase Total Creatine Kinase C-Reactive Protein Total Protein Albumin Urine Creatinine Salicylates Acetaminophen 07/26/22 07/26/22 07/26/22 08:11 08:11 08:11 WBC Hgb Hct MCV MCHC RDW Lymph % (Auto) [place] % (Auto) Lymph # (Auto) [place] # (Auto) Seg Neutrophils % Seg Neutrophils # PT INR D-Dimer ABG pH ABG pO2 ABG HCO3 ABG O2 Saturation ABG Base Excess ABG Hemoglobin Sodium 136 L Potassium 7.6 H* Chloride 95.0 L Carbon Dioxide 2 L* BUN 33 H Creatinine 2.5 H Glucose 1037 H* POC Glucose Hemoglobin A1c Lactic Acid 4.00 H* Calcium Phosphorus Magnesium Ferritin ALT 6 L Lactate Dehydrogenase Total Creatine Kinase 233 H C-Reactive Protein Total Protein Albumin Urine Creatinine Salicylates < 0.3 L Acetaminophen 07/26/22 07/26/22 07/26/22 08:11 08:11 08:48 WBC Hgb Hct MCV MCHC RDW Lymph % (Auto) [place] % (Auto) Lymph # (Auto) [place] # (Auto) Seg Neutrophils % Seg Neutrophils # PT INR D-Dimer ABG pH 6.863 L* ABG pO2 179.0 H ABG HCO3 1.5 L ABG O2 Saturation ABG Base Excess > -30.0 L ABG Hemoglobin 11.8 L Sodium Potassium Chloride Carbon Dioxide BUN Creatinine Glucose POC Glucose Hemoglobin A1c Lactic Acid Calcium Phosphorus Magnesium Ferritin ALT Lactate Dehydrogenase Total Creatine Kinase 222 H C-Reactive Protein Total Protein Albumin Urine Creatinine Salicylates Acetaminophen 5.0 L 07/26/22 07/26/22 07/26/22 09:27 11:13 11:30 WBC Hgb Hct MCV MCHC RDW Lymph % (Auto) [place] % (Auto) Lymph # (Auto) [place] # (Auto) Seg Neutrophils % Seg Neutrophils # PT INR D-Dimer ABG pH ABG pO2 574.0 H ABG HCO3 5.6 L ABG O2 Saturation 99.6 H ABG Base Excess -28.7 L ABG Hemoglobin 12.0 L Sodium Potassium Chloride Carbon Dioxide BUN Creatinine Glucose POC Glucose > 600 H Hemoglobin A1c Lactic Acid Calcium Phosphorus 12.80 H Magnesium 2.80 H Ferritin ALT Lactate Dehydrogenase Total Creatine Kinase C-Reactive Protein Total Protein Albumin Urine Creatinine Salicylates Acetaminophen 07/26/22 07/26/22 07/26/22 11:36 11:36 12:02 WBC Hgb Hct MCV MCHC RDW Lymph % (Auto) [place] % (Auto) Lymph # (Auto) [place] # (Auto) Seg Neutrophils % Seg Neutrophils # PT INR D-Dimer ABG pH ABG pO2 ABG HCO3 ABG O2 Saturation ABG Base Excess ABG Hemoglobin Sodium Potassium 7.0 H* Chloride Carbon Dioxide 4 L* BUN 35 H Creatinine 2.8 H Glucose 977 H* POC Glucose > 600 H Hemoglobin A1c Lactic Acid 3.30 H* Calcium Phosphorus Magnesium Ferritin ALT Lactate Dehydrogenase Total Creatine Kinase C-Reactive Protein Total Protein Albumin Urine Creatinine Salicylates Acetaminophen 07/26/22 07/26/22 07/26/22 14:06 14:52 15:54 WBC Hgb Hct MCV MCHC RDW Lymph % (Auto) [place] % (Auto) Lymph # (Auto) [place] # (Auto) Seg Neutrophils % Seg Neutrophils # PT INR D-Dimer ABG pH ABG pO2 ABG HCO3 ABG O2 Saturation ABG Base Excess ABG Hemoglobin Sodium Potassium Chloride Carbon Dioxide BUN Creatinine Glucose POC Glucose > 600 H > 600 H 573 H Hemoglobin A1c Lactic Acid Calcium Phosphorus Magnesium Ferritin ALT Lactate Dehydrogenase Total Creatine Kinase C-Reactive Protein Total Protein Albumin Urine Creatinine Salicylates Acetaminophen 07/26/22 07/26/22 07/26/22 16:55 16:55 17:11 WBC Hgb Hct MCV MCHC RDW Lymph % (Auto) [place] % (Auto) Lymph # (Auto) [place] # (Auto) Seg Neutrophils % Seg Neutrophils # PT INR D-Dimer ABG pH ABG pO2 ABG HCO3 ABG O2 Saturation ABG Base Excess ABG Hemoglobin Sodium 148 H Potassium Chloride 110.5 H Carbon Dioxide 6 L* BUN 35 H Creatinine 2.6 H Glucose 623 H* POC Glucose 538 H Hemoglobin A1c Lactic Acid 2.30 H* Calcium Phosphorus Magnesium Ferritin ALT Lactate Dehydrogenase Total Creatine Kinase C-Reactive Protein Total Protein Albumin Urine Creatinine Salicylates Acetaminophen 07/26/22 07/26/22 07/26/22 17:54 19:04 20:02 WBC Hgb Hct MCV MCHC RDW Lymph % (Auto) [place] % (Auto) Lymph # (Auto) [place] # (Auto) Seg Neutrophils % Seg Neutrophils # PT INR D-Dimer ABG pH ABG pO2 ABG HCO3 ABG O2 Saturation ABG Base Excess ABG Hemoglobin Sodium Potassium Chloride Carbon Dioxide BUN Creatinine Glucose POC Glucose 538 H 471 H 486 H Hemoglobin A1c Lactic Acid Calcium Phosphorus Magnesium Ferritin ALT Lactate Dehydrogenase Total Creatine Kinase C-Reactive Protein Total Protein Albumin Urine Creatinine Salicylates Acetaminophen 07/26/22 07/26/22 07/26/22 20:57 21:00 22:07 WBC Hgb Hct MCV MCHC RDW Lymph % (Auto) [place] % (Auto) Lymph # (Auto) [place] # (Auto) Seg Neutrophils % Seg Neutrophils # PT INR D-Dimer ABG pH 7.329 L ABG pO2 258.5 H ABG HCO3 8.4 L ABG O2 Saturation 99.4 H ABG Base Excess -15.1 L ABG Hemoglobin 12.1 L Sodium Potassium Chloride Carbon Dioxide BUN Creatinine Glucose POC Glucose 316 H 264 H Hemoglobin A1c Lactic Acid Calcium Phosphorus Magnesium Ferritin ALT Lactate Dehydrogenase Total Creatine Kinase C-Reactive Protein Total Protein Albumin Urine Creatinine Salicylates Acetaminophen 07/26/22 07/27/22 07/27/22 23:01 00:06 00:55 WBC Hgb Hct MCV MCHC RDW Lymph % (Auto) [place] % (Auto) Lymph # (Auto) [place] # (Auto) Seg Neutrophils % Seg Neutrophils # PT INR D-Dimer ABG pH ABG pO2 ABG HCO3 ABG O2 Saturation ABG Base Excess ABG Hemoglobin Sodium 156 H D Potassium 3.0 L D Chloride 122.8 H Carbon Dioxide 17 L D BUN 31 H Creatinine 1.7 H Glucose 196 H POC Glucose 218 H 181 H Hemoglobin A1c Lactic Acid Calcium Phosphorus Magnesium Ferritin ALT Lactate Dehydrogenase Total Creatine Kinase C-Reactive Protein Total Protein Albumin Urine Creatinine Salicylates Acetaminophen 07/27/22 07/27/22 07/27/22 01:00 02:00 03:02 WBC Hgb Hct MCV MCHC RDW Lymph % (Auto) [place] % (Auto) Lymph # (Auto) [place] # (Auto) Seg Neutrophils % Seg Neutrophils # PT INR D-Dimer ABG pH ABG pO2 ABG HCO3 ABG O2 Saturation ABG Base Excess ABG Hemoglobin Sodium Potassium Chloride Carbon Dioxide BUN Creatinine Glucose POC Glucose 173 H 156 H 140 H Hemoglobin A1c Lactic Acid Calcium Phosphorus Magnesium Ferritin ALT Lactate Dehydrogenase Total Creatine Kinase C-Reactive Protein Total Protein Albumin Urine Creatinine Salicylates Acetaminophen 07/27/22 07/27/22 07/27/22 03:59 05:02 06:03 WBC Hgb Hct MCV MCHC RDW Lymph % (Auto) [place] % (Auto) Lymph # (Auto) [place] # (Auto) Seg Neutrophils % Seg Neutrophils # PT INR D-Dimer ABG pH ABG pO2 ABG HCO3 ABG O2 Saturation ABG Base Excess ABG Hemoglobin Sodium Potassium Chloride Carbon Dioxide BUN Creatinine Glucose POC Glucose 133 H 117 H 111 H Hemoglobin A1c Lactic Acid Calcium Phosphorus Magnesium Ferritin ALT Lactate Dehydrogenase Total Creatine Kinase C-Reactive Protein Total Protein Albumin Urine Creatinine Salicylates Acetaminophen 07/27/22 07/27/22 07/27/22 07:17 09:00 09:15 WBC Hgb 11.6 L Hct 33.9 L D MCV MCHC RDW Lymph % (Auto) 8.9 L [place] % (Auto) 12.9 H Lymph # (Auto) 0.7 L [place] # (Auto) 0.9 H Seg Neutrophils % 78.1 H Seg Neutrophils # PT INR D-Dimer ABG pH ABG pO2 123.7 H ABG HCO3 ABG O2 Saturation ABG Base Excess -2.6 L ABG Hemoglobin 13.9 L Sodium Potassium Chloride Carbon Dioxide BUN Creatinine Glucose POC Glucose 119 H Hemoglobin A1c Lactic Acid Calcium Phosphorus Magnesium Ferritin ALT Lactate Dehydrogenase Total Creatine Kinase C-Reactive Protein Total Protein Albumin Urine Creatinine Salicylates Acetaminophen 07/27/22 07/27/22 07/27/22 09:45 09:45 09:45 WBC Hgb Hct MCV MCHC RDW Lymph % (Auto) [place] % (Auto) Lymph # (Auto) [place] # (Auto) Seg Neutrophils % Seg Neutrophils # PT INR D-Dimer 1818.59 H ABG pH ABG pO2 ABG HCO3 ABG O2 Saturation ABG Base Excess ABG Hemoglobin Sodium 157 H Potassium 3.3 L Chloride 122.9 H Carbon Dioxide BUN 28 H Creatinine 1.6 H Glucose 109 H POC Glucose Hemoglobin A1c Lactic Acid Calcium Phosphorus 1.30 L D Magnesium Ferritin 533.6 H ALT Lactate Dehydrogenase 220 H Total Creatine Kinase C-Reactive Protein 13.70 H Total Protein Albumin Urine Creatinine Salicylates Acetaminophen 07/27/22 07/27/22 07/27/22 11:17 13:20 13:55 WBC Hgb Hct MCV MCHC RDW Lymph % (Auto) [place] % (Auto) Lymph # (Auto) [place] # (Auto) Seg Neutrophils % Seg Neutrophils # PT INR D-Dimer ABG pH ABG pO2 125.0 H ABG HCO3 ABG O2 Saturation ABG Base Excess ABG Hemoglobin 11.6 L Sodium Potassium Chloride Carbon Dioxide BUN Creatinine Glucose POC Glucose 122 H 114 H Hemoglobin A1c Lactic Acid Calcium Phosphorus Magnesium Ferritin ALT Lactate Dehydrogenase Total Creatine Kinase C-Reactive Protein Total Protein Albumin Urine Creatinine Salicylates Acetaminophen 07/27/22 07/27/22 07/27/22 17:25 17:37 21:35 WBC Hgb Hct MCV MCHC RDW Lymph % (Auto) [place] % (Auto) Lymph # (Auto) [place] # (Auto) Seg Neutrophils % Seg Neutrophils # PT INR D-Dimer ABG pH ABG pO2 ABG HCO3 ABG O2 Saturation ABG Base Excess ABG Hemoglobin Sodium 155 H Potassium Chloride 120.6 H Carbon Dioxide BUN 25 H Creatinine Glucose 124 H POC Glucose 196 H Hemoglobin A1c Lactic Acid Calcium Phosphorus Magnesium Ferritin ALT Lactate Dehydrogenase Total Creatine Kinase C-Reactive Protein Total Protein Albumin Urine Creatinine 184.6 H Salicylates Acetaminophen 07/28/22 07/28/22 07/28/22 01:54 05:05 05:20 WBC Hgb 11.3 L Hct 34.8 L MCV MCHC RDW Lymph % (Auto) [place] % (Auto) Lymph # (Auto) [place] # (Auto) Seg Neutrophils % Seg Neutrophils # PT INR D-Dimer ABG pH ABG pO2 148.2 H ABG HCO3 ABG O2 Saturation ABG Base Excess -4.6 L ABG Hemoglobin 13.2 L Sodium Potassium Chloride Carbon Dioxide BUN Creatinine Glucose POC Glucose 250 H Hemoglobin A1c Lactic Acid Calcium Phosphorus Magnesium Ferritin ALT Lactate Dehydrogenase Total Creatine Kinase C-Reactive Protein Total Protein Albumin Urine Creatinine Salicylates Acetaminophen 0907/28/22 07/28/22 05:20 05:20 06:05 WBC Hgb Hct MCV MCHC RDW Lymph % (Auto) [place] % (Auto) Lymph # (Auto) [place] # (Auto) Seg Neutrophils % Seg Neutrophils # PT INR D-Dimer ABG pH ABG pO2 ABG HCO3 ABG O2 Saturation ABG Base Excess ABG Hemoglobin Sodium 154 H Potassium Chloride 120.2 H Carbon Dioxide BUN 21 H Creatinine Glucose 318 H POC Glucose 292 H Hemoglobin A1c 11.0 H Lactic Acid Calcium 8.2 L Phosphorus Magnesium Ferritin ALT < 5 L Lactate Dehydrogenase Total Creatine Kinase C-Reactive Protein Total Protein 5.9 L D Albumin 2.9 L Urine Creatinine Salicylates Acetaminophen 07/28/22 07/28/22 07:58 10:26 WBC Hgb Hct MCV MCHC RDW Lymph % (Auto) [place] % (Auto) Lymph # (Auto) [place] # (Auto) Seg Neutrophils % Seg Neutrophils # PT INR D-Dimer ABG pH ABG pO2 130.8 H ABG HCO3 17.8 L ABG O2 Saturation ABG Base Excess -6.2 L ABG Hemoglobin 11.5 L Sodium Potassium Chloride Carbon Dioxide BUN Creatinine Glucose POC Glucose 297 H Hemoglobin A1c Lactic Acid Calcium Phosphorus Magnesium Ferritin ALT Lactate Dehydrogenase Total Creatine Kinase C-Reactive Protein Total Protein Albumin Urine Creatinine Salicylates Acetaminophen Chest x-ray: image reviewed (tubes and lines in good position) Allied health notes reviewed: nursing
--- NOTE | 2022-07-28 16:04 | Vascular Lab Report ---
DUPLEX DOPPLER LOWER EXTREMITY VEINS, BILATERAL INDICATION / CLINICAL INFORMATION: BLE swelling. TECHNIQUE: Duplex doppler imaging was performed through the veins of both lower extremities using damion ous compression and other maneuvers. COMPARISON: None available. FINDINGS: RIGHT COMMON FEMORAL VEIN: Negative. RIGHT FEMORAL VEIN: Negative. RIGHT POPLITEAL VEIN: Negative. RIGHT CALF VEINS: Negative. LEFT COMMON FEMORAL VEIN: Negative. LEFT FEMORAL VEIN: Negative. LEFT POPLITEAL VEIN: Negative. LEFT CALF VEINS: Negative. ADDITIONAL FINDINGS: Catheter noted in the patent right proximal femoral artery. IMPRESSION: 1. No sonographic evidence for DVT in either lower extremity. Scribed by: Megan Alvarado RDMS, EMILIA, ANDREA Scribed: 07/28/2022 2:08 PM I have reviewed the images, agree with this report, and edited this report as needed. Signer Name: Ismael Michel MD Signed: 07/28/2022 4:00 PM Workstation Name: [id number]
[2022-07-28] MEDS: FAMOTIDINE 20 MG TAB PO SCH (21:38)
[2022-07-28] MEDS ORDERED: INSULIN GLARGINE 100 UNITS/ML SUB-Q SCH ×2 (22:00)
[2022-07-28] MEDS ORDERED: SENNOSIDES/DOCUSATE SODIUM 8.6/50 MG TAB PO SCH (22:00)
[2022-07-29] MEDS: ONDANSETRON 4 MG/2 ML INJ IV PRN (02:29)
[2022-07-29] MEDS: HEPARIN 5,000 UNIT/1 ML VIAL SUB-Q SCH (05:34)
[2022-07-29 05:47] VITALS: BP 139/77
[2022-07-29] MEDS ORDERED: LEVOTHYROXINE 88 MCG TAB FEEDTUBE SCH (06:00)
[2022-07-29] MEDS ORDERED: LEVOTHYROXINE 88 MCG TAB PO SCH (06:00)
--- NOTE | 2022-07-29 09:15 | Discharge Summary ---
Providers - Providers Date of Admission: 07/26/22 12:01 Date of discharge: 07/29/22 Attending physician: EDU GENTILE MD 07/26/22 12:01 Consult to Physician [CONS] Routine Comment: Consulting Provider: ZEESHAN BLOUNT Physician Instructions: Reason For Exam: sepsis, dka, resp failure 07/26/22 12:32 Consult to Cardiology [CONS] Routine Consulting Provider: GEORGE HANSON Reason For Exam: chf 07/26/22 12:35 Consult to Physician [CONS] Routine Comment: Consulting Provider: EMEKA VERONICA Physician Instructions: Reason For Exam: mick 07/28/22 15:25 Occupational Therapy Evaluate and Treat [CONS] Routine Comment: Reason For Exam: weakness Physical Therapy Evaluation and Treat [CONS] Routine Comment: Reason For Exam: weakness Primary care physician: PRN OCCUPATIONAL THERAPIST Hospitalization Reason for admission: unresponsive Condition: Critical Hospital course: History Interval history: This is a 57 year old male with HTN, DM, HLD, CHF, metabolic syndrome, OHS and OA who presented to the emergency department via EMS after being found unresponsive by his . On arrival to the emergency department patient was GCS of 7, level consistent with DKA complicated by Acute respiratory failure, sepsis and acute kidney injury. Patient was intubated in the emergency department and initiated on sepsis and DKA protocol. Patient was noted to have acute kidney injury, leukocytosis, tachycardia and hypotension along with lactic acidosis. Hospital Course to Date: 07/27: Remains on the vent, awake and following commands. Remains on DKA protocol and sodium bicabr gtt. Metabolic acidosis and leukocytosis improved. Hypothermia resolved, patient is off pressors this am, VSS. Cultures and Procal pending. Continue current empiric IV abx for now. 2D echo pending and cardiology is following. Elevated D-Dimer noted, BLE swelling noted, will check D-Dimer to r/o DVT. VTE heparin SubQ initiated. Renal function continue to improved, continue IVF resuscitation per DKA protocol. Nephrology is also following. Plan for PSV trial today per [facility] , plan for possible extubation tomorrow. Will transition patient to subQ insulin once anion gap is closed. 07/28: This morning patient was placed on CPAP trial and he is tolerating that well, does follow commands. Increasing Lantus due to hypoglycemia, Lipitor and levothyroxine home dose started. MRSA pending. Vancomycin stopped. We will repeat procalcitonin and CRP. Patient was extubated today. RN to perform bedside swallow evaluation. Sheriff catheter and CVL to be removed today. 07/29: Discharge home today. Rx for lantus and novolog to be given on d/c as well as instructions to follow up with OP endocrinology. Assessment and plan: This is a 57-year-old male with HTN, DM, HLD, CHF, OA, and obesity admitted for r/o septic shock, DKA, MICK, and acute hypoxic respiratory failure requiring ventilatory support. Neuro: Acute metabolic encephalopathy (resolving) -Reorientation as needed -Maintain sleep-wake cycle -As needed analgesia -CT head with no acute intracranial abnormality Cardiac: h/o HTN, CHF, HLD -Cardiology consulted, appreciate recommendations -Blood pressure monitoring per protocol -Resume home lipitor -Echocardiogram shows LVEF of 55 to 60%, Respiratory: Acute hypoxic respiratory failure -CCM consulted, appreciate recommendations -Intubated on 07/26 by EMS with 7.5 OETT at 22 at the lips -A.m. vent settings: PSV 08/27 -See RT notes for titration -Extubated 07/28 -A.m. ABG and CXR noted -VAP bundle -SPO2 monitoring GI: Moderate protein calorie malnutrition -24 hours -1080 mL -PPI -NTR consulted for tube feedings -BR: Senokot S : Acute kidney injury secondary to vasomotor nephropathy (improving), Hypernatremia -Nephrology consulted, appreciate recommendations -Strict intake and output -Renally dose medications -Avoid nephrotoxic medications -07/27 FeNa 0.65% suggestive of prerenal -Renal ultrasound pending -Trend BMP ID: r/o Sepsis, lactic acidosis (resolved) -Presented with severe metabolic acidosis, hypothermia, hypotension requiring vasopressor use and bicarbonate drip -Initial CXR showed mild pulmonary venous congestion -COVID-19 PCR negative -CRP 13.70 and procalcitonin 3.63 -Antibiotic therapy with cefepime and vancomycin -MRSA pending -f/u blood culture -Monitor WBC and temperature curve Endo: s/p DKA, h/o Type 2 DM, hypothyroidism -S/p insulin drip -Presented with hyperglycemia, high anion gap, severe metabolic acidosis, k etones in urinalysis -Hbg A1C 11 -SSI -Accu-Cheks q. every 6 -Long-acting insulin, titrate as needed -Resume home Synthroid -Avoid hypoglycemia Heme: Elevated D-dimer -D-dimer 1818 -Bilateral lower extremity Ultrasound pending -Trend CBC -Transfuse hemoglobin less than 7 -SCDs to BLE while in bed Disposition: 01 HOME / SELF CARE / HOMELESS Final Discharge Diagnosis (Prints w/discharge instructions): diabetic ketoacidosis Time spent for discharge: 35 Core Measure Documentation - Palliative Care Palliative Care/ Comfort Measures: Not Applicable - Core Measures Any of the following diagnoses?: none Exam - Physical Exam Narrative exam: General appearance: Present: no acute distress, well-nourished, obese, other (On the vent) - EENT Eyes: Present: PERRL, EOM intact ENT: hearing intact, clear oral mucosa - Neck Neck: Present: normal ROM - Respiratory Respiratory effort: normal Respiratory: bilateral: CTA, diminished - Cardiovascular Rhythm: regular Heart Sounds: Present: S1 & S2. Absent: systolic murmur, diastolic murmur - Extremities Extremities: no ischemia, pulses intact, pulses symmetrical, No edema, normal temperature, normal color Extremity abnormal: edema - Peripheral Assessment Right Lower Extremity Edema Type: Non-pitting Capillary Refill: < 3 seconds Skin Temperature: Warm Peripheral Pulses: within normal limits - Abdominal General gastrointestinal: soft, non-tender, non-distended, normal bowel sounds - Integumentary Integumentary: Present: warm, dry - Psychiatric Psychiatric: cooperative - Neurologic Neurologic: CNII-XII intact, no focal deficits, moves all extremities - Constitutional Vitals: Temp Pulse Resp BP Pulse Ox 97.1 F L 98 H 20 139/77 98 07/29/22 05:41 07/29/22 05:41 07/29/22 05:41 07/29/22 05:41 07/28/22 22:08 Plan Follow up with: PRIMARY CARE, [Primary Care Provider] - 3-5 Days Prescriptions: Insulin Glargine,Hum.rec.anlog [Lantus Solostar] 35 unit SQ QHS 30 Days #1 box Insulin Aspart (Nf) [NovoLOG Flexpen] 0 units SQ ACHS 30 Days #1 box
[2022-07-29] MEDS: INSULIN LISPRO 100 UNIT/ML SUB-Q SCH ×2 (09:26→16:04)
--- NOTE | 2022-07-29 09:31 | Ultrasound Report ---
ULTRASOUND RENAL INDICATION / CLINICAL INFORMATION: Acute renal failure.. COMPARISON: None available. FINDINGS: RIGHT KIDNEY: Length = 10.5 cm. - Echogenicity: Normal. - Cortical Thickness: Normal. - Hydronephrosis: None. - Cyst or mass: Hypoechoic area within the right kidney measures 3.1 x 3.3 cm may represent a cyst ho wever nonspecific - Stones: None seen. LEFT KIDNEY: Length = 13.5 cm. - Echogenicity: Normal. - Cortical Thickness: Normal. - Hydronephrosis: None. - Cyst or mass: Hypoechoic mass in the superior all measured 2.5 x 2.3 x 2.4 cm with low vascularity. - Stones: None seen. URINARY BLADDER: No significant abnormality. FREE FLUID: None. ADDITIONAL FINDINGS: None. IMPRESSION: 1. Hypoechoic masslike area in the left kidney. A CT is recommended for further evaluation. 2. Possible right renal cyst. Signer Name: Ramin Rankin MD Signed: 07/29/2022 9:27 AM Workstation Name: [email or web address]
--- NOTE | 2022-07-29 09:57 | Progress Note ---
Assessment and Plan 1. Acute kidney injury: Vasomotor MICK in the setting of DKA. Urine studies and Renal US ordered. Monitor renal function. Creatinine level is better. Avoid nephrotoxic agents. Meds dosage based on GFR. 2. FEN: Anion-gap metabolic acidosis, improved, monitor. Hypernatremia, encourage PO fluids, monitor. Replete lytes appropriately. Monitor lytes and volume status. 3. DKA: Improevd. 4. Acute hypoxic resp failure, POA: S/p extubated. On RA. Followed by Pulmonary. 5. H/o Hypertension: Monitor BP. 6. H/o CHF: Echo with normal EF. Monitor. F/u with me in 1-2 weeks after discharge. Subjective: Patient was seen and examined at the bedside. Sitting in the bed. Examination: General appearance: well-developed, appears stated age, no distress HEENT: atraumatic Neck: trachea midline Respiratory: ctab Heart: S1S2, regular, no murmur Abdomen: soft, bowel sounds heard, NT Integumentary: no obvious rash Neurologic: alert, conversing, able to move extremities Ext: no edema Subjective Date of service: 07/29/22 Principal diagnosis: Acute hypoxemic respiratory failure; AMS; DKA; Sepsis; MICK; CHF; Obesity Objective - Vital Signs Vital signs: Vital Signs - 12hr 07/28/22 07/28/22 07/29/22 22:00 22:08 05:41 Temperature 97.1 F L Pulse Rate [ 98 H Left] Respiratory 16 20 Rate Blood Pressure 139/77 O2 Sat by Pulse 100 98 Oximetry - Lab 07/28/22 05:20 07/28/22 05:20 Most recent lab results ABG pH 7.383 pH Units (7.350-7.450) 07/28/22 10:26 ABG pCO2 30.6 mm Hg 07/28/22 10:26 ABG pO2 130.8 mm Hg (80.0-90.0) H 07/28/22 10:26 ABG HCO3 17.8 mmol/L (20.0-26.0) L 07/28/22 10:26 ABG O2 Saturation 98.6 % (95.0-99.0) 07/28/22 10:26 Calcium 8.2 mg/dL (8.4-10.2) L 07/28/22 05:20 Phosphorus 2.50 mg/dL (2.5-4.5) 07/28/22 05:20 Magnesium 2.10 mg/dL (1.7-2.3) 07/28/22 05:20 Urine Creatinine 184.6 mg/dL (0.1-20.0) H 07/27/22 17:37 Urine Sodium 154 mmol/L 07/27/22 17:37 Medications & Allergies - Medications Allergies/Adverse Reactions: Allergies liraglutide [From Victoza] Allergy (Verified 07/28/22 08:26) Vomiting shellfish derived Allergy (Verified 07/28/22 08:25) Swelling Home Medications: Home Medications Medication Instructions Recorded Confirmed Last Taken Type AtorvaSTATin 10 mg PO QHS 30 Days #30 tab 07/29/22 Unknown Rx Entresto 49-51 mg 49 - 51 mg PO BID 30 Days #60 tab 07/29/22 Unknown Rx Insulin Aspart (Nf) [NovoLOG 0 units SQ ACHS 30 Days #1 box 07/29/22 Unknown Rx Flexpen] Insulin Glargine,Hum.rec.anlog 35 unit SQ QHS 30 Days #1 box 07/29/22 Unknown Rx [Lantus Solostar] Levothyroxine [Synthroid] 88 mcg PO DAILY 30 Days #30 tab 07/29/22 Unknown Rx Metoprolol Xl [Metoprolol 50 mg PO QDAY 30 Days #30 tab 07/29/22 Unknown Rx SUCCINATE ER TAB] Active Medications: Generic Name Dose Route Start Last Admin Trade Name Freq PRN Reason Stop Dose Admin Acetaminophen 650 mg 07/26/22 12:04 Acetaminophen 325 Mg Tab PO Q6H PRN Pain, Mild (1-3) Atorvastatin Calcium 10 mg 07/28/22 22:00 07/28/22 21:38 Atorvastatin 10 Mg Tab PO 10 mg QHS MALDONADO Administration Dextrose 50 ml 07/27/22 18:25 Dextrose 50% In Water (25gm) 50 Ml Syringe IV Q30MIN PRN Hypoglycemia Protocol Famotidine 20 mg 07/28/22 22:00 07/28/22 21:38 Famotidine 20 Mg Tab PO 20 mg BID MALDONADO Administration Heparin Sodium (Porcine) 5,000 unit 07/27/22 14:00 07/29/22 05:34 Heparin 5,000 Unit/1 Ml Vial SUB-Q 5,000 unit Q8HR MALDONADO Administration Hydrophilic Ointment 1 applic 07/26/22 16:11 Lip Therapy Vaseline TP Q2HR PRN Dry Lips Ceftriaxone Sodium 2 gm in 100 mls @ 200 mls/hr 07/27/22 10:00 07/28/22 09:13 Rocephin/Ns 2 Gm/100 Ml IV 07/31/22 10:29 200 mls/hr Q24H MALDONADO Administration Protocol Insulin Glargine 25 units 07/28/22 22:00 07/28/22 22:27 Insulin Glargine 100 Units/Ml SUB-Q 25 units QHS MALDONADO Administration Insulin Human Lispro 0 unit 07/28/22 16:30 07/29/22 09:26 Insulin Lispro 100 Unit/Ml SUB-Q 4 unit ACHS MALDONADO Administration Protocol Levothyroxine Sodium 88 mcg 07/29/22 06:00 07/29/22 05:34 Levothyroxine 88 Mcg Tab PO 88 mcg DAILY@0600 MALDONADO Administration Multi-Ingred Cream/Lotion/Oil/Oint 1 applic 07/26/22 16:11 Mineral Oil/Petrolatum, White Ophth Oint 3.5 Gm OU Q4HR PRN Dry Eye(s) Ondansetron HCl 4 mg 07/26/22 22:06 07/29/22 02:29 Ondansetron 4 Mg/2 Ml Inj IV 4 mg Q4H PRN Administration Nausea And Vomiting Oxycodone/Acetaminophen 1 tab 07/26/22 11:59 Oxycodone /Acetaminophen 5-325mg Tab PO Q16H PRN Pain, Moderate (4-6) Senna/Docusate Sodium 1 tab 07/28/22 22:00 07/28/22 21:38 Sennosides/Docusate Sodium 8.6/50 Mg Tab PO 1 tab QHS MALDONADO Administration Sodium Chloride 10 ml 07/26/22 22:00 07/28/22 21:40 Sodium Chloride 0.9% 10 Ml Flush Syringe IV 10 ml BID MALDONADO Administration Sodium Chloride 10 ml 07/26/22 11:59 Sodium Chloride 0.9% 10 Ml Flush Syringe IV PRN PRN LINE FLUSH
[2022-07-29] MEDS: FAMOTIDINE 20 MG TAB PO SCH (11:41)
[2022-07-29] MEDS: cefTRIAXone/NS 2 GM/100 ML 2 GM/100 ML BAG IV SCH (11:42)
[2022-07-29] MEDS ORDERED: METOPROLOL TARTRATE 25 MG TAB PO SCH (12:00)
--- NOTE | 2022-07-29 13:16 | Progress Note ---
Assessment and Plan 57 YO Male with HTN, DM, HLD, CHF, Metabolic Syndrome, Obesity Hypoventilation Syndrome, OA presents to ED for evaluation. Patient is intubated and on ventilatory support. . As per the patient was found to be unresponsive. EMS was notified and upon arrival the patient was found to be in distress and subsequent transported to [facility] for further care and evaluation of the aforementioned symptoms. Patient was found to have a Paterson Coma Score of 7 upon arrival, diabetic ketoacidosis complicated by acute hypoxemic respiratory failure, sepsis and acute kidney injury. Patient intubated urgently and placed on ventilatory support in the emergency department. Patient also initiated on sepsis and DKA protocols respectively. Patient found to have multiple organ system failure and poor prognosis. No reports of fever, chills, chest pain, palpitation, productive cough, skin rash, recent contact, known exposure to COVID-19. Critical care team consulted, cardiology team consulted, nephrology team consulted. Patient does not have a history of smoking, alcohol or drug abuse. 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 Patient is without children. Allergic to Liraglutide, and shellfish Patient is extubated and trasfered to the medical floor.Patient is alert and awake, resting on room air. O2 saturation 100%. Patient is afebrile, BP 139/77, P 98, RR 16 Chest xray 07/28/22: Right basilar atelectatic changes and minimal infiltrate appear improved. No pneumothorax. Patient is on Ceftriaxone, S/c Heparin, Famotidine - Patient Problems (1) Acute hypoxemic respiratory failure Status: Acute Plan to address problem: Patient is intubated, and extubated. Patient presently on room air. O2 saturation is 100%. Continue S/C Heparin. Continue Famotidine (2) AMS (altered mental status) Status: Acute Plan to address problem: Managment [facility] primary care (3) Acute kidney injury (MICK) with acute tubular necrosis (ATN) Status: Acute Plan to address problem: Managmetn jonathan nephrology (4) CHF (congestive heart failure) Status: Acute Qualifiers: Heart failure chronicity: chronic Plan to address problem: Managment [facility] cardiology (5) DKA (diabetic ketoacidosis) Status: Acute Plan to address problem: Management [facility] Primary Care Subjective Date of service: 07/29/22 Principal diagnosis: Acute hypoxemic respiratory failure; AMS; DKA; Sepsis; MICK; CHF; Obesity Interval history: 57 YO Male with HTN, DM, HLD, CHF, Metabolic Syndrome, Obesity Hypoventilation Syndrome, OA presents to ED for evaluation. Patient is intubated and on ventilatory support. . As per the patient was found to be unresponsive. EMS was notified and upon arrival the patient was found to be in distress and subsequent transported to [facility] for further care and evaluation of the aforementioned symptoms. Patient was found to have a Paterson Coma Score of 7 upon arrival, diabetic ketoacidosis complicated by acute hypoxemic respiratory failure, sepsis and acute kidney injury. Patient intubated urgently and placed on ventilatory support in the emergency department. Patient also initiated on sepsis and DKA protocols respectively. Patient found to have multiple organ system failure and poor prognosis. No reports of fever, chills, chest pain, palpitation, productive cough, skin rash, recent contact, known exposure to COVID-19. Critical care team consulted, cardiology team consulted, nephrology team consulted. Patient does not have a history of smoking, alcohol or drug abuse. 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 Patient is without children. Allergic to Liraglutide, and shellfish Patient is extubated and trasfered to the medical floor. Patient is alert and awake, resting on room air. O2 saturation 100%. Patient is afebrile, BP 139/77, P 98, RR 16 Chest xray 07/28/22: Right basilar atelectatic changes and minimal infiltrate appear improved. No pneumothorax. Patient is on Ceftriaxone, S/c Heparin, Famotidine Objective Vital Signs - 12hr 07/29/22 05:41 Temperature 97.1 F L Pulse Rate [ 98 H Left] Respiratory 20 Rate Blood Pressure 139/77 Constitutional: no acute distress, alert Eyes: non-icteric ENT: oropharynx moist, other (ETT 24 cm AMANDA) Neck: supple, no lymphadenopathy, no JVD Effort: mildly labored Ascultation: Bilateral: diminished breath sounds, rhonchi (scant) Percussion: Bilateral: not dull Cardiovascular: regular rate and rhythm Gastrointestinal: normoactive bowel sounds, soft, non-tender, non-distended (protuberant) Integumentary: normal Extremities: no cyanosis, no edema, pulses normal, no ischemia or petechiae Neurologic: non-focal exam (grossly), pupils equal and round, CN II-XII normal, motor strength normal and Psychiatric: mood appropriate, affect normal CBC and BMP: 07/28/22 05:20 07/28/22 05:20 ABG, PT/INR, D-dimer: ABG ABG pH 7.383 pH Units (7.350-7.450) 07/28/22 10:26 ABG pCO2 30.6 mm Hg 07/28/22 10:26 ABG pO2 130.8 mm Hg (80.0-90.0) H 07/28/22 10:26 ABG O2 Saturation 98.6 % (95.0-99.0) 07/28/22 10:26 PT/INR, D-dimer PT 17.2 Sec. (12.2-14.9) H 07/26/22 08:11 INR 1.25 (0.87-1.13) H 07/26/22 08:11 D-Dimer 1818.59 ng/mlDDU (0-234) H 07/27/22 09:45 Abnormal lab findings: Abnormal Labs 07/26/22 07/26/22 07/26/22 07:30 08:11 08:11 WBC 13.5 H Hgb Hct 45.7 H MCV 113 H MCHC 26 L RDW 16.5 H Lymph % (Auto) 11.2 L [place] % (Auto) 9.1 H Lymph # (Auto) [place] # (Auto) 1.2 H Seg Neutrophils % 79.4 H Seg Neutrophils # 10.7 H PT 17.2 H INR 1.25 H D-Dimer ABG pH ABG pO2 ABG HCO3 ABG O2 Saturation ABG Base Excess ABG Hemoglobin Sodium Potassium Chloride Carbon Dioxide BUN Creatinine Glucose POC Glucose > 600 H Hemoglobin A1c Lactic Acid Calcium Phosphorus Magnesium Ferritin ALT Lactate Dehydrogenase Total Creatine Kinase C-Reactive Protein Total Protein Albumin Urine Creatinine Salicylates Acetaminophen 07/26/22 07/26/22 07/26/22 08:11 08:11 08:11 WBC Hgb Hct MCV MCHC RDW Lymph % (Auto) [place] % (Auto) Lymph # (Auto) [place] # (Auto) Seg Neutrophils % Seg Neutrophils # PT INR D-Dimer ABG pH ABG pO2 ABG HCO3 ABG O2 Saturation ABG Base Excess ABG Hemoglobin Sodium 136 L Potassium 7.6 H* Chloride 95.0 L Carbon Dioxide 2 L* BUN 33 H Creatinine 2.5 H Glucose 1037 H* POC Glucose Hemoglobin A1c Lactic Acid 4.00 H* Calcium Phosphorus Magnesium Ferritin ALT 6 L Lactate Dehydrogenase Total Creatine Kinase 233 H C-Reactive Protein Total Protein Albumin Urine Creatinine Salicylates < 0.3 L Acetaminophen 07/26/22 07/26/22 07/26/22 08:11 08:11 08:48 WBC Hgb Hct MCV MCHC RDW Lymph % (Auto) [place] % (Auto) Lymph # (Auto) [place] # (Auto) Seg Neutrophils % Seg Neutrophils # PT INR D-Dimer ABG pH 6.863 L* ABG pO2 179.0 H ABG HCO3 1.5 L ABG O2 Saturation ABG Base Excess > -30.0 L ABG Hemoglobin 11.8 L Sodium Potassium Chloride Carbon Dioxide BUN Creatinine Glucose POC Glucose Hemoglobin A1c Lactic Acid Calcium Phosphorus Magnesium Ferritin ALT Lactate Dehydrogenase Total Creatine Kinase 222 H C-Reactive Protein Total Protein Albumin Urine Creatinine Salicylates Acetaminophen 5.0 L 07/26/22 07/26/22 07/26/22 09:27 11:13 11:30 WBC Hgb Hct MCV MCHC RDW Lymph % (Auto) [place] % (Auto) Lymph # (Auto) [place] # (Auto) Seg Neutrophils % Seg Neutrophils # PT INR D-Dimer ABG pH ABG pO2 574.0 H ABG HCO3 5.6 L ABG O2 Saturation 99.6 H ABG Base Excess -28.7 L ABG Hemoglobin 12.0 L Sodium Potassium Chloride Carbon Dioxide BUN Creatinine Glucose POC Glucose > 600 H Hemoglobin A1c Lactic Acid Calcium Phosphorus 12.80 H Magnesium 2.80 H Ferritin ALT Lactate Dehydrogenase Total Creatine Kinase C-Reactive Protein Total Protein Albumin Urine Creatinine Salicylates Acetaminophen 07/26/22 07/26/22 07/26/22 11:36 11:36 12:02 WBC Hgb Hct MCV MCHC RDW Lymph % (Auto) [place] % (Auto) Lymph # (Auto) [place] # (Auto) Seg Neutrophils % Seg Neutrophils # PT INR D-Dimer ABG pH ABG pO2 ABG HCO3 ABG O2 Saturation ABG Base Excess ABG Hemoglobin Sodium Potassium 7.0 H* Chloride Carbon Dioxide 4 L* BUN 35 H Creatinine 2.8 H Glucose 977 H* POC Glucose > 600 H Hemoglobin A1c Lactic Acid 3.30 H* Calcium Phosphorus Magnesium Ferritin ALT Lactate Dehydrogenase Total Creatine Kinase C-Reactive Protein Total Protein Albumin Urine Creatinine Salicylates Acetaminophen 07/26/22 07/26/22 07/26/22 14:06 14:52 15:54 WBC Hgb Hct MCV MCHC RDW Lymph % (Auto) [place] % (Auto) Lymph # (Auto) [place] # (Auto) Seg Neutrophils % Seg Neutrophils # PT INR D-Dimer ABG pH ABG pO2 ABG HCO3 ABG O2 Saturation ABG Base Excess ABG Hemoglobin Sodium Potassium Chloride Carbon Dioxide BUN Creatinine Glucose POC Glucose > 600 H > 600 H 573 H Hemoglobin A1c Lactic Acid Calcium Phosphorus Magnesium Ferritin ALT Lactate Dehydrogenase Total Creatine Kinase C-Reactive Protein Total Protein Albumin Urine Creatinine Salicylates Acetaminophen 07/26/22 07/26/22 07/26/22 16:55 16:55 17:11 WBC Hgb Hct MCV MCHC RDW Lymph % (Auto) [place] % (Auto) Lymph # (Auto) [place] # (Auto) Seg Neutrophils % Seg Neutrophils # PT INR D-Dimer ABG pH ABG pO2 ABG HCO3 ABG O2 Saturation ABG Base Excess ABG Hemoglobin Sodium 148 H Potassium Chloride 110.5 H Carbon Dioxide 6 L* BUN 35 H Creatinine 2.6 H Glucose 623 H* POC Glucose 538 H Hemoglobin A1c Lactic Acid 2.30 H* Calcium Phosphorus Magnesium Ferritin ALT Lactate Dehydrogenase Total Creatine Kinase C-Reactive Protein Total Protein Albumin Urine Creatinine Salicylates Acetaminophen 07/26/22 07/26/22 07/26/22 17:54 19:04 20:02 WBC Hgb Hct MCV MCHC RDW Lymph % (Auto) [place] % (Auto) Lymph # (Auto) [place] # (Auto) Seg Neutrophils % Seg Neutrophils # PT INR D-Dimer ABG pH ABG pO2 ABG HCO3 ABG O2 Saturation ABG Base Excess ABG Hemoglobin Sodium Potassium Chloride Carbon Dioxide BUN Creatinine Glucose POC Glucose 538 H 471 H 486 H Hemoglobin A1c Lactic Acid Calcium Phosphorus Magnesium Ferritin ALT Lactate Dehydrogenase Total Creatine Kinase C-Reactive Protein Total Protein Albumin Urine Creatinine Salicylates Acetaminophen 07/26/22 07/26/22 07/26/22 20:57 21:00 22:07 WBC Hgb Hct MCV MCHC RDW Lymph % (Auto) [place] % (Auto) Lymph # (Auto) [place] # (Auto) Seg Neutrophils % Seg Neutrophils # PT INR D-Dimer ABG pH 7.329 L ABG pO2 258.5 H ABG HCO3 8.4 L ABG O2 Saturation 99.4 H ABG Base Excess -15.1 L ABG Hemoglobin 12.1 L Sodium Potassium Chloride Carbon Dioxide BUN Creatinine Glucose POC Glucose 316 H 264 H Hemoglobin A1c Lactic Acid Calcium Phosphorus Magnesium Ferritin ALT Lactate Dehydrogenase Total Creatine Kinase C-Reactive Protein Total Protein Albumin Urine Creatinine Salicylates Acetaminophen 07/26/22 07/27/22 07/27/22 23:01 00:06 00:55 WBC Hgb Hct MCV MCHC RDW Lymph % (Auto) [place] % (Auto) Lymph # (Auto) [place] # (Auto) Seg Neutrophils % Seg Neutrophils # PT INR D-Dimer ABG pH ABG pO2 ABG HCO3 ABG O2 Saturation ABG Base Excess ABG Hemoglobin Sodium 156 H D Potassium 3.0 L D Chloride 122.8 H Carbon Dioxide 17 L D BUN 31 H Creatinine 1.7 H Glucose 196 H POC Glucose 218 H 181 H Hemoglobin A1c Lactic Acid Calcium Phosphorus Magnesium Ferritin ALT Lactate Dehydrogenase Total Creatine Kinase C-Reactive Protein Total Protein Albumin Urine Creatinine Salicylates Acetaminophen 07/27/22 07/27/22 07/27/22 01:00 02:00 03:02 WBC Hgb Hct MCV MCHC RDW Lymph % (Auto) [place] % (Auto) Lymph # (Auto) [place] # (Auto) Seg Neutrophils % Seg Neutrophils # PT INR D-Dimer ABG pH ABG pO2 ABG HCO3 ABG O2 Saturation ABG Base Excess ABG Hemoglobin Sodium Potassium Chloride Carbon Dioxide BUN Creatinine Glucose POC Glucose 173 H 156 H 140 H Hemoglobin A1c Lactic Acid Calcium Phosphorus Magnesium Ferritin ALT Lactate Dehydrogenase Total Creatine Kinase C-Reactive Protein Total Protein Albumin Urine Creatinine Salicylates Acetaminophen 07/27/22 07/27/22 07/27/22 03:59 05:02 06:03 WBC Hgb Hct MCV MCHC RDW Lymph % (Auto) [place] % (Auto) Lymph # (Auto) [place] # (Auto) Seg Neutrophils % Seg Neutrophils # PT INR D-Dimer ABG pH ABG pO2 ABG HCO3 ABG O2 Saturation ABG Base Excess ABG Hemoglobin Sodium Potassium Chloride Carbon Dioxide BUN Creatinine Glucose POC Glucose 133 H 117 H 111 H Hemoglobin A1c Lactic Acid Calcium Phosphorus Magnesium Ferritin ALT Lactate Dehydrogenase Total Creatine Kinase C-Reactive Protein Total Protein Albumin Urine Creatinine Salicylates Acetaminophen 07/27/22 07/27/22 07/27/22 07:17 09:00 09:15 WBC Hgb 11.6 L Hct 33.9 L D MCV MCHC RDW Lymph % (Auto) 8.9 L [place] % (Auto) 12.9 H Lymph # (Auto) 0.7 L [place] # (Auto) 0.9 H Seg Neutrophils % 78.1 H Seg Neutrophils # PT INR D-Dimer ABG pH ABG pO2 123.7 H ABG HCO3 ABG O2 Saturation ABG Base Excess -2.6 L ABG Hemoglobin 13.9 L Sodium Potassium Chloride Carbon Dioxide BUN Creatinine Glucose POC Glucose 119 H Hemoglobin A1c Lactic Acid Calcium Phosphorus Magnesium Ferritin ALT Lactate Dehydrogenase Total Creatine Kinase C-Reactive Protein Total Protein Albumin Urine Creatinine Salicylates Acetaminophen 07/27/22 07/27/22 07/27/22 09:45 09:45 09:45 WBC Hgb Hct MCV MCHC RDW Lymph % (Auto) [place] % (Auto) Lymph # (Auto) [place] # (Auto) Seg Neutrophils % Seg Neutrophils # PT INR D-Dimer 1818.59 H ABG pH ABG pO2 ABG HCO3 ABG O2 Saturation ABG Base Excess ABG Hemoglobin Sodium 157 H Potassium 3.3 L Chloride 122.9 H Carbon Dioxide BUN 28 H Creatinine 1.6 H Glucose 109 H POC Glucose Hemoglobin A1c Lactic Acid Calcium Phosphorus 1.30 L D Magnesium Ferritin 533.6 H ALT Lactate Dehydrogenase 220 H Total Creatine Kinase C-Reactive Protein 13.70 H Total Protein Albumin Urine Creatinine Salicylates Acetaminophen 07/27/22 07/27/22 07/27/22 11:17 13:20 13:55 WBC Hgb Hct MCV MCHC RDW Lymph % (Auto) [place] % (Auto) Lymph # (Auto) [place] # (Auto) Seg Neutrophils % Seg Neutrophils # PT INR D-Dimer ABG pH ABG pO2 125.0 H ABG HCO3 ABG O2 Saturation ABG Base Excess ABG Hemoglobin 11.6 L Sodium Potassium Chloride Carbon Dioxide BUN Creatinine Glucose POC Glucose 122 H 114 H Hemoglobin A1c Lactic Acid Calcium Phosphorus Magnesium Ferritin ALT Lactate Dehydrogenase Total Creatine Kinase C-Reactive Protein Total Protein Albumin Urine Creatinine Salicylates Acetaminophen 07/27/22 07/27/22 07/27/22 17:25 17:37 21:35 WBC Hgb Hct MCV MCHC RDW Lymph % (Auto) [place] % (Auto) Lymph # (Auto) [place] # (Auto) Seg Neutrophils % Seg Neutrophils # PT INR D-Dimer ABG pH ABG pO2 ABG HCO3 ABG O2 Saturation ABG Base Excess ABG Hemoglobin Sodium 155 H Potassium Chloride 120.6 H Carbon Dioxide BUN 25 H Creatinine Glucose 124 H POC Glucose 196 H Hemoglobin A1c Lactic Acid Calcium Phosphorus Magnesium Ferritin ALT Lactate Dehydrogenase Total Creatine Kinase C-Reactive Protein Total Protein Albumin Urine Creatinine 184.6 H Salicylates Acetaminophen 07/28/22 07/28/22 07/28/22 01:54 05:05 05:20 WBC Hgb 11.3 L Hct 34.8 L MCV MCHC RDW Lymph % (Auto) [place] % (Auto) Lymph # (Auto) [place] # (Auto) Seg Neutrophils % Seg Neutrophils # PT INR D-Dimer ABG pH ABG pO2 148.2 H ABG HCO3 ABG O2 Saturation ABG Base Excess -4.6 L ABG Hemoglobin 13.2 L Sodium Potassium Chloride Carbon Dioxide BUN Creatinine Glucose POC Glucose 250 H Hemoglobin A1c Lactic Acid Calcium Phosphorus Magnesium Ferritin ALT Lactate Dehydrogenase Total Creatine Kinase C-Reactive Protein Total Protein Albumin Urine Creatinine Salicylates Acetaminophen 07/28/22 07/28/22 07/28/22 05:20 05:20 06:05 WBC Hgb Hct MCV MCHC RDW Lymph % (Auto) [place] % (Auto) Lymph # (Auto) [place] # (Auto) Seg Neutrophils % Seg Neutrophils # PT INR D-Dimer ABG pH ABG pO2 ABG HCO3 ABG O2 Saturation ABG Base Excess ABG Hemoglobin Sodium 154 H Potassium Chloride 120.2 H Carbon Dioxide BUN 21 H Creatinine Glucose 318 H POC Glucose 292 H Hemoglobin A1c 11.0 H Lactic Acid Calcium 8.2 L Phosphorus Magnesium Ferritin ALT < 5 L Lactate Dehydrogenase Total Creatine Kinase C-Reactive Protein Total Protein 5.9 L D Albumin 2.9 L Urine Creatinine Salicylates Acetaminophen 07/28/22 07/28/22 07/28/22 07:58 10:26 11:26 WBC Hgb Hct MCV MCHC RDW Lymph % (Auto) [place] % (Auto) Lymph # (Auto) [place] # (Auto) Seg Neutrophils % Seg Neutrophils # PT INR D-Dimer ABG pH ABG pO2 130.8 H ABG HCO3 17.8 L ABG O2 Saturation ABG Base Excess -6.2 L ABG Hemoglobin 11.5 L Sodium Potassium Chloride Carbon Dioxide BUN Creatinine Glucose POC Glucose 297 H 289 H Hemoglobin A1c Lactic Acid Calcium Phosphorus Magnesium Ferritin ALT Lactate Dehydrogenase Total Creatine Kinase C-Reactive Protein Total Protein Albumin Urine Creatinine Salicylates Acetaminophen 07/28/22 07/28/22 07/29/22 14:19 21:25 07:12 WBC Hgb Hct MCV MCHC RDW Lymph % (Auto) [place] % (Auto) Lymph # (Auto) [place] # (Auto) Seg Neutrophils % Seg Neutrophils # PT INR D-Dimer ABG pH ABG pO2 ABG HCO3 ABG O2 Saturation ABG Base Excess ABG Hemoglobin Sodium Potassium Chloride Carbon Dioxide BUN Creatinine Glucose POC Glucose 299 H 342 H 250 H Hemoglobin A1c Lactic Acid Calcium Phosphorus Magnesium Ferritin ALT Lactate Dehydrogenase Total Creatine Kinase C-Reactive Protein Total Protein Albumin Urine Creatinine Salicylates Acetaminophen Chest x-ray: report reviewed, image reviewed Additional Studies: CHEST 1 VIEW 07/28/22 INDICATION / CLINICAL INFORMATION: follow up respiratory failure STUDY TIME: 245 COMPARISON: 07/27/2022 FINDINGS: SUPPORT DEVICES: Stable HEART / MEDIASTINUM: Stable LUNGS / PLEURA: Right basilar atelectatic changes and minimal infiltrate appear improved. No pneumothorax. ADDITIONAL FINDINGS: No significant additional findings. Allied health notes reviewed: nursing
--- NOTE | 2022-07-29 13:32 | Progress Note ---
Assessment and Plan 57-year-old male history of diabetes is from out of town was brought in by his for unresponsiveness. EMS arrived patient had respiratory failure. Patient was intubated for acute hypoxemia. Patient found to have DKA along with acute renal failure AMS Acute hypoxic respiratory failure MICK DKA Echo 07/26/2022-EF 55 to 60%. Posterior wall thickness is moderately increased. Septal thickness is moderately increased. Left ventricular diastolic function is indeterminate. Right ventricle systolic function is normal. Mild tricuspid regurgitation. No apparent pulmonary hypertension Plan: EKG shows sinus tach with nonspecific T abnormal Telemetry reviewed patient remains in sinus tach Continue to hold Entresto as patient does have normal LV function and due to elevated creatinine throughout hospital stay Will defer to patient's primary shop cooper for initiation or ANGELA or ARB Will initiate metoprolol 12.5 mg p.o. twice daily Plan of care patient verbalized understanding and acknowledgment Cardiac status otherwise stable Patient should follow-up with her primary shop cooper in 1 to 2 weeks after discharge however if patient remains in [place] and wishes they may follow-up with our group [facility] heart specialists in 1 to 2 weeks after discharge. Phone #[phone] Patient seen in conjunction with Dr. Fernandez who agrees with this plan of care - Patient Problems (1) AMS (altered mental status) Current Visit: Yes Status: Acute (2) Acute hypoxemic respiratory failure Current Visit: Yes Status: Acute (3) Acute kidney injury (MICK) with acute tubular necrosis (ATN) Current Visit: Yes Status: Acute (4) DKA (diabetic ketoacidosis) Current Visit: Yes Status: Acute (5) Metabolic acidosis Current Visit: Yes Status: Acute (6) Septic shock Current Visit: Yes Status: Acute Subjective Date of service: 07/29/22 Principal diagnosis: Acute hypoxemic respiratory failure; AMS; DKA; Sepsis; MICK; CHF; Obesity Interval history: Patient extubated and transferred to third floor. Patient resting in bed in no acute distress Sinus tach 100s-110s Objective Vital Signs Temp Pulse Pulse Resp BP Pulse Ox 07/29/22 05:41 97.1 F L 98 H 20 139/77 07/28/22 22:08 98 07/28/22 22:00 16 100 07/28/22 21:22 116 H 133/67 96 07/28/22 20:53 16 100 07/28/22 20:52 98 07/28/22 20:19 100 07/28/22 17:22 98.0 F 113 H 18 134/71 07/28/22 16:49 98.5 F 07/28/22 16:45 120 H 22 125/68 07/28/22 16:31 122 H 12 125/68 07/28/22 16:15 124 H 11 L 125/68 07/28/22 16:00 121 H 19 125/68 99 07/28/22 15:45 121 H 20 141/75 07/28/22 15:31 122 H 19 141/75 07/28/22 15:15 109 H 17 141/75 07/28/22 15:00 113 H 18 141/75 07/28/22 14:45 113 H 19 139/72 07/28/22 14:31 117 H 17 139/72 07/28/22 14:15 114 H 20 139/72 07/28/22 14:00 113 H 17 139/72 07/28/22 13:45 109 H 12 142/77 07/28/22 13:31 111 H 18 142/77 100 - Physical Examination General: No Apparent Distress HEENT: Positive: PERRL Neck: Positive: neck supple Cardiac: Positive: Reg Rate and Rhythm Lungs: Positive: Normal Breath Sounds Neuro: Positive: Other (Sedated but arousable) Abdomen: Positive: Soft Extremities: Present: normal, edema (Right greater than left) - Imaging and Cardiology Echo: report reviewed (Normal LV function EF 55 to 60% normal RV size and funct ion no significant regurgitation) - Telemetry EKG Rhythm: Sinus Tachycardia - EKG Sinus rhythms and dysrhythmias: sinus tachycardia - Allied health notes Allied health notes reviewed: nursing
== END 2022-07-29 15:35 | disposition home or self-care (01) | DRG 871 ==
LOC: ED 07:23 → CC1 12:01 → 3A 07-28 17:17
PROVIDERS: ADMIT Internal Medicine; ATTEND Internal Medicine
PROC: 5A1945Z Respiratory Ventilation, 24-96 Consecutive Hours (ICD-10-PCS; principal; 2022-07-26)
PROC: 04HY32Z Insertion of Monitoring Device into Lower Artery, Percutaneous Approach (ICD-10-PCS; 2022-07-26)
PROC: 4A033R1 Measurement of Arterial Saturation, Peripheral, Percutaneous Approach (ICD-10-PCS; 2022-07-26)
PROC: 02HV33Z Insertion of Infusion Device into Superior Vena Cava, Percutaneous Approach (ICD-10-PCS; 2022-07-26)
PROC: B548ZZA Ultrasonography of Superior Vena Cava, Guidance (ICD-10-PCS; 2022-07-26)
DX: A41.9 Sepsis, unspecified organism (principal); E10.10 Type 1 diabetes mellitus with ketoacidosis without coma; J96.01 Acute respiratory failure with hypoxia; N17.0 Acute kidney failure with tubular necrosis; G92.8 Other toxic encephalopathy; R65.21 Severe sepsis with septic shock; E44.0 Moderate protein-calorie malnutrition; E66.2 Morbid (severe) obesity with alveolar hypoventilation; E87.0 Hyperosmolality and hypernatremia; Z20.822 Contact with and (suspected) exposure to COVID-19; I50.9 Heart failure, unspecified; I11.0 Hypertensive heart disease with heart failure; Z88.8 Allergy status to other drugs, medicaments and biological substances; Z91.013 Allergy to seafood; M19.90 Unspecified osteoarthritis, unspecified site; E87.5 Hyperkalemia; E78.5 Hyperlipidemia, unspecified; E88.81 Metabolic syndrome and other insulin resistance; Z83.3 Family history of diabetes mellitus; Z82.49 Family history of ischemic heart disease and other diseases of the circulatory system; Z68.34 Body mass index [BMI] 34.0-34.9, adult
CPT/HCPCS: 36415; 36600; 70450; 71045; 74018; 76770; 80048; 80053; 80307; 80320; 81001; 82010; 82140; 82550; 82570; 82728; 82803; 82962; 83036; 83615; 83735; 83880; 84100; 84145; 84300; 84484; 85025; 85027; 85379; 85610; 86140; 87040; 87070; 87205; 87641; 93005; 93306; 93970; 94002; 94003; G0378; J2354; J3480; J3490; J7510; Q9967; C8929; G0480; J0696; J1644; J1815; J2405; J3370; J3475; J7030; J7040; J7070; U0003